=== PATIENT | male | born 1970 | race Caucasian/White ===

== ENCOUNTER 2016-05-04 08:08 | Inpatient (IN) | payer OTHER ==
[2016-05-04 10:10] VITALS: BMI 33.1
--- NOTE | 2016-05-04 11:50 | HP ---
CIWA Score - CIWA Score Nausea/Vomitin-No Nausea/No Vomiting Muscle Tremors: 4-Moderate,w/Arms Extend Anxiety: 3 Agitation: 4-Moderately Restless Paroxysmal Sweats: 3 Orientation: 0-Oriented Tacttile Disturbances: 0-None Auditory Disturbances: 0-None Visual Disturbances: 0-None Headache: 1-Very Mild CIWA-Ar Total Score: 15 Admission ROS BHS - HPI Chief Complaint: I am here for detox. Allergies/Adverse Reactions: Allergies Allergy/AdvReac Type Severity Reaction Status Date / Time No Known Allergies Allergy Verified 05/04/16 09:51 History of Present Illness: pt is a 46yr old male with a long history of alcohol dependence seeking detox for treatment. Exam Limitations: Intoxication - Ebola screening Have you traveled outside of the country in the last 21 days: No Have you had contact with anyone from an Ebola affected area: No Have you been sick,other than usual withdrawal symptoms: No Do you have a fever: No - Review of Systems Constitutional: Chills, Diaphoresis, Loss of Appetite, Night Sweats, Changes in sleep EENT: reports: Tearing, Nose Congestion Respiratory: reports: Cough, Productive cough (greenish/yellowish) Cardiac: reports: Syncope GI: reports: Nausea, Poor Appetite, Poor Fluid Intake, Indigestion : reports: No Symptoms Reported Musculoskeletal: reports: Back Pain Integumentary: reports: Bruising (ecchymosis to right side of buttock d/t fall 4 days ago), Flushing, Sweating Neuro: reports: Headache, Seizure (last seizure three yrs ago), Tingling, Tremors Endocrine: reports: Flushing, Intolerance to Cold, Intolerance to Heat Hematology: reports: No Symptoms Reported Psychiatric: reports: Judgement Intact, Mood/Affect Appropiate, Orientated x3, Agitated, Anxious Other Systems: Reviewed and Negative Patient History - Patient Medical History Hx Anemia: No Hx Asthma: No Hx Chronic Obstructive Pulmonary Disease (COPD): No Hx Cancer: No Hx Cardiac Disorders: No Hx Congestive Heart Failure: No Hx Hypertension: No Hx Hypercholesterolemia: Yes (NO MEDS) Hx Pacemaker: No HX Cerebrovascular Accident: No Hx Seizures: Yes (alcohol related-last episode was in 2013) Hx Dementia: No Hx Diabetes: No Hx Gastrointestinal Disorders: No Hx Liver Disease: No Hx Genitourinary Disorders: No Hx Sexually Transmitted Disorders: Yes (syphilis at age 17) Hx Renal Disease (ESRD): No Hx Thyroid Disease: No Hx Human Immunodeficiency Virus (HIV): No (NEGATIVE HX 09/20 last) Hx Hepatitis C: No Hx Depression: Yes Hx Suicide Attempt: No Hx Bipolar Disorder: Yes (on Seroquel and Zoloft as per Hx.) Hx Schizophrenia: No - Patient Surgical History Past Surgical History: No Hx Neurologic Surgery: No Hx Cataract Extraction: No Hx Cardiac Surgery: No Hx Lung Surgery: No Hx Breast Surgery: No Hx Breast Biopsy: No Hx Abdominal Surgery: No Hx Appendectomy: No Hx Cholecystectomy: No Hx Genitourinary Surgery: No Hx Section: No Hx Orthopedic Surgery: No Anesthesia Reaction: No - PPD History Previous Implant?: Yes Documented Results: Positive w/o proof Results: CXR neg 04/23 PPD to be Administered?: No - Reproductive History Patient is a Female of Child Bearing Age (11 -55 yrs old): No - Smoking Cessation Smoking history: Current every day smoker Have you smoked in the past 12 months: Yes Aproximately how many cigarettes per day: 5 Cigars Per Day: 0 Hx Chewing Tobacco Use: No Initiated information on smoking cessation: Yes 'Breaking Loose' booklet given: 05/04/16 - Substance & Tx. History Hx Alcohol Use: Yes Substance Use Type: Alcohol Hx Substance Use Treatment: Yes - Substances Abused Alcohol-vodka/beer Route: Oral Frequency: Daily Amount used: 4-5 pts./1-6 pk. Age of first use: 11 Date of Last Use: 05/04/16 Family Disease History - Family Disease History Family Disease History: Diabetes: Mother (HTN), Other: Father (alcohol,) , Mother Admission Physical Exam S - Vital Signs Vital Signs: Vital Signs - 24 hr 05/04/16 09:58 Temperature 97 F L Pulse Rate 112 H Respiratory 19 Rate Blood Pressure 136/86 - Physical General Appearance: Yes: Appropriately Dressed, Moderate Distress, Tremorous, Irritable, Sweating, Anxious HEENTM: Yes: Hearing grossly Normal, Nasal Congestion, Rhinorrhea Respiratory: Yes: Lungs Clear, Normal Breath Sounds, No Respiratory Distress Neck: Yes: No masses,lesions,Nodules Breast: Yes: Within Normal Limits Cardiology: Yes: Regular Rhythm, Regular Rate, S1, S2 Abdominal: Yes: Normal Bowel Sounds Genitourinary: Yes: Within Normal Limits Back: Yes: Normal Inspection Musculoskeletal: Yes: Back pain Extremities: Yes: Normal Inspection, Tremors Neurological: Yes: Fully Oriented, Alert, Normal Response Integumentary: Yes: Diaphoresis, Other (bruising with eccymosis to right side of buttock d/t fall) Lymphatic: Yes: Within Normal Limits - Diagnostic (1) Alcohol dependence with withdrawal, uncomplicated Current Visit: Yes Status: Chronic (2) Nicotine dependence Current Visit: Yes Status: Chronic Qualifiers: Nicotine product type: cigarettes Substance use status: uncomplicated Qualified Code(s): F17.210 - Nicotine dependence, cigarettes, uncomplicated (3) Alcohol related seizure Current Visit: No Status: Inactive (4) Hyperlipidemia Current Visit: Yes Status: Chronic Qualifiers: Hyperlipidemia type: unspecified Qualified Code(s): E78.5 - Hyperlipidemia, unspecified Cleared for Admission [facility] - Detox or Rehab [facility] Level of Care: Medically Managed Detox Regimen/Protocol: Librium [facility] Breath Alcohol Content Breath Alcohol Content: 0.189 Urine Drug Screen - Results Drug Screen Negative: No Urine Drug Screen Results: BZO-Benzodiazepines
[2016-05-04] MEDS ORDERED: MAGNESIUM HYDROX 2400MG/30ML ORAL SUSPENSION 30 ML CUP PO PRN (11:56)
[2016-05-04] MEDS ORDERED: IBUPROFEN 400 MG TABLET (FP) PO PRN (11:56)
[2016-05-04] MEDS ORDERED: MENTHOL/PHENOL 1 EACH UD MM PRN (11:56)
[2016-05-04] MEDS ORDERED: MAG HYDROX/AL HYDROX/SIMETH 30 ML UNIT-DOSE CUP PO PRN (11:56)
[2016-05-04] MEDS ORDERED: NICOTINE POLACRILEX 4 MG GUM BC PRN (11:56)
[2016-05-04] MEDS ORDERED: P-EPHED 60MG/TRIPROLIDI 2.5MG TABLET PO PRN (11:56)
[2016-05-04] MEDS ORDERED: MAGNESIUM CITRATE 300 ML BOTTLE PO PRN (11:56)
[2016-05-04] MEDS ORDERED: hydrOXYzine PAMOATE 50 MG CAPSULE (FP) PO PRN (11:56)
[2016-05-04] MEDS ORDERED: ACETAMINOPHEN 325 MG TABLET (FP) PO PRN (11:56)
[2016-05-04] MEDS ORDERED: LOPERAMIDE HCL 2 MG CAPSULE PO PRN (11:56)
[2016-05-04] MEDS ORDERED: chlordiazePOXIDE HCL 25 MG CAPSULE PO ONE (12:45)
[2016-05-04] MEDS: chlordiazePOXIDE HCL 25 MG CAPSULE PO SCH ×3 (13:44→22:28)
[2016-05-04] MEDS: LIDOCAINE 5% TOPICAL PATCH TP SCH (13:44)
--- NOTE | 2016-05-04 15:50 | CONSULT ---
[facility] Psychiatric Consult - Data Date of interview: 05/04/16 Admission source: [facility] Identifying data: Another admission to [facility] for this 46 y/o male seeking detox treatment on for alcohol dependence.Patient is single,a father of four,domiciled,unemployed and supported on SSI benefits. Substance Abuse History: - Smoking Cessation. Smoking history: Current every day smoker. Have you smoked in the past 12 months: Yes. Aproximately how many cigarettes per day: 5. Cigars Per Day: 0. Hx Chewing Tobacco Use: No. Initiated information on smoking cessation: Yes. 'Breaking Loose' booklet given : 05/04/16. - Substance & Tx. History. Hx Alcohol Use: Yes. Substance Use Type: Alcohol. Hx Substance Use Treatment: Yes. - Substances Abused. Alcohol-vodka/beer. Route: Oral. Frequency: Daily. Amount used: 4-5 pts./1-6 pk. Age of first use: 11. Date of Last Use: 05/04/16. Confirmed by the patient in my interview. Medical History: Hypercholesterolemia,arthritis and alcohol induced seizures ( not recent).Noted report of past treatment for syphilis at age 17. Psychiatric History: Psychiatric history remains unchanged since our last encounter in 01/2016.History as follows : diagnosed with Bipolar Disorder; history of two psychiatric hospitalizations ([facility] and [facility]).Onset of psychiatric disturbances in 2006.Mr Stokes gets his psychiatric outpatient services at [facility].Maintained on a regimen of seroquel 400 mg/hs (taken two days ago as per self-report).No reported history of suicide attempts. Physical/Sexual Abuse/Trauma History: Patient denies. Additional Comment: Urine Drug Screen Results: BZO-Benzodiazepines.Noted. Mental Status Exam - Mental Status Exam Alert and Oriented to: Time, Place, Person Cognitive Function: Grossly Intact Patient Appearance: Well Groomed (obese) Mood: Nervous, Withdrawn Affect: Mood Congruent Patient Behavior: Sedated (moderately), Fatigued Speech Pattern: Clear, Delayed Voice Loudness: Moderately Soft/Quiet Thought Process: Goal Oriented Thought Disorder: Not Present Hallucinations: Denies Suicidal Ideation: Denies Homicidal Ideation: Denies Insight/Judgement: Poor Sleep: Fair Appetite: Good Muscle strength/Tone: Normal Gait/Station: Normal Psychiatric Findings - Problem List ([place] 1, 2,3) (1) Alcohol dependence with withdrawal, uncomplicated Current Visit: Yes Status: Chronic (2) Nicotine dependence Current Visit: Yes Status: Acute Qualifiers: Nicotine product type: cigarettes Substance use status: uncomplicated Qualified Code(s): F17.210 - Nicotine dependence, cigarettes, uncomplicated (3) Bipolar II disorder Current Visit: Yes Status: Chronic (4) Substance induced mood disorder Current Visit: Yes Status: Acute (5) Hyperlipidemia Current Visit: Yes Status: Chronic Qualifiers: Hyperlipidemia type: unspecified Qualified Code(s): E78.5 - Hyperlipidemia, unspecified - Initial Treatment Plan Initial Treatment Plan: Psychoeducation.Detoxification.Medications : zoloft 100 mg po daily + seroquel 300 mg (reduced) po hs.Side effects/benefits discussed with this patient.Made aware of risk of EPS (akathisia,dystonias,dyskinesias), neuroleptic malignant syndrome,metabolic syndrome (seroquel),sexual dysfunction, suicidal ideation (zoloft).Patient agrees to continue care on these drugs in spite of explained risks.Observation.
[2016-05-04 18:50] LABS: URINE APPEARANCE CLEAR; URINE BILIRUBIN NEGATIVE (NEGATIVE); URINE BLOOD NEGATIVE (NEGATIVE); URINE COLOR AMBER; URINE GLUCOSE (UA) NEGATIVE (NEGATIVE); URINE KETONE NEGATIVE (NEGATIVE); URINE LEUK ESTERASE NEGATIVE (NEGATIVE); URINE NITRITE NEGATIVE (NEGATIVE); URINE PROTEIN NEGATIVE (NEGATIVE); URINE UROBILINOGEN 4.0 E.U/dl E.U./dl (0.2-1.0)
[2016-05-04] MEDS: chlordiazePOXIDE HCL 25 MG CAPSULE PO PRN (20:03)
[2016-05-04] MEDS: THIAMINE HCL 100 MG TABLET (FP) PO SCH (22:28)
[2016-05-04] MEDS: QUEtiapine FUMARATE 300 MG TABLET PO SCH (22:28)
[2016-05-04] MEDS: diphenhydrAMINE HCL 50 MG CAPSULE PO PRN (22:28)
[2016-05-04] MEDS: METHYL SALICYLATE/MENTHOL OINT 30 GM TUBE TP SCH (22:28)
[2016-05-05] MEDS: guaiFENesin/D-METHORPHAN HB 10 ML UNIT-DOSE CUPS PO PRN ×2 (00:57→17:34)
[2016-05-05] MEDS: chlordiazePOXIDE HCL 25 MG CAPSULE PO PRN ×2 (01:30→15:02)
[2016-05-05] MEDS: chlordiazePOXIDE HCL 25 MG CAPSULE PO SCH ×4 (05:31→22:32)
[2016-05-05 10:02] LABS: MCHC 33.5 g/dl (32.0-35.9); MEAN CELL VOLUME 104.4 fl (80-96); MEAN PLT VOLUME 8.1 fl (7.5-11.1); PLATELET COUNT 231 K/MM3 (134-434); RDW 13.8 % (11.9-15.9); WHITE BLOOD COUNT 6.4 K/mm3 (4.0-10.0)
[2016-05-05] MEDS: LIDOCAINE 5% TOPICAL PATCH TP SCH (10:26)
[2016-05-05] MEDS: PRENATAL VITAMINS W/ FOLIC ACID TABLET (FP) PO SCH (10:27)
[2016-05-05] MEDS: SERTRALINE HCL 50 MG TABLET (FP) PO SCH (10:27)
[2016-05-05] MEDS: METHYL SALICYLATE/MENTHOL OINT 30 GM TUBE TP SCH ×2 (10:27→22:33)
[2016-05-05 10:29] LABS: ALBUMIN 3.7 g/dl (3.4-5.0); ALK PHOS 94 U/L (45-117); ANION GAP 8 (8-16); BILIRUBIN,TOTAL 0.6 mg/dL (0.2-1.0); CALCIUM 8.2 mg/dL (8.5-10.1); CO2 27 mmol/L (21-32); CREATININE 0.8 mg/dL (0.7-1.3); GLUCOSE,RANDOM 134 mg/dL (74-106); SGOT/AST 85 U/L (15-37); SGPT/ALT 79 U/L (12-78); TOT PROT 7.1 g/dl (6.4-8.2)
--- NOTE | 2016-05-05 10:46 | PN ---
[facility] CIWA - CIWA Score Nausea/Vomitin-No Nausea/No Vomiting Muscle Tremors: 4-Moderate,w/Arms Extend Anxiety: 4-Mod. Anxious/Guarded Agitation: 4-Moderately Restless Paroxysmal Sweats: 1-Minimal Palms Moist Orientation: 0-Oriented Tacttile Disturbances: 3-Moderate Itch/Numb/Burn Auditory Disturbances: 0-None Visual Disturbances: 0-None Headache: 0-None Present CIWA-Ar Total Score: 16 S Progress Note (SOAP) Subjective: ANXIETY,TREMORS,SWEATS,INTERMITTENT SLEEP Objective: 05/05/16 10:45 Vital Signs Temperature 97 F L 05/05/16 09:58 Pulse Rate 110 H 05/05/16 09:58 Respiratory Rate 18 05/05/16 09:58 Blood Pressure 127/85 05/05/16 09:58 O2 Sat by Pulse Oximetry (%) Laboratory Last Values WBC 6.4 K/mm3 (4.0-10.0) D 05/05/16 06:00 RBC 3.33 M/mm3 (4.00-5.60) L D 05/05/16 06:00 Hgb 11.6 GM/dL (11.7-16.9) L D 05/05/16 06:00 Hct 34.7 % (35.4-49) L D 05/05/16 06:00 MCV 104.4 fl (80-96) H 05/05/16 06:00 MCHC 33.5 g/dl (32.0-35.9) 05/05/16 06:00 RDW 13.8 % (11.9-15.9) 05/05/16 06:00 Plt Count 231 K/MM3 (134-434) D 05/05/16 06:00 MPV 8.1 fl (7.5-11.1) 05/05/16 06:00 Sodium 140 mmol/L (136-145) 05/05/16 06:00 Potassium 3.6 mmol/L (3.5-5.1) 05/05/16 06:00 Chloride 105 mmol/L (98-107) 05/05/16 06:00 Carbon Dioxide 27 mmol/L (21-32) 05/05/16 06:00 Anion Gap 8 (8-16) 05/05/16 06:00 BUN 7 mg/dL (7-18) D 05/05/16 06:00 Creatinine 0.8 mg/dL (0.7-1.3) 05/05/16 06:00 Creat Clearance w eGFR > 60 (>60) 05/05/16 06:00 Random Glucose 134 mg/dL (74-106) H 05/05/16 06:00 Calcium 8.2 mg/dL (8.5-10.1) L 05/05/16 06:00 Total Bilirubin 0.6 mg/dL (0.2-1.0) D 05/05/16 06:00 AST 85 U/L (15-37) H D 05/05/16 06:00 ALT 79 U/L (12-78) H D 05/05/16 06:00 Alkaline Phosphatase 94 U/L (45-117) 05/05/16 06:00 Total Protein 7.1 g/dl (6.4-8.2) 05/05/16 06:00 Albumin 3.7 g/dl (3.4-5.0) 05/05/16 06:00 Urine Color Jo Ann 05/04/16 13:55 Urine Appearance Clear 05/04/16 13:55 Urine pH 5.0 (5.0-8.0) 05/04/16 13:55 Ur Specific Bernice 1.024 (1.001-1.035) 05/04/16 13:55 Urine Protein Negative (NEGATIVE) 05/04/16 13:55 Urine Glucose (UA) Negative (NEGATIVE) 05/04/16 13:55 Urine Ketones Negative (NEGATIVE) 05/04/16 13:55 Urine Blood Negative (NEGATIVE) 05/04/16 13:55 Urine Nitrite Negative (NEGATIVE) 05/04/16 13:55 Urine Bilirubin Negative (NEGATIVE) 05/04/16 13:55 Urine Urobilinogen 4.0 e.u/dl E.U./dl (0.2-1.0) 05/04/16 13:55 Ur Leukocyte Esterase Negative (NEGATIVE) 05/04/16 13:55 Hepatitis C Antibody <0.1 s/co ratio (0.0-0.9) 05/04/16 12:00 Assessment: 05/05/16 10:45 WITHDRAWAL SX Plan: CONTINUE DETOX
--- NOTE | 2016-05-05 15:35 | EKG ---
Test Reason : Blood Pressure : / mmHG Vent. Rate : 090 BPM Atrial Rate : 090 BPM P-R Int : 182 ms QRS Dur : 090 ms QT Int : 380 ms P-R-T Axes : 041 029 021 degrees QTc Int : 464 ms NORMAL SINUS RHYTHM NORMAL ECG WHEN COMPARED WITH ECG OF 21-JUN-2015 10:50, NO SIGNIFICANT CHANGE WAS FOUND Confirmed by CAMILO MNOTEZ MD ([id number]) on 05/05/2016 3:35:17 PM Referred By: Jesus Green Confirmed By:CAMILO MONTEZ MD
[2016-05-05] MEDS: QUEtiapine FUMARATE 300 MG TABLET PO SCH (22:32)
[2016-05-05] MEDS: THIAMINE HCL 100 MG TABLET (FP) PO SCH (22:32)
[2016-05-05] MEDS: diphenhydrAMINE HCL 50 MG CAPSULE PO PRN (22:33)
[2016-05-06] MEDS: chlordiazePOXIDE HCL 25 MG CAPSULE PO SCH (05:30)
[2016-05-06] MEDS: PRENATAL VITAMINS W/ FOLIC ACID TABLET (FP) PO SCH (10:33)
[2016-05-06] MEDS: chlordiazePOXIDE 5 MG CAPSULE PO SCH ×3 (10:33→22:31)
[2016-05-06] MEDS: SERTRALINE HCL 50 MG TABLET (FP) PO SCH (10:33)
[2016-05-06] MEDS: METHYL SALICYLATE/MENTHOL OINT 30 GM TUBE TP SCH ×2 (10:33→22:34)
[2016-05-06] MEDS: LIDOCAINE 5% TOPICAL PATCH TP SCH (10:34)
--- NOTE | 2016-05-06 11:55 | PN ---
[facility] CIWA - CIWA Score Nausea/Vomitin-No Nausea/No Vomiting Muscle Tremors: 4-Moderate,w/Arms Extend Anxiety: 4-Mod. Anxious/Guarded Agitation: 4-Moderately Restless Paroxysmal Sweats: 1-Minimal Palms Moist Orientation: 0-Oriented Tacttile Disturbances: 3-Moderate Itch/Numb/Burn Auditory Disturbances: 0-None Visual Disturbances: 0-None Headache: 0-None Present CIWA-Ar Total Score: 16 BHS Progress Note (SOAP) Subjective: ANXIETY,SWEATS,FATIGUE. Objective: 05/06/16 11:54 Vital Signs Temperature 98.3 F 05/06/16 09:48 Pulse Rate 89 05/06/16 09:48 Respiratory Rate 18 05/06/16 09:48 Blood Pressure 123/93 05/06/16 09:48 O2 Sat by Pulse Oximetry (%) Laboratory Last Values WBC 6.4 K/mm3 (4.0-10.0) D 05/05/16 06:00 RBC 3.33 M/mm3 (4.00-5.60) L D 05/05/16 06:00 Hgb 11.6 GM/dL (11.7-16.9) L D 05/05/16 06:00 Hct 34.7 % (35.4-49) L D 05/05/16 06:00 MCV 104.4 fl (80-96) H 05/05/16 06:00 MCHC 33.5 g/dl (32.0-35.9) 05/05/16 06:00 RDW 13.8 % (11.9-15.9) 05/05/16 06:00 Plt Count 231 K/MM3 (134-434) D 05/05/16 06:00 MPV 8.1 fl (7.5-11.1) 05/05/16 06:00 Sodium 140 mmol/L (136-145) 05/05/16 06:00 Potassium 3.6 mmol/L (3.5-5.1) 05/05/16 06:00 Chloride 105 mmol/L (98-107) 05/05/16 06:00 Carbon Dioxide 27 mmol/L (21-32) 05/05/16 06:00 Anion Gap 8 (8-16) 05/05/16 06:00 BUN 7 mg/dL (7-18) D 05/05/16 06:00 Creatinine 0.8 mg/dL (0.7-1.3) 05/05/16 06:00 Creat Clearance w eGFR > 60 (>60) 05/05/16 06:00 Random Glucose 134 mg/dL (74-106) H 05/05/16 06:00 Calcium 8.2 mg/dL (8.5-10.1) L 05/05/16 06:00 Total Bilirubin 0.6 mg/dL (0.2-1.0) D 05/05/16 06:00 AST 85 U/L (15-37) H D 05/05/16 06:00 ALT 79 U/L (12-78) H D 05/05/16 06:00 Alkaline Phosphatase 94 U/L (45-117) 05/05/16 06:00 Total Protein 7.1 g/dl (6.4-8.2) 05/05/16 06:00 Albumin 3.7 g/dl (3.4-5.0) 05/05/16 06:00 Urine Color Jo Ann 05/04/16 13:55 Urine Appearance Clear 05/04/16 13:55 Urine pH 5.0 (5.0-8.0) 05/04/16 13:55 Ur Specific Macy 1.024 (1.001-1.035) 05/04/16 13:55 Urine Protein Negative (NEGATIVE) 05/04/16 13:55 Urine Glucose (UA) Negative (NEGATIVE) 05/04/16 13:55 Urine Ketones Negative (NEGATIVE) 05/04/16 13:55 Urine Blood Negative (NEGATIVE) 05/04/16 13:55 Urine Nitrite Negative (NEGATIVE) 05/04/16 13:55 Urine Bilirubin Negative (NEGATIVE) 05/04/16 13:55 Urine Urobilinogen 4.0 e.u/dl E.U./dl (0.2-1.0) 05/04/16 13:55 Ur Leukocyte Esterase Negative (NEGATIVE) 05/04/16 13:55 RPR Titer Nonreactive (NONREACTIVE) 05/05/16 06:00 Hepatitis C Antibody <0.1 s/co ratio (0.0-0.9) 05/04/16 12:00 Assessment: 05/06/16 11:55 WITHDRAWAL SX Plan: CONTINUE DETOX
[2016-05-06] MEDS: diphenhydrAMINE HCL 50 MG CAPSULE PO PRN (22:31)
[2016-05-06] MEDS: THIAMINE HCL 100 MG TABLET (FP) PO SCH (22:31)
[2016-05-06] MEDS: QUEtiapine FUMARATE 300 MG TABLET PO SCH (22:31)
[2016-05-07] MEDS: chlordiazePOXIDE 5 MG CAPSULE PO SCH (05:26)
--- NOTE | 2016-05-07 10:03 | PN ---
BHS Progress Note (SOAP) Subjective: DECREASED ANXIETY,SWEATS.DETOX PROCEEDING WELL. Objective: 05/07/16 10:02 Vital Signs Temperature 95.7 F L 05/07/16 06:11 Pulse Rate 67 05/07/16 09:19 Respiratory Rate 18 05/07/16 09:19 Blood Pressure 123/88 05/07/16 09:19 O2 Sat by Pulse Oximetry (%) Assessment: 05/07/16 10:02 DECREASED WITHDRAWAL SX Plan: CONTINUE DETOX.
[2016-05-07] MEDS: SERTRALINE HCL 50 MG TABLET (FP) PO SCH (10:28)
[2016-05-07] MEDS: PRENATAL VITAMINS W/ FOLIC ACID TABLET (FP) PO SCH (10:28)
[2016-05-07] MEDS: METHYL SALICYLATE/MENTHOL OINT 30 GM TUBE TP SCH ×2 (10:28→22:26)
[2016-05-07] MEDS: chlordiazePOXIDE HCL 10 MG CAPSULE PO SCH ×3 (10:28→22:26)
[2016-05-07] MEDS: LIDOCAINE 5% TOPICAL PATCH TP SCH (10:29)
[2016-05-07] MEDS: guaiFENesin/D-METHORPHAN HB 10 ML UNIT-DOSE CUPS PO PRN (20:11)
[2016-05-07] MEDS: THIAMINE HCL 100 MG TABLET (FP) PO SCH (22:26)
[2016-05-07] MEDS: QUEtiapine FUMARATE 300 MG TABLET PO SCH (22:26)
[2016-05-07] MEDS: diphenhydrAMINE HCL 50 MG CAPSULE PO PRN (22:26)
[2016-05-08] MEDS: chlordiazePOXIDE HCL 10 MG CAPSULE PO SCH (05:28)
[2016-05-08 06:30] VITALS: BP 105/70; PULSE 85; TEMP 96
--- NOTE | 2016-05-08 08:33 | DS ---
[facility] Detox Discharge Summary Admission Date: 05/04/16 Discharge Date: 05/08/16 - History Present History: Alcohol Dependence Additional Comments: DETOX COMPLETED.ALERT O X 3. NAD. FOLLOW UP WITH REHAB REFERRAL/PMD FOR MEDICAL MANAGEMENT. Pertinent Past History: HYPERCHOLESTEROLEMIA SEIZURE DISORDER DEPRESSION - Physical Exam Results Vital Signs: Vital Signs Temperature 96.0 F L 05/08/16 06:29 Pulse Rate 85 05/08/16 06:29 Respiratory Rate 18 05/08/16 06:29 Blood Pressure 105/70 05/08/16 06:29 O2 Sat by Pulse Oximetry (%) Pertinent Admission Physical Exam Findings: WITHDRAWAL SX - Treatment Hospital Course: Detox Protocol Followed, Detoxed Safely, Responded well, Discharged Condition Good - Medication Discharge Medications: Ambulatory Orders Sertraline HCl [Zoloft -] 100 mg PO DAILY #30 tablet 06/22/15 Quetiapine Fumarate [Seroquel -] 400 mg PO HS #30 tablet 09/05/15 Quetiapine Fumarate [Seroquel -] 400 mg PO HS #30 tab 05/04/16 Sertraline HCl [Zoloft -] 100 mg PO DAILY #30 tablet 05/04/16 - Diagnosis (1) Head injury Status: Resolved Qualifiers: Qualified Code(s): S09.90XA - Unspecified injury of head, initial encounter (2) Nicotine dependence Status: Acute Qualifiers: Nicotine product type: cigarettes Substance use status: in withdrawal Qualified Code(s): F17.213 - Nicotine dependence, cigarettes, with withdrawal (3) Alcohol dependence with withdrawal, uncomplicated Status: Acute (4) Arthritis Status: Chronic (5) Hyperlipidemia Status: Chronic Qualifiers: Hyperlipidemia type: unspecified Qualified Code(s): E78.5 - Hyperlipidemia, unspecified (6) Seizure Status: Suspected - AMA Did Patient Leave Against Medical Advice: No
[2016-05-08] MEDS: PRENATAL VITAMINS W/ FOLIC ACID TABLET (FP) PO SCH (10:07)
[2016-05-08] MEDS: METHYL SALICYLATE/MENTHOL OINT 30 GM TUBE TP SCH (10:07)
[2016-05-08] MEDS: LIDOCAINE 5% TOPICAL PATCH TP SCH (10:07)
[2016-05-08] MEDS: SERTRALINE HCL 50 MG TABLET (FP) PO SCH (10:07)
== END 2016-05-08 09:30 | disposition home or self-care (01) | DRG 775 ==
LOC: YASAS 08:08 → Y3N 12:39
PROVIDERS: ADMIT Internal Medicine; ATTEND Internal Medicine
PROC: HZ2ZZZZ Detoxification Services for Substance Abuse Treatment (ICD-10-PCS; principal; 2016-05-08)
DX: F10.230 Alcohol dependence with withdrawal, uncomplicated (principal); F17.213 Nicotine dependence, cigarettes, with withdrawal; F31.81 Bipolar II disorder; M15.9 Polyosteoarthritis, unspecified; E78.5 Hyperlipidemia, unspecified; Z86.69 Personal history of other diseases of the nervous system and sense organs; S09.8XXA Other specified injuries of head, initial encounter; S30.0XXA Contusion of lower back and pelvis, initial encounter; W19.XXXA Unspecified fall, initial encounter; Y93.89 Activity, other specified; Y92.89 Other specified places as the place of occurrence of the external cause
CPT/HCPCS: 36415; 80053; 81003; 85027; 86593; 93005; 93010

== ENCOUNTER 2016-07-29 08:20 | Inpatient (IN) | payer OTHER ==
[2016-07-29 09:59] VITALS: BMI 31.4
--- NOTE | 2016-07-29 13:56 | HP ---
CIWA Score - CIWA Score Nausea/Vomitin Muscle Tremors: 4-Moderate,w/Arms Extend Anxiety: 4-Mod. Anxious/Guarded Agitation: 4-Moderately Restless Paroxysmal Sweats: 1-Minimal Palms Moist Orientation: 0-Oriented Tacttile Disturbances: 3-Moderate Itch/Numb/Burn Auditory Disturbances: 0-None Visual Disturbances: 0-None Headache: 1-Very Mild CIWA-Ar Total Score: 22 Admission ROS BHS - HPI Chief Complaint: DETOX TX FOR ALCOHOL DEPENDENCE/ACUT ALCOHOL INTOXICATION Allergies/Adverse Reactions: Allergies Allergy/AdvReac Type Severity Reaction Status Date / Time No Known Allergies Allergy Verified 07/29/16 10:27 History of Present Illness: 46 Y/O H/M WITH A HX OF ALCOHOL DEPENDENCE SEEKING DETOX TX. PT STATES HE WAS ON [facility] LAST NIGHT FOR ALCOHOL INTOXICATION, DISCHARGED THIS MORNING AND REFERRED TO DETOX/REHAB. Exam Limitations: No Limitations - Ebola screening Have you traveled outside of the country in the last 21 days: No Have you had contact with anyone from an Ebola affected area: No Have you been sick,other than usual withdrawal symptoms: No - Review of Systems Constitutional: Loss of Appetite, Night Sweats, Changes in sleep EENT: reports: Blurred Vision, Tearing, Nose Congestion, Dental Problems ( MISSING TEETH) Respiratory: reports: No Symptoms reported Cardiac: reports: Lightheadedness GI: reports: Diarrhea, Nausea, Poor Appetite, Poor Fluid Intake, Vomiting, Indigestion, Abdominal cramping : reports: No Symptoms Reported Musculoskeletal: reports: Muscle Pain, Other (ARTHRITIS KNEES) Integumentary: reports: No Symptoms Reported Neuro: reports: Headache, Seizure (DUE TO ALCOHOL WITHDRAWALS), Tremors, Unsteady Gait, Dizziness Endocrine: reports: No Symptoms Reported Hematology: reports: Anemia Psychiatric: reports: Orientated x3, Agitated, Anxious, Depressed Other Systems: Reviewed and Negative Patient History - Patient Medical History Hx Anemia: Yes (NO CURRENT MED) Hx Asthma: No Hx Chronic Obstructive Pulmonary Disease (COPD): No Hx Cancer: No Hx Cardiac Disorders: No Hx Congestive Heart Failure: No Hx Hypertension: Yes (NO CURRENT MED. LISINOPRIL 5 MG IN 2016 ON PHARM REC.) Hx Hypercholesterolemia: Yes (NO MEDS) Hx Pacemaker: No HX Cerebrovascular Accident: No Hx Seizures: Yes (alcohol related-last episode was in 2013) Hx Dementia: No Hx Diabetes: No Hx Gastrointestinal Disorders: No Hx Liver Disease: No Hx Genitourinary Disorders: No Hx Sexually Transmitted Disorders: Yes (syphilis) Hx Renal Disease (ESRD): No Hx Thyroid Disease: No Hx Human Immunodeficiency Virus (HIV): No (NEGATIVE HX ) Hx Hepatitis C: No Hx Depression: Yes Hx Suicide Attempt: No (DENIES) Hx Bipolar Disorder: Yes (on Seroquel and Zoloft as per Hx.) Hx Schizophrenia: No - Patient Surgical History Past Surgical History: No Hx Neurologic Surgery: No Hx Cataract Extraction: No Hx Cardiac Surgery: No Hx Lung Surgery: No Hx Breast Surgery: No Hx Breast Biopsy: No Hx Abdominal Surgery: No Hx Appendectomy: No Hx Cholecystectomy: No Hx Genitourinary Surgery: No Hx Orthopedic Surgery: No Anesthesia Reaction: No - PPD History Previous Implant?: Yes Documented Results: Positive w/o proof Results: CXR neg 04/23 PPD to be Administered?: No - Reproductive History Patient is a Female of Child Bearing Age (11 -55 yrs old): No (MALE) - Smoking Cessation Smoking history: Current every day smoker Have you smoked in the past 12 months: Yes Aproximately how many cigarettes per day: 9 Cigars Per Day: 0 Hx Chewing Tobacco Use: No Initiated information on smoking cessation: Yes 'Breaking Loose' booklet given: 07/29/16 - Substance & Tx. History Hx Alcohol Use: Yes (VODKA) Hx Substance Use: No (DECLINED) Substance Use Type: Alcohol Hx Substance Use Treatment: Yes ([facility]-DETOX) - Substances Abused Alcohol-beer/vodka Route: Oral Frequency: Daily Amount used: 7 (16 oz.)/2-3 pts. Age of first use: 11 Date of Last Use: 07/28/16 Family Disease History - Family Disease History Family Disease History: Diabetes: Mother (HTN), Other: Father (alcohol,) , Mother Admission Physical Exam S - Vital Signs Vital Signs: Vital Signs - 24 hr 07/29/16 09:55 Temperature 97.9 F Pulse Rate 91 H Respiratory 20 Rate Blood Pressure 123/83 - Physical General Appearance: Yes: Alcohol on Breath, Intoxicated, Obese, Anxious HEENTM: Yes: EOMI, Normocephalic, KAYLYN, Pharynx Normal, Nasal Congestion, Rhinorrhea Respiratory: Yes: Chest Non-Tender, Lungs Clear, Normal Breath Sounds, No Respiratory Distress Neck: Yes: Supple, Trachea in good position Breast: Yes: Breast Exam Deferred Cardiology: Yes: Regular Rhythm, Regular Rate, S1, S2 Abdominal: Yes: Normal Bowel Sounds, Non Tender, Soft Genitourinary: Yes: Other (N/C) Back: Yes: Within Normal Limits Musculoskeletal: Yes: full range of Motion, Gait Steady Extremities: Yes: Normal Range of Motion, Non-Tender, Tremors, Other (BRUISE ON OUTER ASPECT LOWER LEFT LEG DUE TO FALL) Neurological: Yes: vice president quality II-XII NML intact, Fully Oriented, Alert, Motor Strength 5/5 Integumentary: Yes: Dry, Warm Lymphatic: Yes: Within Normal Limits - Diagnostic (1) Alcohol dependence with withdrawal, uncomplicated Current Visit: Yes Status: Acute (2) Nicotine dependence Current Visit: Yes Status: Chronic Qualifiers: Nicotine product type: cigarettes Substance use status: in withdrawal Qualified Code(s): F17.213 - Nicotine dependence, cigarettes, with withdrawal (3) Arthritis Current Visit: Yes Status: Chronic Comment: BOTH KNEES AND LEFT WRIST (4) Seizure Current Visit: Yes Status: Suspected Qualifiers: Convulsion type: unspecified Qualified Code(s): R56.9 - Unspecified convulsions (5) Hyperlipidemia Current Visit: Yes Status: Suspected Qualifiers: Hyperlipidemia type: unspecified Qualified Code(s): E78.5 - Hyperlipidemia, unspecified Comment: NO CURRENT MED Cleared for Admission [facility] - Detox or Rehab [facility] Level of Care: Medically Managed Detox Regimen/Protocol: Librium [facility] Breath Alcohol Content Breath Alcohol Content: 0.245 Urine Drug Screen - Results Drug Screen Negative: No Urine Drug Screen Results: BZO-Benzodiazepines
[2016-07-29] MEDS ORDERED: LOPERAMIDE HCL 2 MG CAPSULE PO PRN (14:06)
[2016-07-29] MEDS ORDERED: ACETAMINOPHEN 325 MG TABLET (FP) PO PRN (14:06)
[2016-07-29] MEDS ORDERED: NICOTINE POLACRILEX 2 MG GUM BUC PRN (14:06)
[2016-07-29] MEDS ORDERED: P-EPHED 60MG/TRIPROLIDI 2.5MG TABLET PO PRN (14:06)
[2016-07-29] MEDS ORDERED: MAGNESIUM HYDROX 2400MG/30ML ORAL SUSPENSION 30 ML CUP PO PRN (14:06)
[2016-07-29] MEDS ORDERED: MAG HYDROX/AL HYDROX/SIMETH 30 ML UNIT-DOSE CUP PO PRN (14:06)
[2016-07-29] MEDS ORDERED: IBUPROFEN 400 MG TABLET (FP) PO PRN (14:06)
[2016-07-29] MEDS ORDERED: guaiFENesin/D-METHORPHAN HB 10 ML UNIT-DOSE CUPS PO PRN (14:06)
[2016-07-29] MEDS ORDERED: MENTHOL/PHENOL 1 EACH UD MM PRN (14:06)
[2016-07-29] MEDS ORDERED: diphenhydrAMINE HCL 50 MG CAPSULE PO PRN (14:06)
[2016-07-29] MEDS ORDERED: MAGNESIUM CITRATE 300 ML BOTTLE PO PRN (14:06)
[2016-07-29] MEDS ORDERED: chlordiazePOXIDE HCL 25 MG CAPSULE PO ONE (15:08)
[2016-07-29] MEDS: NICOTINE 14 MG/24 HOURS TOPICAL PATCH TD SCH (15:45)
[2016-07-29] MEDS: chlordiazePOXIDE HCL 25 MG CAPSULE PO SCH ×2 (17:19→22:13)
[2016-07-29 18:14] LABS: URINE APPEARANCE CLEAR; URINE BILIRUBIN NEGATIVE (NEGATIVE); URINE BLOOD NEGATIVE (NEGATIVE); URINE COLOR LTYELLOW; URINE GLUCOSE (UA) NEGATIVE (NEGATIVE); URINE KETONE NEGATIVE (NEGATIVE); URINE LEUK ESTERASE NEGATIVE (NEGATIVE); URINE NITRITE NEGATIVE (NEGATIVE); URINE PROTEIN NEGATIVE (NEGATIVE); URINE UROBILINOGEN NEGATIVE E.U./dl (0.2-1.0)
--- NOTE | 2016-07-29 19:08 | CONSULT ---
[facility] Psychiatric Consult - Data Date of interview: 07/29/16 Admission source: [facility] Identifying data: Readmission to [facility] for this 46 y/o male seeking detox treatment on for alcohol dependence.Patient is single,a father of four,domiciled,unemployed and supported on SSI benefits. Substance Abuse History: - Smoking Cessation. Smoking history: Current every day smoker. Have you smoked in the past 12 months: Yes. Aproximately how many cigarettes per day: 9. Cigars Per Day: 0. Hx Chewing Tobacco Use: No. Initiated information on smoking cessation: Yes. 'Breaking Loose' booklet given : 07/29/16. - Substance & Tx. History. Hx Alcohol Use: Yes (VODKA). Hx Substance Use: No (DECLINED). Substance Use Type: Alcohol. Hx Substance Use Treatment: Yes ([facility]). - Substances Abused. Alcohol-beer/vodka. Route: Oral. Frequency: Daily. Amount used: 7 (16 oz.)/2-3 pts. Age of first use: 11. Date of Last Use: 07/28/16. Confirmed by patient. Medical History: Hypercholesterolemia,arthritis and alcohol induced seizures ( not recent).Noted report of past treatment for syphilis (age 17). Psychiatric History: Diagnosed with Bipolar Disorder;history of two psychiatric hospitalizations ([facility] and [facility]).Onset of psychiatric disturbances in 2006.Mr Stokes still gets his psychiatric outpatient services at [facility] [place].Maintained on a regimen of seroquel 400 mg/hs ( taken a week ago as per self-report).No reported history of suicide attempts. Physical/Sexual Abuse/Trauma History: Patient denies. Additional Comment: Urine Drug Screen Results: BZO-Benzodiazepines.Noted. Mental Status Exam - Mental Status Exam Alert and Oriented to: Time, Place, Person Cognitive Function: Good Patient Appearance: Well Groomed Mood: Nervous, Withdrawn, Anxious Affect: Mood Congruent, Constricted Patient Behavior: Fatigued, Cooperative Speech Pattern: Clear (lebanese-speaking) Voice Loudness: Normal Thought Process: Goal Oriented Thought Disorder: Not Present Hallucinations: Denies Suicidal Ideation: Denies Homicidal Ideation: Denies Insight/Judgement: Poor Sleep: Poorly, Difficulty falling asleep Appetite: Good Muscle strength/Tone: Normal Gait/Station: Normal Psychiatric Findings - Problem List ([place] 1, 2,3) (1) Alcohol dependence with withdrawal, uncomplicated Current Visit: Yes Status: Acute (2) Nicotine dependence Current Visit: Yes Status: Acute Qualifiers: Nicotine product type: cigarettes Substance use status: in withdrawal Qualified Code(s): F17.213 - Nicotine dependence, cigarettes, with withdrawal (3) Substance induced mood disorder Current Visit: Yes Status: Acute (4) Bipolar II disorder Current Visit: Yes Status: Chronic (5) Arthritis Current Visit: Yes Status: Chronic Comment: BOTH KNEES AND LEFT WRIST (6) Hyperlipidemia Current Visit: Yes Status: Suspected Qualifiers: Hyperlipidemia type: unspecified Qualified Code(s): E78.5 - Hyperlipidemia, unspecified Comment: NO CURRENT MED (7) Insomnia Current Visit: Yes Status: Acute - Initial Treatment Plan Initial Treatment Plan: Psychoeducation.Detoxification in progress.Seroquel 200 mg po hs (intentionally reduced in view of self-report of non-adherence for one week + current polypharmacy).Will titrate back to 400 mg/hs in next 24 hours if dose is well tolerated (absence of oversedation/orthostatic hypotension) .Patient is informed of this strategy.Mr Stokes is in agreement with careplan.Side effects/benefits of seroquel are discussed with the patient.Observation.
[2016-07-29] MEDS: chlordiazePOXIDE HCL 25 MG CAPSULE PO PRN (19:23)
[2016-07-29] MEDS: QUEtiapine FUMARATE 200 MG TABLET PO SCH (22:13)
[2016-07-29] MEDS: THIAMINE HCL 100 MG TABLET (FP) PO SCH (22:13)
[2016-07-30] MEDS: chlordiazePOXIDE HCL 25 MG CAPSULE PO SCH ×4 (06:03→22:32)
[2016-07-30] MEDS: chlordiazePOXIDE HCL 25 MG CAPSULE PO PRN ×2 (08:38→14:34)
[2016-07-30 10:06] LABS: MCH 35.6 pg (25.7-33.7); MCHC 34.3 g/dl (32.0-35.9); PLATELET COUNT 571 K/MM3 (134-434); RDW 14.4 % (11.9-15.9); WHITE BLOOD COUNT 10.3 K/mm3 (4.0-10.0)
[2016-07-30] MEDS: PRENATAL VITAMINS W/ FOLIC ACID TABLET (FP) PO SCH (10:27)
[2016-07-30] MEDS: NICOTINE 14 MG/24 HOURS TOPICAL PATCH TD SCH (10:27)
[2016-07-30 10:37] LABS: ALBUMIN 3.7 g/dl (3.4-5.0); ALK PHOS 92 U/L (45-117); ANION GAP 12 (8-16); BILIRUBIN,TOTAL 0.2 mg/dL (0.2-1.0); CALCIUM 8.6 mg/dL (8.5-10.1); CO2 22 mmol/L (21-32); COCKROFT - GAULT 136.92; CREATININE 0.8 mg/dL (0.7-1.3); GLUCOSE,RANDOM 123 mg/dL (74-106); SGOT/AST 64 U/L (15-37); SGPT/ALT 60 U/L (12-78); TOT PROT 7.6 g/dl (6.4-8.2)
[2016-07-30] MEDS ORDERED: cloNIDine HCL 0.1 MG TABLET PO ONE (11:25)
--- NOTE | 2016-07-30 11:28 | PN ---
S CIWA - CIWA Score Nausea/Vomitin-No Nausea/No Vomiting Muscle Tremors: 4-Moderate,w/Arms Extend Anxiety: 3 Agitation: 4-Moderately Restless Paroxysmal Sweats: 3 Orientation: 0-Oriented Tacttile Disturbances: 0-None Auditory Disturbances: 0-None Visual Disturbances: 0-None Headache: 1-Very Mild CIWA-Ar Total Score: 15 BHS Progress Note (SOAP) Subjective: sweats shakes interrupted sleep body aches diarrhea Objective: 07/30/16 11:26 Vital Signs Temperature 98.2 F 07/30/16 09:45 Pulse Rate 109 07/30/16 09:45 Respiratory Rate 16 07/30/16 09:45 Blood Pressure 146/103 07/30/16 09:45 O2 Sat by Pulse Oximetry (%) Laboratory Tests 07/29/16 07/30/16 07/30/16 17:01 06:00 06:00 WBC 10.3 H D RBC 3.66 L Hgb 13.0 D Hct 38.0 MCV 104.0 H MCHC 34.3 RDW 14.4 Plt Count 571 H D MPV 8.0 Sodium 143 Potassium 4.2 Chloride 109 H Carbon Dioxide 22 Anion Gap 12 BUN 7 Creatinine 0.8 Creat Clearance w eGFR > 60 Random Glucose 123 H Calcium 8.6 Total Bilirubin 0.2 D AST 64 H D ALT 60 D Alkaline Phosphatase 92 Total Protein 7.6 Albumin 3.7 Urine Color Ltyellow Urine Appearance Clear Urine pH 5.0 Ur Specific [place] 1.025 Urine Protein Negative Urine Glucose (UA) Negative Urine Ketones Negative Urine Blood Negative Urine Nitrite Negative Urine Bilirubin Negative Urine Urobilinogen Negative Ur Leukocyte Esterase Negative awake/alert ambulating no acute distress Assessment: 07/30/16 11:28 withdrawal sx Plan: continue detox increase fluids clonidine 0.1mg x one for increased BP monitor BP
--- NOTE | 2016-07-30 13:12 | EKG ---
Test Reason : Blood Pressure : / mmHG Vent. Rate : 095 BPM Atrial Rate : 095 BPM P-R Int : 180 ms QRS Dur : 090 ms QT Int : 370 ms P-R-T Axes : 036 029 025 degrees QTc Int : 464 ms NORMAL SINUS RHYTHM NORMAL ECG WHEN COMPARED WITH ECG OF 04-MAY-2016 13:56, NO SIGNIFICANT CHANGE WAS FOUND Confirmed by ARETHA BHAGAT MD ([id number]) on 07/30/2016 1:12:22 PM Referred By: Shahram Cuevas Confirmed By:ARETHA BHAGAT MD
[2016-07-30] MEDS: hydrOXYzine PAMOATE 50 MG CAPSULE (FP) PO PRN ×2 (15:10→19:06)
[2016-07-30] MEDS: THIAMINE HCL 100 MG TABLET (FP) PO SCH (22:32)
[2016-07-30] MEDS: QUEtiapine FUMARATE 200 MG TABLET PO SCH (22:33)
[2016-07-31] MEDS: chlordiazePOXIDE HCL 25 MG CAPSULE PO SCH ×2 (06:00→10:36)
[2016-07-31] MEDS: NICOTINE 14 MG/24 HOURS TOPICAL PATCH TD SCH (10:36)
[2016-07-31] MEDS: PRENATAL VITAMINS W/ FOLIC ACID TABLET (FP) PO SCH (10:36)
[2016-07-31] MEDS: hydrOXYzine PAMOATE 50 MG CAPSULE (FP) PO PRN (10:36)
--- NOTE | 2016-07-31 12:09 | PN ---
S CIWA - CIWA Score Nausea/Vomitin Muscle Tremors: 3 Anxiety: 3 Agitation: 1-Slight > Activity Paroxysmal Sweats: 3 Orientation: 0-Oriented Tacttile Disturbances: 0-None Auditory Disturbances: 0-None Visual Disturbances: 3-Moderate Sensitivity Headache: 3-Moderate CIWA-Ar Total Score: 18 BHS Progress Note (SOAP) Subjective: Stomach Cramping, Diarrhea, Sweating, Interrupted Sleep, H/A, Body Aches, Tremors. Objective: PT. A & O X 3. 07/31/16 12:08 Vital Signs Temperature 97.1 F L 07/31/16 10:00 Pulse Rate 81 07/31/16 10:00 Respiratory Rate 16 07/31/16 10:00 Blood Pressure 127/90 07/31/16 10:00 O2 Sat by Pulse Oximetry (%) Laboratory Tests 07/29/16 07/30/16 07/30/16 17:01 06:00 06:00 WBC 10.3 H D RBC 3.66 L Hgb 13.0 D Hct 38.0 MCV 104.0 H MCHC 34.3 RDW 14.4 Plt Count 571 H D MPV 8.0 Sodium 143 Potassium 4.2 Chloride 109 H Carbon Dioxide 22 Anion Gap 12 BUN 7 Creatinine 0.8 Creat Clearance w eGFR > 60 Random Glucose 123 H Calcium 8.6 Total Bilirubin 0.2 D AST 64 H D ALT 60 D Alkaline Phosphatase 92 Total Protein 7.6 Albumin 3.7 Urine Color Ltyellow Urine Appearance Clear Urine pH 5.0 Ur Specific [place] 1.025 Urine Protein Negative Urine Glucose (UA) Negative Urine Ketones Negative Urine Blood Negative Urine Nitrite Negative Urine Bilirubin Negative Urine Urobilinogen Negative Ur Leukocyte Esterase Negative RPR Titer 07/30/16 06:00 WBC RBC Hgb Hct MCV MCHC RDW Plt Count MPV Sodium Potassium Chloride Carbon Dioxide Anion Gap BUN Creatinine Creat Clearance w eGFR Random Glucose Calcium Total Bilirubin AST ALT Alkaline Phosphatase Total Protein Albumin Urine Color Urine Appearance Urine pH Ur Specific [place] Urine Protein Urine Glucose (UA) Urine Ketones Urine Blood Urine Nitrite Urine Bilirubin Urine Urobilinogen Ur Leukocyte Esterase RPR Titer Nonreactive LABS NOTED. Assessment: 07/31/16 12:08 WITHDRAWAL SYMPTOMS. Plan: CONTINUE DETOX. CONTINUE TO MONITOR BP.
[2016-07-31] MEDS: chlordiazePOXIDE HCL 25 MG CAPSULE PO PRN (14:23)
--- NOTE | 2016-07-31 17:05 | PN ---
GAL[facility] Progress Note Note: Psychiatry Attending's note : Brief meeting with patient. Noted steady gait and clear sensorium. Mr Stokes is conversant,active and well controlled. Medications are well tolerated.Will titrate seroquel. Plan : Discontinue seroquel 200 mg po hs Seroquel 300 mg po hs. Patient is in agreement with this careplan.
[2016-07-31] MEDS: chlordiazePOXIDE 5 MG CAPSULE PO SCH ×2 (17:12→22:40)
[2016-07-31] MEDS: QUEtiapine FUMARATE 300 MG TABLET PO SCH (22:39)
[2016-07-31] MEDS: THIAMINE HCL 100 MG TABLET (FP) PO SCH (22:40)
[2016-08-01] MEDS ORDERED: diphenhydrAMINE HCL 25 MG CAPSULE (FP) PO ONE (01:13)
[2016-08-01] MEDS: chlordiazePOXIDE HCL 25 MG CAPSULE PO PRN (01:15)
[2016-08-01] MEDS: chlordiazePOXIDE 5 MG CAPSULE PO SCH ×2 (05:43→10:47)
[2016-08-01] MEDS: PRENATAL VITAMINS W/ FOLIC ACID TABLET (FP) PO SCH (10:46)
[2016-08-01] MEDS: NICOTINE 14 MG/24 HOURS TOPICAL PATCH TD SCH (10:47)
[2016-08-01] MEDS: hydrOXYzine PAMOATE 50 MG CAPSULE (FP) PO PRN ×2 (10:47→22:36)
--- NOTE | 2016-08-01 16:38 | PN ---
BHS Progress Note (SOAP) Subjective: Tremors, Interrupted sleep, Sweating. Objective: PT. A & O X 3. 08/01/16 16:37 Vital Signs Temperature 98.2 F 08/01/16 14:43 Pulse Rate 118 H 08/01/16 14:43 Respiratory Rate 20 08/01/16 14:43 Blood Pressure 97/80 08/01/16 14:43 O2 Sat by Pulse Oximetry (%) Laboratory Tests 07/29/16 07/30/16 07/30/16 17:01 06:00 06:00 WBC 10.3 H D RBC 3.66 L Hgb 13.0 D Hct 38.0 MCV 104.0 H MCHC 34.3 RDW 14.4 Plt Count 571 H D MPV 8.0 Sodium 143 Potassium 4.2 Chloride 109 H Carbon Dioxide 22 Anion Gap 12 BUN 7 Creatinine 0.8 Creat Clearance w eGFR > 60 Random Glucose 123 H Calcium 8.6 Total Bilirubin 0.2 D AST 64 H D ALT 60 D Alkaline Phosphatase 92 Total Protein 7.6 Albumin 3.7 Urine Color Ltyellow Urine Appearance Clear Urine pH 5.0 Ur Specific [place] 1.025 Urine Protein Negative Urine Glucose (UA) Negative Urine Ketones Negative Urine Blood Negative Urine Nitrite Negative Urine Bilirubin Negative Urine Urobilinogen Negative Ur Leukocyte Esterase Negative RPR Titer 07/30/16 06:00 WBC RBC Hgb Hct MCV MCHC RDW Plt Count MPV Sodium Potassium Chloride Carbon Dioxide Anion Gap BUN Creatinine Creat Clearance w eGFR Random Glucose Calcium Total Bilirubin AST ALT Alkaline Phosphatase Total Protein Albumin Urine Color Urine Appearance Urine pH Ur Specific [place] Urine Protein Urine Glucose (UA) Urine Ketones Urine Blood Urine Nitrite Urine Bilirubin Urine Urobilinogen Ur Leukocyte Esterase RPR Titer Nonreactive LABS NOTED. Assessment: 08/01/16 16:37 WITHDRAWAL SYMPTOMS. Plan: CONTINUE DETOX. ADVISED PATIENT TO FOLLOW-UP WITH [employer] AFTER DISCHARGE FROM DETOX FOR GENERAL MEDICAL ASSESSMENT AND FOR ABNORMAL ADMISSION CBC VALUES (WBC, RBC, MCV, AND PLATELETS).
[2016-08-01] MEDS: chlordiazePOXIDE HCL 10 MG CAPSULE PO SCH ×2 (18:11→22:35)
[2016-08-01] MEDS: QUEtiapine FUMARATE 300 MG TABLET PO SCH (22:35)
[2016-08-01] MEDS: THIAMINE HCL 100 MG TABLET (FP) PO SCH (23:26)
[2016-08-02] MEDS: chlordiazePOXIDE HCL 10 MG CAPSULE PO SCH (06:17)
--- NOTE | 2016-08-02 10:47 | DS ---
[facility] Detox Discharge Summary Admission Date: 07/29/16 Discharge Date: 08/02/16 - History Present History: Alcohol Dependence Pertinent Past History: Arthritis Mood disorder - Physical Exam Results Vital Signs: Vital Signs Temperature 97.6 F 08/02/16 06:40 Pulse Rate 71 08/02/16 06:40 Respiratory Rate 20 08/02/16 06:40 Blood Pressure 130/75 08/02/16 06:40 O2 Sat by Pulse Oximetry (%) Pertinent Admission Physical Exam Findings: Withdrawal SX. Laboratory Last Values WBC 10.3 K/mm3 (4.0-10.0) H D 07/30/16 06:00 RBC 3.66 M/mm3 (4.00-5.60) L 07/30/16 06:00 Hgb 13.0 GM/dL (11.7-16.9) D 07/30/16 06:00 Hct 38.0 % (35.4-49) 07/30/16 06:00 MCV 104.0 fl (80-96) H 07/30/16 06:00 MCHC 34.3 g/dl (32.0-35.9) 07/30/16 06:00 RDW 14.4 % (11.9-15.9) 07/30/16 06:00 Plt Count 571 K/MM3 (134-434) H D 07/30/16 06:00 MPV 8.0 fl (7.5-11.1) 07/30/16 06:00 Sodium 143 mmol/L (136-145) 07/30/16 06:00 Potassium 4.2 mmol/L (3.5-5.1) 07/30/16 06:00 Chloride 109 mmol/L (98-107) H 07/30/16 06:00 Carbon Dioxide 22 mmol/L (21-32) 07/30/16 06:00 Anion Gap 12 (8-16) 07/30/16 06:00 BUN 7 mg/dL (7-18) 07/30/16 06:00 Creatinine 0.8 mg/dL (0.7-1.3) 07/30/16 06:00 Creat Clearance w eGFR > 60 (>60) 07/30/16 06:00 Random Glucose 123 mg/dL (74-106) H 07/30/16 06:00 Calcium 8.6 mg/dL (8.5-10.1) 07/30/16 06:00 Total Bilirubin 0.2 mg/dL (0.2-1.0) D 07/30/16 06:00 AST 64 U/L (15-37) H D 07/30/16 06:00 ALT 60 U/L (12-78) D 07/30/16 06:00 Alkaline Phosphatase 92 U/L (45-117) 07/30/16 06:00 Total Protein 7.6 g/dl (6.4-8.2) 07/30/16 06:00 Albumin 3.7 g/dl (3.4-5.0) 07/30/16 06:00 Urine Color Ltyellow 07/29/16 17:01 Urine Appearance Clear 07/29/16 17:01 Urine pH 5.0 (5.0-8.0) 07/29/16 17:01 Ur Specific [place] 1.025 (1.005-1.025) 07/29/16 17:01 Urine Protein Negative (NEGATIVE) 07/29/16 17:01 Urine Glucose (UA) Negative (NEGATIVE) 07/29/16 17:01 Urine Ketones Negative (NEGATIVE) 07/29/16 17:01 Urine Blood Negative (NEGATIVE) 07/29/16 17:01 Urine Nitrite Negative (NEGATIVE) 07/29/16 17:01 Urine Bilirubin Negative (NEGATIVE) 07/29/16 17:01 Urine Urobilinogen Negative E.U./dl (0.2-1.0) 07/29/16 17:01 Ur Leukocyte Esterase Negative (NEGATIVE) 07/29/16 17:01 RPR Titer Nonreactive (NONREACTIVE) 07/30/16 06:00 labs noted - Treatment Hospital Course: Detox Protocol Followed, Detoxed Safely, Responded well, Discharged Condition Good, Rehab Referral Accepted Patient has Accepted a Rehab Referral to: [facility] - Medication Discharge Medications: Ambulatory Orders Sertraline HCl [Zoloft -] 100 mg PO DAILY #30 tablet 06/22/15 Quetiapine Fumarate [Seroquel -] 400 mg PO HS #30 tab 05/04/16 Quetiapine Fumarate [Seroquel -] 400 mg PO HS #30 tab 07/29/16 - Diagnosis (1) Alcohol dependence with withdrawal, uncomplicated Current Visit: Yes Status: Acute (2) Insomnia Current Visit: Yes Status: Acute (3) Nicotine dependence Current Visit: Yes Status: Acute Qualifiers: Nicotine product type: cigarettes Substance use status: in withdrawal Qualified Code(s): F17.213 - Nicotine dependence, cigarettes, with withdrawal (4) Substance induced mood disorder Current Visit: Yes Status: Acute (5) Arthritis Current Visit: Yes Status: Chronic (6) Bipolar II disorder Current Visit: Yes Status: Chronic (7) Hyperlipidemia Current Visit: Yes Status: Suspected Qualifiers: Hyperlipidemia type: unspecified Qualified Code(s): E78.5 - Hyperlipidemia, unspecified (8) Drug-induced mood disorder Current Visit: Yes Status: Acute (9) Substance-induced sleep disorder Current Visit: Yes Status: Acute - AMA Did Patient Leave Against Medical Advice: No
[2016-08-02 11:10] VITALS: BP 120/76; PULSE 107; TEMP 96.4
== END 2016-08-02 10:16 | disposition home or self-care (01) | DRG 775 ==
LOC: YASAS 08:20 → Y6N 11:23
PROVIDERS: ADMIT Internal Medicine Addiction Medicine; ATTEND Internal Medicine Addiction Medicine
PROC: HZ2ZZZZ Detoxification Services for Substance Abuse Treatment (ICD-10-PCS; principal; 2016-07-29)
DX: F10.230 Alcohol dependence with withdrawal, uncomplicated (principal); F17.213 Nicotine dependence, cigarettes, with withdrawal; F19.24 Other psychoactive substance dependence with psychoactive substance-induced mood disorder; F19.282 Other psychoactive substance dependence with psychoactive substance-induced sleep disorder; F31.81 Bipolar II disorder; I10 Essential (primary) hypertension; D64.9 Anemia, unspecified; G47.00 Insomnia, unspecified; M19.90 Unspecified osteoarthritis, unspecified site; E78.5 Hyperlipidemia, unspecified; E66.9 Obesity, unspecified; Z68.31 Body mass index [BMI] 31.0-31.9, adult; Z86.69 Personal history of other diseases of the nervous system and sense organs; Z87.438 Personal history of other diseases of male genital organs
CPT/HCPCS: 36415; 71020-TC; 80053; 81003; 85027; 86593; 93005; 93010

== ENCOUNTER → 2016-09-24 | Emergency (ER) | payer OTHER ==
[~2016-09-24] MED LIST: ALBUTEROL SO4 0.083% IH SOL 2.5 MG/3 ML VIAL.NEB. NEB ONE
[2016-09-24 13:27] VITALS: BP 113/78; PULSE 90; TEMP 97; BMI 33.3
[2016-09-24 13:41] LABS: BASOPHIL 1.4 % (0-2.0); EOSINOPHIL 1.9 % (0-4.5); MCH 35.2 pg (25.7-33.7); MCHC 33.5 g/dl (32.0-35.9); MEAN PLT VOLUME 7.9 fl (7.5-11.1); NEUTROPHILS 56.6 % (42.8-82.8); PLATELET COUNT 100 K/MM3 (134-434); RDW 14.4 % (11.9-15.9); WHITE BLOOD COUNT 5.7 K/mm3 (4.0-10.0)
--- NOTE | 2016-09-24 13:50 | PDOC ---
History of Present Illness - General History Source: Patient, Old Records Exam Limitations: Intoxication - History of Present Illness Initial Comments: 09/24/16 14:32 The patient is a 46-year-old man with a significant past medical history of hypertension, hypercholesterolemia, bipolar disorder, seizure disorder (alcohol related), anemia and EtOH abuse who was sent to the emergency department from [facility] for stabilization for detox program. As per [facility] note, the patient was in [facility] this morning and was transferred to [facility] for detox. Patient was found to be severely intoxicated at [facility] with a breathalyzer measurement of 0.455 mg/dl. As per patient, he was drinking last night approximately 2-3 bottles of his typical 375mL of Vodka. He only recalls that he was drinking after liquor store hours and it was late at night. He woke up this morning at a hospital. He currently is hungry and is screaming for food. Allergies: No Known Allergies Social History: Smokes 6 cigarettes/day for "a number of years). EtOH abuse ( approximately 3-4 bottles of approximately "375mL" of Vodka daily) No recreational drug use. <Lori Brunson - Last Filed: 09/24/16 16:24> <Aretha Renee - Last Filed: 09/25/16 10:19> - General Chief Complaint: Alcohol intoxication Stated Complaint: Alcohol intoxication Time Seen by Provider: 09/24/16 12:49 Past History <Lori Brunson - Last Filed: 09/24/16 16:24> - Past Medical History Anemia: Yes (NO CURRENT MED) Asthma: No Cancer: No Cardiac Disorders: No CVA: No COPD: No CHF: No Dementia: No Diabetes: No GI Disorders: No Disorders: No HTN: Yes (NO CURRENT MED. LISINOPRIL 5 MG IN 2016 ON PHARM REC.) Hypercholesterolemia: Yes (NO MEDS) Kidney Stones: No Liver Disease: No Psychiatric Problems: Yes (bipolar) Suicide Attempt (Hx): No (DENIES) Seizures: Yes (alcohol related-last episode was in 2013) Thyroid Disease: No - Surgical History Abdominal Surgery: No Appendectomy: No Cardiac Surgery: No Cholecystectomy: No Lung Surgery: No Neurologic Surgery: No Orthopedic Surgery: No - Reproductive History Testicular Surgery: No - Immunization History Immunization Up to Date: No - Psycho/Social/Smoking Cessation Hx Anxiety: No Suicidal Ideation: No Smoking History: Current every day smoker Have you smoked in the past 12 months: No Number of Cigarettes Smoked Daily: 9 Cigars Per Day: 0 Information on smoking cessation initiated: No 'Breaking Loose' booklet given: 07/29/16 Hx Alcohol Use: No Drug/Substance Use Hx: No Substance Use Type: Alcohol Hx Substance Use Treatment: Yes ([facility]) <Aretha Renee - Last Filed: 09/25/16 10:19> - Past Medical History Allergies/Adverse Reactions: Allergies Allergy/AdvReac Type Severity Reaction Status Date / Time No Known Allergies Allergy Verified 09/24/16 13:27 Home Medications: Ambulatory Orders Sertraline HCl [Zoloft -] 100 mg PO DAILY #30 tablet 06/22/15 Quetiapine Fumarate [Seroquel -] 400 mg PO HS #30 tab 05/04/16 Quetiapine Fumarate [Seroquel -] 400 mg PO HS #30 tab 07/29/16 Review of Systems - Review of Systems Able to Perform ROS?: No <Lori Brunson - Last Filed: 09/24/16 16:24> *Physical Exam - Vital Signs Last Vital Signs Temp Pulse Resp BP Pulse Ox 97.0 F L 90 18 113/78 100 09/24/16 12:10 09/24/16 12:10 09/24/16 12:10 09/24/16 12:10 09/24/16 12:10 - Physical Exam Comments: 09/24/16 14:33 GENERAL: The patient is in no acute distress. HEAD: Normal with no signs of trauma. EYES: PERRLA, EOMI, sclera anicteric, conjunctiva clear. ENT: Ears normal, nares patent, oropharynx clear without exudates. Moist mucous membranes. NECK: Normal range of motion, supple without lymphadenopathy, JVD, or masses. LUNGS: Breath sounds equal, clear to auscultation bilaterally. No wheezes, and no crackles. HEART:Regular rate and rhythm, normal S1 and S2 without murmur, rub or gallop. ABDOMEN: Soft, nontender, normoactive bowel sounds. No guarding, no rebound. EXTREMITIES: Normal range of motion, no edema. No clubbing or cyanosis. No erythema, or tenderness. NEUROLOGICAL: Cranial nerves II through XII grossly intact. Normal speech. No focal neurological deficits. MUSCULOSKELETAL: Back non-tender to palpation, no CVA tenderness SKIN: Warm, Dry, normal turgor, no rashes or lesions noted. <Lori Brunson - Last Filed: 09/24/16 16:24> - Vital Signs Last Vital Signs Temp Pulse Resp BP Pulse Ox 97.0 F L 90 18 113/78 100 09/24/16 12:10 09/24/16 12:10 09/24/16 12:10 09/24/16 12:10 09/24/16 12:10 <Aretha Renee - Last Filed: 09/25/16 10:19> ED Treatment Course - LABORATORY CBC & Chemistry Diagram: 09/24/16 13:30 09/24/16 13:30 - ADDITIONAL ORDERS Additional order review: Laboratory Results 09/24/16 09/24/16 13:30 13:30 Sodium 144 Potassium 3.8 Chloride 107 Carbon Dioxide 27 D Anion Gap 10 BUN 6 L Creatinine 0.7 Creat Clearance w eGFR > 60 Random Glucose 82 D Calcium 8.4 L Total Bilirubin 0.6 D AST 98 H D ALT 71 Alkaline Phosphatase 81 Total Protein 7.3 Albumin 4.0 Alcohol, Quantitative 367.6 H* 09/24/16 13:30 RBC 3.74 L MCV 105.0 H MCHC 33.5 RDW 14.4 MPV 7.9 Neutrophils % 56.6 D Lymphocytes % 32.1 D Monocytes % 8.0 Eosinophils % 1.9 D Basophils % 1.4 - RADIOLOGY Radiograph Interpretation: 09/24/16 15:12 EXAM: RAD/CHEST X-RAY PORTABLE Interpreted by Dr. Pasquale Garcia IMPRESSION: Comparison study July 30, 2016. Lungs are well aerated. No evidence of pneumonia, CHF, pleural effusion or pneumothorax. Unremarkable contour of the cardiomediastinal silhouette. Intact visualized osseous structures. <Lori Brunson - Last Filed: 09/24/16 16:24> - LABORATORY CBC & Chemistry Diagram: 09/24/16 13:30 09/24/16 13:30 <Aretha Renee - Last Filed: 09/25/16 10:19> Medical Decision Making - Medical Decision Making A portion of this note was documented by scribe services under my direction. I have reviewed the details of the note, within reason, and agree with the documentation with the following case summary and management plan written by me. Nursing documentation reviewed and incorporated into medical decision making This is a 46yo M h/o HTN, HLD, bipolar d/o, seizure disorder who was sent to the ER from [facility] due to intoxication The patient was in [facility] this morning and was transferred to [facility] for detox. Patient was found to be severely intoxicated at [facility] with a breathalyzer measurement of 0.455 mg/dl. Pt sent to the ER for stabilization Pt states he was drinking last night approximately 2-3 bottles of his typical 375mL of Vodka. Allergies: No Known Allergies Social History: Smokes 6 cigarettes/day for "a number of years). EtOH abuse ( approximately 3-4 bottles of approximately "375mL" of Vodka daily) No recreational drug use. 09/24/16 14:21 Laboratory Tests 09/24/16 09/24/16 09/24/16 13:30 13:30 13:30 WBC 5.7 D Hgb 13.2 Hct 39.2 Plt Count 100 L D BUN 6 L Creatinine 0.7 Alcohol, Quantitative 367.6 H* CXR: nml Trop added 09/24/16 15:[address] Cuevas This patient can be sent back to [facility] once he is stable, able to give a history This patient has been walking around the ER He has demanded a sandwich multiple times After given a sandwich, pt went back to bed and fell asleep 09/24/16 15:22 Laboratory Tests 09/24/16 13:30 Creatine Kinase 480 H CK-MB (CK-2) 2.719 Troponin I < 0.02 Labs nml Pt can be transferred to [facility] Pt last seen on rounds at 5:15 pm Alcohol intoxication <Aretha Renee - Last Filed: 09/25/16 10:19> *DC/Admit/Observation/Transfer - Attestations Scribe Attestion: 09/24/16 14:33 Documentation prepared by Lori Brunson, acting as medical claims analyst for Aretha Renee MD. <Lori Brunson - Last Filed: 09/24/16 16:24> - Discharge Dispostion Admit: No <Aretha Renee - Last Filed: 09/25/16 10:19> Diagnosis at time of Disposition: Alcohol intoxication Qualifiers: Complication of substance-induced condition: uncomplicated Qualified Code(s): F10.920 - Alcohol use, unspecified with intoxication, uncomplicated - Discharge Dispostion Disposition: I.P. ALCOHOL/SUBS ABUSE REHAB Condition at time of disposition: Stable - Patient Instructions Printed Discharge Instructions: DI for Alcohol Abuse
[2016-09-24 14:11] LABS: ALK PHOS 81 U/L (45-117); ANION GAP 10 (8-16); BILIRUBIN,TOTAL 0.6 mg/dL (0.2-1.0); CALCIUM 8.4 mg/dL (8.5-10.1); CO2 27 mmol/L (21-32); CREATININE 0.7 mg/dL (0.7-1.3); GLUCOSE,RANDOM 82 mg/dL (74-106); SGOT/AST 98 U/L (15-37); SGPT/ALT 71 U/L (12-78); TOT PROT 7.3 g/dl (6.4-8.2)
[2016-09-24 14:56] LABS: TROPONIN I < 0.02 ng/ml (0.00-0.05)
== END | disposition other institution (70) ==
LOC: JER 12:10
DX: F10.120 Alcohol abuse with intoxication, uncomplicated (principal); Y90.8 Blood alcohol level of 240 mg/100 ml or more; I10 Essential (primary) hypertension; E78.00 Pure hypercholesterolemia, unspecified; F31.9 Bipolar disorder, unspecified; G40.509 Epileptic seizures related to external causes, not intractable, without status epilepticus
CPT/HCPCS: 36415; 71010-TC; 80053; 80307; 82550; 82553; 84484; 85025; 99281-25

== ENCOUNTER 2016-12-05 23:50 | Inpatient (IN) | payer OTHER ==
[2016-12-05 23:58] VITALS: BMI 28.3
--- NOTE | 2016-12-06 00:21 | HP ---
CIWA Score - CIWA Score Nausea/Vomitin Muscle Tremors: 3 Anxiety: 2 Agitation: 2 Paroxysmal Sweats: 2 Orientation: 1-Uncertain about Date Tacttile Disturbances: 1-Very Mild Itch/Numbness Auditory Disturbances: 1-Very Mild Visual Disturbances: 1-Very Mild Sensitivity Headache: 2-Mild CIWA-Ar Total Score: 17 Admission ROS BHS - HPI Chief Complaint: WITHDRAWAL SYMPTOMS Allergies/Adverse Reactions: Allergies Allergy/AdvReac Type Severity Reaction Status Date / Time No Known Allergies Allergy Verified 09/24/16 13:27 History of Present Illness: 46 Y.O. MAN WITH AN EXTENSIVE HISTORY OF ALCOHOL DEPENDENCE IS HERE SEEKING DETOX. HE HAS HAD MULTIPLE ADMISSIONS HERE AND REPORTS HE DOES NOT HAVE A SIGNIFICANT PERIOD SOBER. Exam Limitations: Intoxication - Ebola screening Have you traveled outside of the country in the last 21 days: No (N) Have you had contact with anyone from an Ebola affected area: No Have you been sick,other than usual withdrawal symptoms: No Do you have a fever: No - Review of Systems Constitutional: Changes in sleep EENT: reports: Blurred Vision, Tearing Respiratory: reports: Shortness of Breath Cardiac: reports: Lightheadedness GI: reports: Diarrhea, Vomiting, Abdominal cramping : reports: No Symptoms Reported Musculoskeletal: reports: Back Pain Integumentary: reports: No Symptoms Reported Neuro: reports: Seizure (ETOH RELATED: LAST WAS IN 2014) Endocrine: reports: No Symptoms Reported Hematology: reports: No Symptoms Reported Psychiatric: reports: Judgement Intact, Mood/Affect Appropiate, Depressed, Disorientated Other Systems: Reviewed and Negative Patient History - Patient Medical History Hx Anemia: Yes (NO CURRENT MED) Hx Asthma: No Hx Chronic Obstructive Pulmonary Disease (COPD): No Hx Cancer: No Hx Cardiac Disorders: No Hx Congestive Heart Failure: No Hx Hypertension: Yes Hx Hypercholesterolemia: Yes (NO MEDS) Hx Pacemaker: No HX Cerebrovascular Accident: Yes (2015) Hx Seizures: Yes (alcohol related-last episode was in 2014) Hx Dementia: No Hx Diabetes: No Hx Gastrointestinal Disorders: No Hx Liver Disease: No Hx Genitourinary Disorders: No Hx Sexually Transmitted Disorders: Yes (syphilis) Hx Renal Disease (ESRD): No Hx Thyroid Disease: No Hx Human Immunodeficiency Virus (HIV): No (NEGATIVE HX ) Hx Hepatitis C: No Hx Depression: Yes Hx Suicide Attempt: No (DENIES) Hx Bipolar Disorder: Yes (on Seroquel and Zoloft as per Hx.) Hx Schizophrenia: No - Patient Surgical History Past Surgical History: No Hx Neurologic Surgery: No Hx Cataract Extraction: No Hx Cardiac Surgery: No Hx Lung Surgery: No Hx Breast Surgery: No Hx Breast Biopsy: No Hx Abdominal Surgery: No Hx Appendectomy: No Hx Cholecystectomy: No Hx Genitourinary Surgery: No Hx Section: No Hx Orthopedic Surgery: No Anesthesia Reaction: No - PPD History Results: CXR neg 09/2016 PPD to be Administered?: No - Reproductive History Patient is a Female of Child Bearing Age (11 -55 yrs old): No - Smoking Cessation Smoking history: Current every day smoker Have you smoked in the past 12 months: No Aproximately how many cigarettes per day: 5 Cigars Per Day: 0 Hx Chewing Tobacco Use: No Initiated information on smoking cessation: Yes 'Breaking Loose' booklet given: 12/06/16 - Substance & Tx. History Hx Alcohol Use: Yes Hx Substance Use: No Substance Use Type: Alcohol Hx Substance Use Treatment: Yes (DETOX: 07/2016 REHAB: 01/2016) - Substances Abused Alcohol Route: Oral Frequency: Daily Amount used: 2-3 PINTS OF LIQUOR Age of first use: 11 Date of Last Use: 12/06/16 Family Disease History - Family Disease History Family Disease History: Diabetes: Mother (HTN), Other: Father (alcohol,) , Mother Admission Physical Exam BHS - Vital Signs Vital Signs: Vital Signs - 24 hr 12/05/16 23:53 Temperature 98.8 F Pulse Rate 99 H Respiratory 18 Rate Blood Pressure 111/81 - Physical General Appearance: Yes: Intoxicated HEENTM: Yes: Hearing grossly Normal, Normocephalic, Normal Voice Respiratory: Yes: Chest Non-Tender, Lungs Clear, Normal Breath Sounds, No Respiratory Distress, No Accessory Muscle Use Neck: Yes: No masses,lesions,Nodules, Trachea in good position Breast: Yes: Breast Exam Deferred Cardiology: Yes: Regular Rhythm, Regular Rate Abdominal: Yes: Normal Bowel Sounds, Non Tender, Flat, Soft Genitourinary: Yes: Other (NO COMPLAINTS REPORTED) Back: Yes: Normal Inspection Musculoskeletal: Yes: full range of Motion, Gait Steady, Pelvis Stable Extremities: Yes: Normal Capillary Refill, Normal Inspection, Normal Range of Motion Neurological: Yes: Alert, Normal Mood/Affect, Normal Response Integumentary: Yes: Normal Color, Dry, Warm Lymphatic: Yes: Within Normal Limits - Diagnostic (1) Alcohol dependence in controlled environment Current Visit: Yes Status: Chronic (2) Nicotine dependence Current Visit: Yes Status: Chronic Qualifiers: Nicotine product type: cigarettes Substance use status: in withdrawal Qualified Code(s): F17.213 - Nicotine dependence, cigarettes, with withdrawal (3) Arthritis Current Visit: Yes Status: Chronic Comment: BOTH KNEES AND LEFT WRIST (4) Seizure Current Visit: Yes Status: Chronic Qualifiers: Convulsion type: unspecified Qualified Code(s): R56.9 - Unspecified convulsions Cleared for Admission [facility] - Detox or Rehab [facility] Level of Care: Medically Managed Detox Regimen/Protocol: Librium [facility] Breath Alcohol Content Breath Alcohol Content: 0.260 Urine Drug Screen - Results Drug Screen Negative: No Urine Drug Screen Results: BZO-Benzodiazepines
[2016-12-06] MEDS ORDERED: LOPERAMIDE HCL 2 MG CAPSULE PO PRN (00:36)
[2016-12-06] MEDS ORDERED: chlordiazePOXIDE HCL 25 MG CAPSULE PO PRN (00:36)
[2016-12-06] MEDS ORDERED: ACETAMINOPHEN 325 MG TABLET (FP) PO PRN (00:36)
[2016-12-06] MEDS ORDERED: MAGNESIUM CITRATE 300 ML BOTTLE PO PRN (00:36)
[2016-12-06] MEDS ORDERED: diphenhydrAMINE HCL 50 MG CAPSULE PO PRN (00:36)
[2016-12-06] MEDS ORDERED: guaiFENesin/D-METHORPHAN HB 10 ML UNIT-DOSE CUPS PO PRN (00:36)
[2016-12-06] MEDS ORDERED: P-EPHED 60MG/TRIPROLIDI 2.5MG TABLET PO PRN (00:36)
[2016-12-06] MEDS ORDERED: MAGNESIUM HYDROX 2400MG/30ML ORAL SUSPENSION 30 ML CUP PO PRN (00:36)
[2016-12-06] MEDS ORDERED: MENTHOL/PHENOL 1 EACH UD MM PRN (00:36)
[2016-12-06] MEDS ORDERED: chlordiazePOXIDE HCL 25 MG CAPSULE PO ONE (00:36)
[2016-12-06] MEDS ORDERED: MAG HYDROX/AL HYDROX/SIMETH 30 ML UNIT-DOSE CUP PO PRN (00:36)
[2016-12-06] MEDS: chlordiazePOXIDE HCL 25 MG CAPSULE PO SCH ×4 (06:05→22:30)
[2016-12-06 10:14] LABS: MCH 35.3 pg (25.7-33.7); MCHC 33.7 g/dl (32.0-35.9); MEAN CELL VOLUME 104.7 fl (80-96); MEAN PLT VOLUME 8.1 fl (7.5-11.1); PLATELET COUNT 125 K/MM3 (134-434); WHITE BLOOD COUNT 6.2 K/mm3 (4.0-10.0)
[2016-12-06 10:50] LABS: ALBUMIN 3.7 g/dl (3.4-5.0); ALK PHOS 70 U/L (45-117); ANION GAP 7 (8-16); BILIRUBIN,TOTAL 0.7 mg/dL (0.2-1.0); CALCIUM 7.9 mg/dL (8.5-10.1); CO2 26 mmol/L (21-32); CREATININE 0.7 mg/dL (0.7-1.3); GLUCOSE,RANDOM 66 mg/dL (74-106); SGOT/AST 58 U/L (15-37); SGPT/ALT 66 U/L (12-78); TOT PROT 6.9 g/dl (6.4-8.2)
[2016-12-06] MEDS: LISINOPRIL 5 MG TABLET (FP) PO SCH (10:54)
[2016-12-06] MEDS: hydrOXYzine PAMOATE 50 MG CAPSULE (FP) PO PRN (10:54)
[2016-12-06] MEDS: PRENATAL VITAMINS W/ FOLIC ACID TABLET (FP) PO SCH (10:54)
[2016-12-06] MEDS: IBUPROFEN 400 MG TABLET (FP) PO PRN (10:55)
[2016-12-06] MEDS: BACITRACIN 15 GM TUBE TOPICAL OINTMENT TP SCH (10:56)
[2016-12-06 11:27] LABS: HIV 1 & 2 AB NEGATIVE; HIV 1 AGp24 NEGATIVE
--- NOTE | 2016-12-06 12:27 | PN ---
[facility] Progress Note Note: PATIENT HAVING TREMOR,ADMITTED WITH ALCOHOL DEPENDENCE ON LIBRIUM REGIMENS EKG NSR,NORMAL ECG Vital Signs Temperature 97 F L 12/06/16 11:34 Pulse Rate 83 12/06/16 11:34 Respiratory Rate 18 12/06/16 11:34 Blood Pressure 133/84 12/06/16 11:34 O2 Sat by Pulse Oximetry (%) ABRASION OF LEFT FOREARM CONTINUE DETOX,BACITRACIN OINTMENT BID
[2016-12-06] MEDS ORDERED: FLU VACCINE QUAD 60 MCG/0.5 ML (MDV 17-18) IM ONE (14:00)
[2016-12-06 17:48] LABS: URINE APPEARANCE SLCLOUDY; URINE BILIRUBIN NEGATIVE (NEGATIVE); URINE BLOOD NEGATIVE (NEGATIVE); URINE COLOR LTYELLOW; URINE GLUCOSE (UA) NEGATIVE (NEGATIVE); URINE KETONE NEGATIVE (NEGATIVE); URINE LEUK ESTERASE NEGATIVE (NEGATIVE); URINE NITRITE NEGATIVE (NEGATIVE); URINE PROTEIN NEGATIVE (NEGATIVE); URINE UROBILINOGEN NEGATIVE mg/dL (0.2-1.0)
--- NOTE | 2016-12-06 20:44 | EKG ---
Test Reason : Blood Pressure : / mmHG Vent. Rate : 075 BPM Atrial Rate : 075 BPM P-R Int : 154 ms QRS Dur : 086 ms QT Int : 390 ms P-R-T Axes : -02 038 028 degrees QTc Int : 435 ms NORMAL SINUS RHYTHM NORMAL ECG WHEN COMPARED WITH ECG OF 06-DEC-2016 00:23, NONSPECIFIC T WAVE ABNORMALITY IS NO LONGER INFERIOR LEADS QT HAS SHORTENED Confirmed by TAMIKO THEODORE, NAVIN (2016) on 12/06/2016 8:44:20 PM Referred By: Confirmed By:NAVIN MORRISON MD
--- NOTE | 2016-12-06 20:46 | EKG ---
Test Reason : Blood Pressure : / mmHG Vent. Rate : 092 BPM Atrial Rate : 092 BPM P-R Int : 178 ms QRS Dur : 090 ms QT Int : 412 ms P-R-T Axes : 028 019 -22 degrees QTc Int : 509 ms NORMAL SINUS RHYTHM PROLONGED QT NONSPECIFIC T WAVE ABNORMALITY ABNORMAL ECG WHEN COMPARED WITH ECG OF 29-JUL-2016 15:03, NONSPECIFIC T WAVE ABNORMALITY IS NOW PRESENT QT HAS LENGTHENED Confirmed by TAMIKO THEODORE, NAVIN (2016) on 12/06/2016 8:46:10 PM Referred By: Confirmed By:NAVIN MORRISON MD
[2016-12-06] MEDS: THIAMINE HCL 100 MG TABLET (FP) PO SCH (22:30)
[2016-12-07] MEDS: chlordiazePOXIDE HCL 25 MG CAPSULE PO SCH ×4 (05:41→22:07)
--- NOTE | 2016-12-07 07:40 | CONSULT ---
[facility] Psychiatric Consult - Data Date of interview: 12/07/16 Admission source: [facility] Identifying data: This is 46 years old male with psychiatric hospitalization history intoxicated with: Alcohol, Xanax and Nicotine Substance Abuse History: Smoking history: Current every day smoker. Have you smoked in the past 12 months: No. Aproximately how many cigarettes per day: 5. Cigars Per Day: 0. Hx Chewing Tobacco Use: No. Initiated information on smoking cessation: Yes. 'Breaking Loose' booklet given: 12/06/16. - Substance & Tx. History. Hx Alcohol Use: Yes. Hx Substance Use: No. Substance Use Type : Alcohol. Hx Substance Use Treatment: Yes (DETOX: 07/2016 REHAB: 01/2016). - Substances Abused. Alcohol. Route: Oral. Frequency: Daily. Amount used: 2 -3 PINTS OF LIQUOR. Age of first use: 11. Date of Last Use: 12/06/16 Medical History: Arthritis, Head injury history, Hyperlipidemia, Syncope history Psychiatric History: Ptient reprots history of B[facility] most recent psychiatric admission on: 2014 at [facility]. Currently taking: Zoloft 100mg poqd. Seroquel 400mg po qhs Physical/Sexual Abuse/Trauma History: Denies Additional Comment: Zoloft 100mg poqd. Seroquel 400mg po qhs Mental Status Exam - Mental Status Exam Cognitive Function: Fair Patient Appearance: Unkempt Mood: Sad Affect: Flat Patient Behavior: Sedated Speech Pattern: Delayed Voice Loudness: Mildly Soft/Quiet Thought Process: Circumstantial Thought Disorder: Being Controlled Hallucinations: Denies Suicidal Ideation: Denies Homicidal Ideation: Denies Insight/Judgement: Fair Sleep: Difficulty falling asleep Appetite: Weight gain Muscle strength/Tone: Mild Hypertonicity Gait/Station: Shuffling Additional Comments: Zoloft 100mg poqd. Seroquel 400mg po qhs Psychiatric Findings - Problem List ([place] 1, 2,3) (1) Alcohol dependence in controlled environment Current Visit: Yes Status: Chronic (2) Nicotine dependence Current Visit: Yes Status: Chronic Qualifiers: Nicotine product type: cigarettes Substance use status: in withdrawal Qualified Code(s): F17.213 - Nicotine dependence, cigarettes, with withdrawal; F17.213 - Nicotine dependence, cigarettes, with withdrawal (3) Alcohol dependence with withdrawal, uncomplicated Current Visit: No Status: Acute (4) Alcohol intoxication Current Visit: No Status: Acute Qualifiers: Complication of substance-induced condition: uncomplicated Qualified Code(s): F10.920 - Alcohol use, unspecified with intoxication, uncomplicated; F10.920 - Alcohol use, unspecified with intoxication, uncomplicated; F10.920 - Alcohol use, unspecified with intoxication, uncomplicated (5) Drug-induced mood disorder Current Visit: No Status: Acute (6) Substance induced mood disorder Current Visit: No Status: Acute (7) Substance-induced sleep disorder Current Visit: No Status: Acute (8) Bipolar 1 disorder Current Visit: No Status: Chronic - Initial Treatment Plan Initial Treatment Plan: Zoloft 100mg poqd. Seroquel 200mg po qhs
--- NOTE | 2016-12-07 10:30 | PN ---
S CIWA - CIWA Score Nausea/Vomitin Muscle Tremors: 3 Anxiety: 3 Agitation: 3 Paroxysmal Sweats: 1-Minimal Palms Moist Orientation: 0-Oriented Tacttile Disturbances: 1-Very Mild Itch/Numbness Auditory Disturbances: 1-Very Mild Visual Disturbances: 0-None Headache: 2-Mild CIWA-Ar Total Score: 17 BHS Progress Note (SOAP) Subjective: alert,irritable,anxious,interrupted sleep,tremor Objective: 12/07/16 10:29 Vital Signs Temperature 97.9 F 12/07/16 09:22 Pulse Rate 71 12/07/16 09:22 Respiratory Rate 16 12/07/16 09:22 Blood Pressure 140/77 12/07/16 09:22 O2 Sat by Pulse Oximetry (%) 12/07/16 10:29 Laboratory Last Values WBC 6.2 K/mm3 (4.0-10.0) 12/06/16 08:00 RBC 3.51 M/mm3 (4.00-5.60) L 12/06/16 08:00 Hgb 12.4 GM/dL (11.7-16.9) 12/06/16 08:00 Hct 36.8 % (35.4-49) 12/06/16 08:00 MCV 104.7 fl (80-96) H 12/06/16 08:00 MCH 35.3 pg (25.7-33.7) H 12/06/16 08:00 MCHC 33.7 g/dl (32.0-35.9) 12/06/16 08:00 RDW 14.0 % (11.9-15.9) 12/06/16 08:00 Plt Count 125 K/MM3 (134-434) L D 12/06/16 08:00 MPV 8.1 fl (7.5-11.1) 12/06/16 08:00 Sodium 139 mmol/L (136-145) 12/06/16 08:00 Potassium 4.2 mmol/L (3.5-5.1) 12/06/16 08:00 Chloride 106 mmol/L (98-107) 12/06/16 08:00 Carbon Dioxide 26 mmol/L (21-32) 12/06/16 08:00 Anion Gap 7 (8-16) L 12/06/16 08:00 BUN 13 mg/dL (7-18) D 12/06/16 08:00 Creatinine 0.7 mg/dL (0.7-1.3) 12/06/16 08:00 Creat Clearance w eGFR > 60 (>60) 12/06/16 08:00 Random Glucose 66 mg/dL (74-106) L 12/06/16 08:00 Calcium 7.9 mg/dL (8.5-10.1) L 12/06/16 08:00 Total Bilirubin 0.7 mg/dL (0.2-1.0) 12/06/16 08:00 AST 58 U/L (15-37) H D 12/06/16 08:00 ALT 66 U/L (12-78) 12/06/16 08:00 Alkaline Phosphatase 70 U/L (45-117) 12/06/16 08:00 Total Protein 6.9 g/dl (6.4-8.2) 12/06/16 08:00 Albumin 3.7 g/dl (3.4-5.0) 12/06/16 08:00 Urine Color Ltyellow 12/06/16 17:00 Urine Appearance Slcloudy 12/06/16 17:00 Urine pH 5.0 (5.0-8.0) 12/06/16 17:00 Ur Specific [place] 1.020 (1.005-1.025) 12/06/16 17:00 Urine Protein Negative (NEGATIVE) 12/06/16 17:00 Urine Glucose (UA) Negative (NEGATIVE) 12/06/16 17:00 Urine Ketones Negative (NEGATIVE) 12/06/16 17:00 Urine Blood Negative (NEGATIVE) 12/06/16 17:00 Urine Nitrite Negative (NEGATIVE) 12/06/16 17:00 Urine Bilirubin Negative (NEGATIVE) 12/06/16 17:00 Urine Urobilinogen Negative mg/dL (0.2-1.0) 12/06/16 17:00 RPR Titer Nonreactive (NONREACTIVE) 12/06/16 08:00 HIV 1&2 Antibody Screen Negative 12/06/16 08:00 HIV P24 Antigen Negative 12/06/16 08:00 Assessment: 12/07/16 10:29 withdrawal symptom Plan: continue detox
[2016-12-07] MEDS: LISINOPRIL 5 MG TABLET (FP) PO SCH (10:51)
[2016-12-07] MEDS: PRENATAL VITAMINS W/ FOLIC ACID TABLET (FP) PO SCH (10:51)
[2016-12-07] MEDS: SERTRALINE HCL 50 MG TABLET (FP) PO SCH (10:51)
[2016-12-07] MEDS: BACITRACIN 0.9 GM PACKET TP SCH (11:42)
[2016-12-07] MEDS: BACITRACIN 15 GM TUBE TOPICAL OINTMENT TP SCH (11:43)
[2016-12-07] MEDS: IBUPROFEN 400 MG TABLET (FP) PO PRN (18:06)
[2016-12-07] MEDS: QUEtiapine FUMARATE 200 MG TABLET PO SCH (22:07)
[2016-12-07] MEDS: THIAMINE HCL 100 MG TABLET (FP) PO SCH (22:07)
[2016-12-08] MEDS: chlordiazePOXIDE 5 MG CAPSULE PO SCH ×4 (05:31→22:06)
--- NOTE | 2016-12-08 10:25 | PN ---
S CIWA - CIWA Score Nausea/Vomitin Muscle Tremors: 3 Anxiety: 3 Agitation: 2 Paroxysmal Sweats: 1-Minimal Palms Moist Orientation: 0-Oriented Tacttile Disturbances: 1-Very Mild Itch/Numbness Auditory Disturbances: 1-Very Mild Visual Disturbances: 0-None Headache: 2-Mild CIWA-Ar Total Score: 16 BHS Progress Note (SOAP) Subjective: ALERT,IRRITABLE,ANXIOUS,INTERRUPTED SLEEP,TREMOR Objective: 12/08/16 10:23 Vital Signs Temperature 97.8 F 12/08/16 06:00 Pulse Rate 114 H 12/08/16 06:00 Respiratory Rate 18 12/08/16 06:00 Blood Pressure 102/60 12/08/16 06:00 O2 Sat by Pulse Oximetry (%) Laboratory Last Values WBC 6.2 K/mm3 (4.0-10.0) 12/06/16 08:00 RBC 3.51 M/mm3 (4.00-5.60) L 12/06/16 08:00 Hgb 12.4 GM/dL (11.7-16.9) 12/06/16 08:00 Hct 36.8 % (35.4-49) 12/06/16 08:00 MCV 104.7 fl (80-96) H 12/06/16 08:00 MCH 35.3 pg (25.7-33.7) H 12/06/16 08:00 MCHC 33.7 g/dl (32.0-35.9) 12/06/16 08:00 RDW 14.0 % (11.9-15.9) 12/06/16 08:00 Plt Count 125 K/MM3 (134-434) L D 12/06/16 08:00 MPV 8.1 fl (7.5-11.1) 12/06/16 08:00 Sodium 139 mmol/L (136-145) 12/06/16 08:00 Potassium 4.2 mmol/L (3.5-5.1) 12/06/16 08:00 Chloride 106 mmol/L (98-107) 12/06/16 08:00 Carbon Dioxide 26 mmol/L (21-32) 12/06/16 08:00 Anion Gap 7 (8-16) L 12/06/16 08:00 BUN 13 mg/dL (7-18) D 12/06/16 08:00 Creatinine 0.7 mg/dL (0.7-1.3) 12/06/16 08:00 Creat Clearance w eGFR > 60 (>60) 12/06/16 08:00 Random Glucose 66 mg/dL (74-106) L 12/06/16 08:00 Calcium 7.9 mg/dL (8.5-10.1) L 12/06/16 08:00 Total Bilirubin 0.7 mg/dL (0.2-1.0) 12/06/16 08:00 AST 58 U/L (15-37) H D 12/06/16 08:00 ALT 66 U/L (12-78) 12/06/16 08:00 Alkaline Phosphatase 70 U/L (45-117) 12/06/16 08:00 Total Protein 6.9 g/dl (6.4-8.2) 12/06/16 08:00 Albumin 3.7 g/dl (3.4-5.0) 12/06/16 08:00 Urine Color Ltyellow 12/06/16 17:00 Urine Appearance Slcloudy 12/06/16 17:00 Urine pH 5.0 (5.0-8.0) 12/06/16 17:00 Ur Specific [place] 1.020 (1.005-1.025) 12/06/16 17:00 Urine Protein Negative (NEGATIVE) 12/06/16 17:00 Urine Glucose (UA) Negative (NEGATIVE) 12/06/16 17:00 Urine Ketones Negative (NEGATIVE) 12/06/16 17:00 Urine Blood Negative (NEGATIVE) 12/06/16 17:00 Urine Nitrite Negative (NEGATIVE) 12/06/16 17:00 Urine Bilirubin Negative (NEGATIVE) 12/06/16 17:00 Urine Urobilinogen Negative mg/dL (0.2-1.0) 12/06/16 17:00 RPR Titer Nonreactive (NONREACTIVE) 12/06/16 08:00 HIV 1&2 Antibody Screen Negative 12/06/16 08:00 HIV P24 Antigen Negative 12/06/16 08:00 Assessment: 12/08/16 10:24 WITHDRAWAL SYMPTOM Plan: CONTINUE DETOX
[2016-12-08] MEDS: PRENATAL VITAMINS W/ FOLIC ACID TABLET (FP) PO SCH (10:48)
[2016-12-08] MEDS: hydrOXYzine PAMOATE 50 MG CAPSULE (FP) PO PRN (10:48)
[2016-12-08] MEDS: SERTRALINE HCL 50 MG TABLET (FP) PO SCH (10:48)
[2016-12-08] MEDS: BACITRACIN 0.9 GM PACKET TP SCH (10:48)
[2016-12-08] MEDS: LISINOPRIL 5 MG TABLET (FP) PO SCH (10:48)
[2016-12-08] MEDS: THIAMINE HCL 100 MG TABLET (FP) PO SCH (22:06)
[2016-12-08] MEDS: QUEtiapine FUMARATE 200 MG TABLET PO SCH (22:06)
[2016-12-09] MEDS ORDERED: chlordiazePOXIDE HCL 10 MG CAPSULE PO SCH (05:00)
--- NOTE | 2016-12-09 08:50 | DS ---
[facility] Detox Discharge Summary Admission Date: 12/05/16 - History Present History: Sedative Dependence Additional Comments: follow up with after care program as arrangement Pertinent Past History: nicotine dependence seizure arthritis bipolar 1 disorder - Physical Exam Results Vital Signs: Vital Signs Temperature 97.9 F 12/09/16 06:00 Pulse Rate 57 L 12/09/16 06:00 Respiratory Rate 18 12/09/16 06:00 Blood Pressure 111/66 12/09/16 06:00 O2 Sat by Pulse Oximetry (%) Pertinent Admission Physical Exam Findings: withdrawal symptom - Treatment Hospital Course: Detox Protocol Followed, Detoxed Safely, Responded well, Discharged Condition Good Patient has Accepted a Rehab Referral to: declined - Medication Discharge Medications: Ambulatory Orders Sertraline HCl [Zoloft -] 100 mg PO DAILY #30 tablet 06/22/15 Quetiapine Fumarate [Seroquel -] 400 mg PO HS #30 tab 05/04/16 Quetiapine Fumarate [Seroquel -] 400 mg PO HS #30 tab 07/29/16 Quetiapine Fumarate [Seroquel -] 200 mg PO HS #30 tab 12/07/16 Sertraline HCl [Zoloft -] 100 mg PO DAILY #30 tablet 12/07/16 - Diagnosis (1) Alcohol dependence with withdrawal, uncomplicated Current Visit: No Status: Acute (2) Arthritis Current Visit: Yes Status: Chronic (3) Seizure Current Visit: Yes Status: Chronic Qualifiers: Convulsion type: unspecified Qualified Code(s): R56.9 - Unspecified convulsions; R56.9 - Unspecified convulsions; R56.9 - Unspecified convulsions; R56.9 - Unspecified convulsions (4) Bipolar 1 disorder Current Visit: No Status: Chronic - AMA Did Patient Leave Against Medical Advice: No
[2016-12-09 10:09] VITALS: BP 139/105; PULSE 103; TEMP 97.7
== END 2016-12-09 09:04 | disposition home or self-care (01) | DRG 775 ==
LOC: YASAS 23:50 → Y6N 23:57
PROVIDERS: ADMIT Internal Medicine; ATTEND Internal Medicine
PROC: HZ2ZZZZ Detoxification Services for Substance Abuse Treatment (ICD-10-PCS; principal; 2016-12-05)
DX: F10.230 Alcohol dependence with withdrawal, uncomplicated (principal); F10.220 Alcohol dependence with intoxication, uncomplicated; F17.213 Nicotine dependence, cigarettes, with withdrawal; F31.89 Other bipolar disorder; F19.24 Other psychoactive substance dependence with psychoactive substance-induced mood disorder; F19.282 Other psychoactive substance dependence with psychoactive substance-induced sleep disorder; M19.90 Unspecified osteoarthritis, unspecified site; I10 Essential (primary) hypertension; S50.812D Abrasion of left forearm, subsequent encounter; X58.XXXD Exposure to other specified factors, subsequent encounter; Z86.69 Personal history of other diseases of the nervous system and sense organs; Z86.2 Personal history of diseases of the blood and blood-forming organs and certain disorders involving the immune mechanism; Z86.73 Personal history of transient ischemic attack (TIA), and cerebral infarction without residual deficits; Z87.438 Personal history of other diseases of male genital organs
CPT/HCPCS: 36415; 80053; 81003; 85027; 86593; 87389; 90688; 93005; 93010; G0008

== ENCOUNTER 2017-02-11 08:44 | Inpatient (IN) | payer OTHER ==
[2017-02-11 09:58] VITALS: BMI 29.9
--- NOTE | 2017-02-11 12:05 | HP ---
CIWA Score - CIWA Score Nausea/Vomitin-No Nausea/No Vomiting Muscle Tremors: 4-Moderate,w/Arms Extend Anxiety: 4-Mod. Anxious/Guarded Agitation: 4-Moderately Restless Paroxysmal Sweats: 3 Orientation: 0-Oriented Tacttile Disturbances: 0-None Auditory Disturbances: 0-None Visual Disturbances: 0-None Headache: 1-Very Mild CIWA-Ar Total Score: 16 Admission ROS BHS - HPI Chief Complaint: I am here for detox. Allergies/Adverse Reactions: Allergies Allergy/AdvReac Type Severity Reaction Status Date / Time No Known Allergies Allergy Verified 02/11/17 10:13 History of Present Illness: pt is a 46yr old male with a history of alcohol dependence seeking detox for treatment. pt was at [facility] for a fall he experience d/t drinking excessively pt injured his left shoulder, pt was evaluated and released form ED to enter detox at our facility. Exam Limitations: No Limitations - Ebola screening Have you traveled outside of the country in the last 21 days: No Have you had contact with anyone from an Ebola affected area: No Have you been sick,other than usual withdrawal symptoms: No Do you have a fever: No - Review of Systems Constitutional: Chills, Diaphoresis, Loss of Appetite EENT: reports: No Symptoms Reported Respiratory: reports: No Symptoms reported Cardiac: reports: Syncope GI: reports: Diarrhea, Nausea, Poor Appetite, Poor Fluid Intake : reports: No Symptoms Reported (left shoulder pain d/t fall yesterday) Musculoskeletal: reports: Joint Pain Integumentary: reports: Bruising (to right side of forehead, cheek, nose and left shoulder. all d/t fall), Flushing Neuro: reports: Headache, Tingling, Tremors Endocrine: reports: Excessive Sweating, Flushing, Intolerance to Heat, Increased Hunger Hematology: reports: No Symptoms Reported Psychiatric: reports: Judgement Intact, Mood/Affect Appropiate, Orientated x3, Agitated, Anxious Other Systems: Reviewed and Negative Patient History - Patient Medical History Hx Anemia: No Hx Asthma: No Hx Chronic Obstructive Pulmonary Disease (COPD): No Hx Cancer: No Hx Cardiac Disorders: No Hx Congestive Heart Failure: No Hx Hypertension: No Hx Hypercholesterolemia: Yes (NO MEDS) Hx Pacemaker: No HX Cerebrovascular Accident: Yes (2016) Hx Seizures: No Hx Dementia: No Hx Diabetes: No Hx Gastrointestinal Disorders: No Hx Liver Disease: No Hx Genitourinary Disorders: No Hx Sexually Transmitted Disorders: No Hx Renal Disease (ESRD): No Hx Thyroid Disease: No Hx Human Immunodeficiency Virus (HIV): No (NEGATIVE HX ) Hx Hepatitis C: No Hx Depression: Yes Hx Suicide Attempt: No Hx Bipolar Disorder: Yes (on Seroquel and Zoloft as per Hx.) Hx Schizophrenia: No - Patient Surgical History Past Surgical History: No Hx Neurologic Surgery: No Hx Cataract Extraction: No Hx Cardiac Surgery: No Hx Lung Surgery: No Hx Breast Surgery: No Hx Breast Biopsy: No Hx Abdominal Surgery: No Hx Appendectomy: No Hx Cholecystectomy: No Hx Genitourinary Surgery: No Hx Section: No Hx Orthopedic Surgery: No Anesthesia Reaction: No - PPD History Previous Implant?: Yes Documented Results: Positive w/o proof Results: CXR neg 09/2016 - Reproductive History Patient is a Female of Child Bearing Age (11 -55 yrs old): No - Smoking Cessation Smoking history: Current every day smoker Have you smoked in the past 12 months: No Aproximately how many cigarettes per day: 5 Cigars Per Day: 0 Hx Chewing Tobacco Use: No Initiated information on smoking cessation: Yes 'Breaking Loose' booklet given: 02/11/17 - Substance & Tx. History Hx Alcohol Use: Yes Hx Substance Use: No Substance Use Type: Alcohol Hx Substance Use Treatment: Yes - Substances Abused Alcohol-voidka/beer Route: Oral Frequency: Daily Amount used: 2-3 pts./2-6 pks. Age of first use: 11 Date of Last Use: 02/11/17 Family Disease History - Family Disease History Family Disease History: Diabetes: Mother (HTN), Other: Father (alcohol,) , Mother Admission Physical Exam BHS - Vital Signs Vital Signs: Vital Signs - 24 hr 02/11/17 09:55 Temperature 98.5 F Pulse Rate 128 H Respiratory 18 Rate Blood Pressure 132/98 - Physical General Appearance: Yes: Appropriately Dressed, Moderate Distress, Tremorous, Irritable, Sweating, Anxious HEENTM: Yes: Hearing grossly Normal, Normocephalic, Normal Voice, Nasal Congestion, Rhinorrhea Respiratory: Yes: Lungs Clear, Normal Breath Sounds, No Respiratory Distress Neck: Yes: No masses,lesions,Nodules Breast: Yes: Within Normal Limits Cardiology: Yes: Regular Rhythm, Regular Rate, S1, S2 Abdominal: Yes: Normal Bowel Sounds, Non Tender, Soft Genitourinary: Yes: Within Normal Limits Back: Yes: Normal Inspection Musculoskeletal: Yes: Back pain, Muscle Pain Extremities: Yes: Normal Capillary Refill, Normal Inspection, Non-Tender, Tremors Neurological: Yes: Fully Oriented, Alert, Normal Response Integumentary: Yes: Normal Color, Diaphoresis Lymphatic: Yes: Within Normal Limits - Diagnostic (1) Alcohol dependence with withdrawal, uncomplicated Current Visit: Yes Status: Chronic (2) Depression Current Visit: Yes Status: Chronic (3) Nicotine dependence Current Visit: Yes Status: Chronic Qualifiers: Nicotine product type: cigarettes Substance use status: uncomplicated Qualified Code(s): F17.210 - Nicotine dependence, cigarettes, uncomplicated (4) Seizure Current Visit: No Status: Suspected Qualifiers: (5) Hyperlipidemia Current Visit: Yes Status: Chronic Qualifiers: Hyperlipidemia type: pure hypercholesterolemia Qualified Code(s): E78.00 - Pure hypercholesterolemia, unspecified; E78.0 - Pure hypercholesterolemia Comment: NO CURRENT MED (6) Shoulder abrasion Current Visit: Yes Status: Acute Qualifiers: Encounter type: initial encounter Laterality: left Qualified Code(s): S40.212A - Abrasion of left shoulder, initial encounter (7) Facial abrasion Current Visit: Yes Status: Acute Qualifiers: Encounter type: initial encounter Qualified Code(s): S00.81XA - Abrasion of other part of head, initial encounter Cleared for Admission [facility] - Detox or Rehab [facility] Level of Care: Medically Managed Detox Regimen/Protocol: Librium [facility] Breath Alcohol Content Breath Alcohol Content: 0.127 Urine Drug Screen - Results Drug Screen Negative: No Urine Drug Screen Results: BZO-Benzodiazepines, TCA-Tricyclic Antidepress
[2017-02-11] MEDS ORDERED: NICOTINE POLACRILEX 4 MG GUM BUC PRN (12:16)
[2017-02-11] MEDS ORDERED: hydrOXYzine PAMOATE 50 MG CAPSULE (FP) PO PRN (12:16)
[2017-02-11] MEDS ORDERED: ACETAMINOPHEN 325 MG TABLET (FP) PO PRN (12:16)
[2017-02-11] MEDS ORDERED: LOPERAMIDE HCL 2 MG CAPSULE PO PRN (12:16)
[2017-02-11] MEDS ORDERED: MAGNESIUM HYDROX 2400MG/30ML ORAL SUSPENSION 30 ML CUP PO PRN (12:16)
[2017-02-11] MEDS ORDERED: guaiFENesin/D-METHORPHAN HB 10 ML UNIT-DOSE CUPS PO PRN (12:16)
[2017-02-11] MEDS ORDERED: MAG HYDROX/AL HYDROX/SIMETH 30 ML UNIT-DOSE CUP PO PRN (12:16)
[2017-02-11] MEDS ORDERED: MAGNESIUM CITRATE 300 ML BOTTLE PO PRN (12:16)
[2017-02-11] MEDS ORDERED: P-EPHED 60MG/TRIPROLIDI 2.5MG TABLET PO PRN (12:16)
[2017-02-11] MEDS ORDERED: MENTHOL/PHENOL 1 EACH UD MM PRN (12:16)
[2017-02-11] MEDS ORDERED: chlordiazePOXIDE HCL 25 MG CAPSULE PO ONE (12:48)
[2017-02-11] MEDS: BACITRACIN 0.9 GM PACKET TP SCH ×2 (13:54→22:15)
[2017-02-11 14:41] LABS: HIV 1 & 2 AB NEGATIVE; HIV 1 AGp24 NEGATIVE
[2017-02-11] MEDS: chlordiazePOXIDE HCL 25 MG CAPSULE PO PRN ×2 (15:33→19:44)
--- NOTE | 2017-02-11 15:55 | CONSULT ---
[facility] Psychiatric Consult - Data Date of interview: 02/11/17 Admission source: [facility] Identifying data: This is 46 years old male with no psychiatric hospitalization history intoxicated with: Alcohol, Nicotine Substance Abuse History: - Smoking Cessation. Smoking history: Current every day smoker. Have you smoked in the past 12 months: No. Aproximately how many cigarettes per day: 5. Cigars Per Day: 0. Hx Chewing Tobacco Use: No. Initiated information on smoking cessation: Yes. 'Breaking Loose' booklet given : 02/11/17. - Substance & Tx. History. Hx Alcohol Use: Yes. Hx Substance Use : No. Substance Use Type: Alcohol. Hx Substance Use Treatment: Yes. - Substances Abused. Alcohol-voidka/beer. Route: Oral. Frequency: Daily. Amount used: 2-3 pts./2-6 pks. Age of first use: 11. Date of Last Use: Medical History: Seizure history. Hyperlipidemia Psychiatric History: Patient reports history of depression and anxiety, reports taking prior to admission: Zoloft 100mg [popqd. Seroquel 400mg po qhs Physical/Sexual Abuse/Trauma History: Denies Additional Comment: Zoloft 100mg [popqd. Seroquel 400mg po qhs Mental Status Exam - Mental Status Exam Alert and Oriented to: Person Cognitive Function: Fair Patient Appearance: Unkempt Mood: Sad Affect: Mood Congruent Patient Behavior: Appropriate Speech Pattern: Appropriate Voice Loudness: Normal Thought Process: Circumstantial, Goal Oriented Thought Disorder: Being Controlled Hallucinations: Denies Suicidal Ideation: Denies Homicidal Ideation: Denies Insight/Judgement: Fair Sleep: Difficulty falling asleep Appetite: Weight loss Muscle strength/Tone: Mild Hypotonicity Gait/Station: Shuffling Additional Comments: Zoloft 100mg [popqd. Seroquel 400mg po qhs Psychiatric Findings - Problem List ([place] 1, 2,3) (1) Depression Current Visit: Yes Status: Chronic (2) Nicotine dependence Current Visit: Yes Status: Chronic Qualifiers: Nicotine product type: cigarettes Substance use status: uncomplicated Qualified Code(s): F17.210 - Nicotine dependence, cigarettes, uncomplicated (3) Alcohol intoxication Current Visit: No Status: Acute Qualifiers: Complication of substance-induced condition: uncomplicated Qualified Code(s ): F10.920 - Alcohol use, unspecified with intoxication, uncomplicated (4) Drug-induced mood disorder Current Visit: No Status: Acute (5) Substance induced mood disorder Current Visit: No Status: Acute (6) Substance-induced sleep disorder Current Visit: No Status: Acute (7) Alcohol dependence in controlled environment Current Visit: No Status: Chronic (8) Bipolar II disorder Current Visit: No Status: Suspected - Initial Treatment Plan Initial Treatment Plan: Zoloft 100mg [popqd. Seroquel 400mg po qhs
[2017-02-11] MEDS: chlordiazePOXIDE HCL 25 MG CAPSULE PO SCH ×2 (16:43→22:16)
[2017-02-11 16:46] LABS: URINE APPEARANCE SLCLOUDY; URINE BILIRUBIN NEGATIVE (NEGATIVE); URINE BLOOD NEGATIVE (NEGATIVE); URINE COLOR YELLOW; URINE GLUCOSE (UA) NEGATIVE (NEGATIVE); URINE KETONE 1+ (NEGATIVE); URINE LEUK ESTERASE TRACE (NEGATIVE); URINE NITRITE NEGATIVE (NEGATIVE); URINE PROTEIN NEGATIVE (NEGATIVE)
[2017-02-11 17:25] LABS: URINE BACTERIA MANY /hpf (NONE SEEN); URINE MUCUS RARE; URINE RBC 1 /hpf (0-3); URINE WBC 2 /hpf (3-5)
[2017-02-11 19:41] LABS: URINE LEUK ESTERASE TRACE (NEGATIVE)
[2017-02-11] MEDS: THIAMINE HCL 100 MG TABLET (FP) PO SCH (22:15)
[2017-02-11] MEDS: QUEtiapine FUMARATE 200 MG TABLET PO SCH (22:16)
[2017-02-12] MEDS: chlordiazePOXIDE HCL 25 MG CAPSULE PO SCH ×4 (05:21→22:29)
[2017-02-12] MEDS: SERTRALINE HCL 50 MG TABLET (FP) PO SCH (10:35)
[2017-02-12] MEDS: BACITRACIN 0.9 GM PACKET TP SCH ×2 (10:35→22:29)
[2017-02-12] MEDS: PRENATAL VITAMINS W/ FOLIC ACID TABLET (FP) PO SCH (10:35)
[2017-02-12] MEDS: NICOTINE 21 MG/24 HOURS TOPICAL PATCH TD SCH (10:36)
--- NOTE | 2017-02-12 10:51 | EKG ---
Test Reason : Blood Pressure : / mmHG Vent. Rate : 103 BPM Atrial Rate : 103 BPM P-R Int : 164 ms QRS Dur : 090 ms QT Int : 354 ms P-R-T Axes : 043 045 037 degrees QTc Int : 463 ms SINUS TACHYCARDIA OTHERWISE NORMAL ECG WHEN COMPARED WITH ECG OF 06-DEC-2016 08:09, NO SIGNIFICANT CHANGE WAS FOUND Confirmed by MD GENTRY, GABBIE ([id number]) on 02/12/2017 10:50:52 AM Referred By: CARMEN HASSAN Confirmed By:GABBIE RINALDI MD
[2017-02-12 11:04] LABS: MCH 34.2 pg (25.7-33.7); MEAN CELL VOLUME 100.5 fl (80-96); MEAN PLT VOLUME 8.6 fl (7.5-11.1); PLATELET COUNT 197 K/MM3 (134-434); RDW 13.1 % (11.9-15.9); WHITE BLOOD COUNT 7.9 K/mm3 (4.0-10.0)
[2017-02-12 11:19] LABS: ALBUMIN 4.2 g/dl (3.4-5.0); ALK PHOS 89 U/L (45-117); ANION GAP 11 (8-16); BILIRUBIN,TOTAL 0.8 mg/dL (0.2-1.0); CALCIUM 9.2 mg/dL (8.5-10.1); CO2 26 mmol/L (21-32); CREATININE 0.9 mg/dL (0.7-1.3); GLUCOSE,RANDOM 152 mg/dL (74-106); SGOT/AST 34 U/L (15-37); SGPT/ALT 34 U/L (12-78); TOT PROT 8.1 g/dl (6.4-8.2)
[2017-02-12] MEDS: chlordiazePOXIDE HCL 25 MG CAPSULE PO PRN (12:48)
--- NOTE | 2017-02-12 13:23 | PN ---
S CIWA - CIWA Score Nausea/Vomitin-No Nausea/No Vomiting Muscle Tremors: 3 Anxiety: 4-Mod. Anxious/Guarded Agitation: 3 Paroxysmal Sweats: 3 Orientation: 2-Disoriented Date<2 days Tacttile Disturbances: 2-Mild Itch/Numbness/Burn Auditory Disturbances: 0-None Visual Disturbances: 0-None Headache: 3-Moderate CIWA-Ar Total Score: 20 B[facility] Progress Note (SOAP) Subjective: Tremors, Anxious, Sweating, Interrupted Sleep, H/A. Objective: PT. A & O X 2 (UNCERTAIN ABOUT DAY / DATE). PT. OBSERVED AMBULATING ON UNIT. NO ACUTE DISTRESS. 02/12/17 13:19 Vital Signs Temperature 99.9 F H 02/12/17 13:00 Pulse Rate 114 H 02/12/17 13:00 Respiratory Rate 18 02/12/17 13:00 Blood Pressure 142/98 02/12/17 13:00 O2 Sat by Pulse Oximetry (%) Laboratory Tests 02/11/17 02/11/17 02/12/17 12:20 15:15 06:00 WBC 7.9 RBC 4.16 Hgb 14.2 D Hct 41.8 MCV 100.5 H MCH 34.2 H MCHC 34.0 RDW 13.1 Plt Count 197 D MPV 8.6 Sodium Potassium Chloride Carbon Dioxide Anion Gap BUN Creatinine Creat Clearance w eGFR Random Glucose Calcium Total Bilirubin AST ALT Alkaline Phosphatase Total Protein Albumin Urine Color Yellow Urine Appearance Slcloudy Urine pH 6.0 Ur Specific [place] 1.011 Urine Protein Negative Urine Glucose (UA) Negative Urine Ketones 1+ H Urine Blood Negative Urine Nitrite Negative Urine Bilirubin Negative Urine Urobilinogen 2.0 Ur Leukocyte Esterase Trace H Urine WBC (Auto) 2 Urine RBC (Auto) 1 Ur Epithelial Cells Rare Urine Bacteria Many Urine Mucus Rare RPR Titer HIV 1&2 Antibody Screen Negative HIV P24 Antigen Negative 02/12/17 02/12/17 06:00 06:00 WBC RBC Hgb Hct MCV MCH MCHC RDW Plt Count MPV Sodium 135 L Potassium 4.2 Chloride 98 Carbon Dioxide 26 Anion Gap 11 BUN 9 D Creatinine 0.9 D Creat Clearance w eGFR > 60 Random Glucose 152 H D Calcium 9.2 Total Bilirubin 0.8 AST 34 D ALT 34 D Alkaline Phosphatase 89 D Total Protein 8.1 Albumin 4.2 Urine Color Urine Appearance Urine pH Ur Specific [place] Urine Protein Urine Glucose (UA) Urine Ketones Urine Blood Urine Nitrite Urine Bilirubin Urine Urobilinogen Ur Leukocyte Esterase Urine WBC (Auto) Urine RBC (Auto) Ur Epithelial Cells Urine Bacteria Urine Mucus RPR Titer Nonreactive HIV 1&2 Antibody Screen HIV P24 Antigen LABS NOTED. Assessment: 02/12/17 13:20 WITHDRAWAL SYMPTOMS. Plan: CONTINUE DETOX. BGM ACBK FOR ELEVATED ADMISSION RANDOM GLUCOSE LEVEL. CLONIDINE, 0.1 MG PO FOR DETOX SYMPTOMS AND FOR ELEVATED BP. INCREASE DAILY PO FLUID INTAKE.
[2017-02-12] MEDS ORDERED: cloNIDine HCL 0.1 MG TABLET PO ONE (14:00)
[2017-02-12] MEDS: THIAMINE HCL 100 MG TABLET (FP) PO SCH (22:29)
[2017-02-12] MEDS: QUEtiapine FUMARATE 200 MG TABLET PO SCH (22:29)
[2017-02-13] MEDS: chlordiazePOXIDE HCL 25 MG CAPSULE PO SCH ×2 (05:41→10:28)
[2017-02-13] MEDS: SERTRALINE HCL 50 MG TABLET (FP) PO SCH (10:28)
[2017-02-13] MEDS: NICOTINE 21 MG/24 HOURS TOPICAL PATCH TD SCH (10:28)
[2017-02-13] MEDS: BACITRACIN 0.9 GM PACKET TP SCH ×2 (10:28→22:23)
[2017-02-13] MEDS: PRENATAL VITAMINS W/ FOLIC ACID TABLET (FP) PO SCH (10:28)
[2017-02-13] MEDS ORDERED: METHYL SALICYLATE/MENTHOL OINT 30 GM TUBE TP SCH (11:15)
[2017-02-13] MEDS ORDERED: CYCLOBENZAPRINE HCL 10 MG TABLET (FP) PO PRN (12:18)
[2017-02-13] MEDS: IBUPROFEN 400 MG TABLET (FP) PO PRN (12:38)
--- NOTE | 2017-02-13 16:08 | PN ---
[facility] CIWA - CIWA Score Nausea/Vomitin-No Nausea/No Vomiting Muscle Tremors: 3 Anxiety: 5 Agitation: 4-Moderately Restless Paroxysmal Sweats: 4-Forehead w/Sweat Beads Orientation: 0-Oriented Tacttile Disturbances: 2-Mild Itch/Numbness/Burn Auditory Disturbances: 0-None Visual Disturbances: 0-None Headache: 0-None Present CIWA-Ar Total Score: 18 BHS Progress Note (SOAP) Subjective: Tremors, Diarrhea, Body Aches, Sweating, Interrupted Sleep. Objective: PT. A & O X 3, OBSERVED AMBULATING ON UNIT. NO ACUTE DISTRESS. 02/13/17 16:04 Vital Signs Temperature 98.4 F 02/13/17 15:07 Pulse Rate 109 H 02/13/17 15:07 Respiratory Rate 19 02/13/17 15:07 Blood Pressure 125/90 02/13/17 15:07 O2 Sat by Pulse Oximetry (%) Laboratory Tests 02/11/17 02/11/17 02/12/17 12:20 15:15 06:00 WBC 7.9 RBC 4.16 Hgb 14.2 D Hct 41.8 MCV 100.5 H MCH 34.2 H MCHC 34.0 RDW 13.1 Plt Count 197 D MPV 8.6 Sodium Potassium Chloride Carbon Dioxide Anion Gap BUN Creatinine Creat Clearance w eGFR POC Glucometer Random Glucose Calcium Total Bilirubin AST ALT Alkaline Phosphatase Total Protein Albumin Urine Color Yellow Urine Appearance Slcloudy Urine pH 6.0 Ur Specific [place] 1.011 Urine Protein Negative Urine Glucose (UA) Negative Urine Ketones 1+ H Urine Blood Negative Urine Nitrite Negative Urine Bilirubin Negative Urine Urobilinogen 2.0 Ur Leukocyte Esterase Trace H Urine WBC (Auto) 2 Urine RBC (Auto) 1 Ur Epithelial Cells Rare Urine Bacteria Many Urine Mucus Rare RPR Titer HIV 1&2 Antibody Screen Negative HIV P24 Antigen Negative 02/12/17 02/12/17 02/13/17 06:00 06:00 05:40 WBC RBC Hgb Hct MCV MCH MCHC RDW Plt Count MPV Sodium 135 L Potassium 4.2 Chloride 98 Carbon Dioxide 26 Anion Gap 11 BUN 9 D Creatinine 0.9 D Creat Clearance w eGFR > 60 POC Glucometer 100 Random Glucose 152 H D Calcium 9.2 Total Bilirubin 0.8 AST 34 D ALT 34 D Alkaline Phosphatase 89 D Total Protein 8.1 Albumin 4.2 Urine Color Urine Appearance Urine pH Ur Specific [place] Urine Protein Urine Glucose (UA) Urine Ketones Urine Blood Urine Nitrite Urine Bilirubin Urine Urobilinogen Ur Leukocyte Esterase Urine WBC (Auto) Urine RBC (Auto) Ur Epithelial Cells Urine Bacteria Urine Mucus RPR Titer Nonreactive HIV 1&2 Antibody Screen HIV P24 Antigen LABS NOTED. Assessment: 02/13/17 16:07 WITHDRAWAL SYMPTOMS. Plan: CONTINUE DETOX. PRN FLEXERIL FOR BODY ACHES / MUSCLE SPASMS. INCREASE DAILY PO FLUID INTAKE.
[2017-02-13] MEDS: chlordiazePOXIDE 5 MG CAPSULE PO SCH ×2 (17:21→22:24)
[2017-02-13] MEDS: QUEtiapine FUMARATE 200 MG TABLET PO SCH (22:23)
[2017-02-13] MEDS: THIAMINE HCL 100 MG TABLET (FP) PO SCH (22:23)
[2017-02-14] MEDS: chlordiazePOXIDE 5 MG CAPSULE PO SCH ×2 (05:54→10:26)
[2017-02-14] MEDS: BACITRACIN 0.9 GM PACKET TP SCH ×2 (10:26→22:40)
[2017-02-14] MEDS: NICOTINE 21 MG/24 HOURS TOPICAL PATCH TD SCH (10:26)
[2017-02-14] MEDS: PRENATAL VITAMINS W/ FOLIC ACID TABLET (FP) PO SCH (10:26)
[2017-02-14] MEDS: SERTRALINE HCL 50 MG TABLET (FP) PO SCH (10:26)
[2017-02-14] MEDS: IBUPROFEN 400 MG TABLET (FP) PO PRN (14:58)
--- NOTE | 2017-02-14 16:59 | PN ---
[facility] Progress Note (SOAP) Subjective: Tremor, chills, sweat, diarrhea Objective: 02/14/17 16:57 Last Vital Signs Temp Pulse Resp BP Pulse Ox 99.1 F 98 H 18 123/88 02/14/17 10:55 02/14/17 10:55 02/14/17 14:28 02/14/17 10:55 Laboratory Tests 02/11/17 02/11/17 02/12/17 12:20 15:15 06:00 WBC 7.9 RBC 4.16 Hgb 14.2 D Hct 41.8 MCV 100.5 H MCH 34.2 H MCHC 34.0 RDW 13.1 Plt Count 197 D MPV 8.6 Sodium Potassium Chloride Carbon Dioxide Anion Gap BUN Creatinine Creat Clearance w eGFR POC Glucometer Random Glucose Calcium Total Bilirubin AST ALT Alkaline Phosphatase Total Protein Albumin Urine Color Yellow Urine Appearance Slcloudy Urine pH 6.0 Ur Specific [place] 1.011 Urine Protein Negative Urine Glucose (UA) Negative Urine Ketones 1+ H Urine Blood Negative Urine Nitrite Negative Urine Bilirubin Negative Urine Urobilinogen 2.0 Ur Leukocyte Esterase Trace H Urine WBC (Auto) 2 Urine RBC (Auto) 1 Ur Epithelial Cells Rare Urine Bacteria Many Urine Mucus Rare RPR Titer HIV 1&2 Antibody Screen Negative HIV P24 Antigen Negative 02/12/17 02/12/17 02/13/17 06:00 06:00 05:40 WBC RBC Hgb Hct MCV MCH MCHC RDW Plt Count MPV Sodium 135 L Potassium 4.2 Chloride 98 Carbon Dioxide 26 Anion Gap 11 BUN 9 D Creatinine 0.9 D Creat Clearance w eGFR > 60 POC Glucometer 100 Random Glucose 152 H D Calcium 9.2 Total Bilirubin 0.8 AST 34 D ALT 34 D Alkaline Phosphatase 89 D Total Protein 8.1 Albumin 4.2 Urine Color Urine Appearance Urine pH Ur Specific [place] Urine Protein Urine Glucose (UA) Urine Ketones Urine Blood Urine Nitrite Urine Bilirubin Urine Urobilinogen Ur Leukocyte Esterase Urine WBC (Auto) Urine RBC (Auto) Ur Epithelial Cells Urine Bacteria Urine Mucus RPR Titer Nonreactive HIV 1&2 Antibody Screen HIV P24 Antigen 02/14/17 05:56 WBC RBC Hgb Hct MCV MCH MCHC RDW Plt Count MPV Sodium Potassium Chloride Carbon Dioxide Anion Gap BUN Creatinine Creat Clearance w eGFR POC Glucometer 109 Random Glucose Calcium Total Bilirubin AST ALT Alkaline Phosphatase Total Protein Albumin Urine Color Urine Appearance Urine pH Ur Specific [place] Urine Protein Urine Glucose (UA) Urine Ketones Urine Blood Urine Nitrite Urine Bilirubin Urine Urobilinogen Ur Leukocyte Esterase Urine WBC (Auto) Urine RBC (Auto) Ur Epithelial Cells Urine Bacteria Urine Mucus RPR Titer HIV 1&2 Antibody Screen HIV P24 Antigen Labs noted Assessment: 02/14/17 16:58 Withdrawal symptoms Plan: Continue detox
[2017-02-14] MEDS: chlordiazePOXIDE HCL 10 MG CAPSULE PO SCH ×2 (17:44→22:40)
[2017-02-14] MEDS: QUEtiapine FUMARATE 200 MG TABLET PO SCH (22:40)
[2017-02-14] MEDS: THIAMINE HCL 100 MG TABLET (FP) PO SCH (22:40)
[2017-02-15] MEDS: chlordiazePOXIDE HCL 10 MG CAPSULE PO SCH ×2 (06:14→10:36)
[2017-02-15 09:38] VITALS: BP 112/81; PULSE 93; TEMP 96.6
[2017-02-15] MEDS: PRENATAL VITAMINS W/ FOLIC ACID TABLET (FP) PO SCH (10:34)
[2017-02-15] MEDS: BACITRACIN 0.9 GM PACKET TP SCH (10:34)
[2017-02-15] MEDS: SERTRALINE HCL 50 MG TABLET (FP) PO SCH (10:34)
[2017-02-15] MEDS: NICOTINE 21 MG/24 HOURS TOPICAL PATCH TD SCH (10:34)
--- NOTE | 2017-02-15 14:19 | DS ---
[facility] Detox Discharge Summary Admission Date: 02/11/17 Discharge Date: 02/15/17 - History Present History: Alcohol Dependence - Physical Exam Results Vital Signs: Vital Signs Temperature 96.6 F L 02/15/17 09:38 Pulse Rate 93 H 02/15/17 09:38 Respiratory Rate 18 02/15/17 09:38 Blood Pressure 112/81 02/15/17 09:38 O2 Sat by Pulse Oximetry (%) - Medication Discharge Medications: Ambulatory Orders Sertraline HCl [Zoloft -] 100 mg PO DAILY #30 tablet 06/22/15 Quetiapine Fumarate [Seroquel -] 400 mg PO HS #30 tab 05/04/16 Quetiapine Fumarate [Seroquel -] 200 mg PO HS #30 tab 02/11/17 Sertraline HCl [Zoloft] 100 mg PO DAILY #30 tablet 02/11/17
--- NOTE | 2017-02-15 16:32 | DS ---
[facility] Detox Discharge Summary Admission Date: 02/11/17 Discharge Date: 02/15/17 - History Present History: Alcohol Dependence Additional Comments: DETOX COMPLETED. ALERT O X 3. NAD. PT REFERRED TO REHAB TODAY. Pertinent Past History: ARTHRITIS HYPERLIPIDEMIA - Physical Exam Results Vital Signs: Vital Signs Temperature 96.6 F L 02/15/17 09:38 Pulse Rate 93 H 02/15/17 09:38 Respiratory Rate 18 02/15/17 09:38 Blood Pressure 112/81 02/15/17 09:38 O2 Sat by Pulse Oximetry (%) Pertinent Admission Physical Exam Findings: WITHDRAWAL SX Laboratory Last Values WBC 7.9 K/mm3 (4.0-10.0) 02/12/17 06:00 RBC 4.16 M/mm3 (4.00-5.60) 02/12/17 06:00 Hgb 14.2 GM/dL (11.7-16.9) D 02/12/17 06:00 Hct 41.8 % (35.4-49) 02/12/17 06:00 MCV 100.5 fl (80-96) H 02/12/17 06:00 MCH 34.2 pg (25.7-33.7) H 02/12/17 06:00 MCHC 34.0 g/dl (32.0-35.9) 02/12/17 06:00 RDW 13.1 % (11.9-15.9) 02/12/17 06:00 Plt Count 197 K/MM3 (134-434) D 02/12/17 06:00 MPV 8.6 fl (7.5-11.1) 02/12/17 06:00 Sodium 135 mmol/L (136-145) L 02/12/17 06:00 Potassium 4.2 mmol/L (3.5-5.1) 02/12/17 06:00 Chloride 98 mmol/L (98-107) 02/12/17 06:00 Carbon Dioxide 26 mmol/L (21-32) 02/12/17 06:00 Anion Gap 11 (8-16) 02/12/17 06:00 BUN 9 mg/dL (7-18) D 02/12/17 06:00 Creatinine 0.9 mg/dL (0.7-1.3) D 02/12/17 06:00 Creat Clearance w eGFR > 60 (>60) 02/12/17 06:00 POC Glucometer 109 UNITS (80-120) 02/14/17 05:56 Random Glucose 152 mg/dL (74-106) H D 02/12/17 06:00 Calcium 9.2 mg/dL (8.5-10.1) 02/12/17 06:00 Total Bilirubin 0.8 mg/dL (0.2-1.0) 02/12/17 06:00 AST 34 U/L (15-37) D 02/12/17 06:00 ALT 34 U/L (12-78) D 02/12/17 06:00 Alkaline Phosphatase 89 U/L (45-117) D 02/12/17 06:00 Total Protein 8.1 g/dl (6.4-8.2) 02/12/17 06:00 Albumin 4.2 g/dl (3.4-5.0) 02/12/17 06:00 Urine Color Yellow 02/11/17 15:15 Urine Appearance Slcloudy 02/11/17 15:15 Urine pH 6.0 (5.0-8.0) 02/11/17 15:15 Ur Specific [place] 1.011 (1.001-1.035) 02/11/17 15:15 Urine Protein Negative (NEGATIVE) 02/11/17 15:15 Urine Glucose (UA) Negative (NEGATIVE) 02/11/17 15:15 Urine Ketones 1+ (NEGATIVE) H 02/11/17 15:15 Urine Blood Negative (NEGATIVE) 02/11/17 15:15 Urine Nitrite Negative (NEGATIVE) 02/11/17 15:15 Urine Bilirubin Negative (NEGATIVE) 02/11/17 15:15 Urine Urobilinogen 2.0 mg/dL (0.2-1.0) 02/11/17 15:15 Ur Leukocyte Esterase Trace (NEGATIVE) H 02/11/17 15:15 Urine WBC (Auto) 2 /hpf (3-5) 02/11/17 15:15 Urine RBC (Auto) 1 /hpf (0-3) 02/11/17 15:15 Ur Epithelial Cells Rare /HPF (FEW) 02/11/17 15:15 Urine Bacteria Many /hpf (NONE SEEN) 02/11/17 15:15 Urine Mucus Rare 02/11/17 15:15 RPR Titer Nonreactive (NONREACTIVE) 02/12/17 06:00 HIV 1&2 Antibody Screen Negative 02/11/17 12:20 HIV P24 Antigen Negative 02/11/17 12:20 - Treatment Hospital Course: Detox Protocol Followed, Detoxed Safely, Responded well, Discharged Condition Good, Rehab Referral Accepted Patient has Accepted a Rehab Referral to: [facility] [place] - Medication Discharge Medications: Ambulatory Orders Sertraline HCl [Zoloft -] 100 mg PO DAILY #30 tablet 06/22/15 Quetiapine Fumarate [Seroquel -] 400 mg PO HS #30 tab 05/04/16 Quetiapine Fumarate [Seroquel -] 200 mg PO HS #30 tab 02/11/17 Sertraline HCl [Zoloft] 100 mg PO DAILY #30 tablet 02/11/17 - Diagnosis (1) Alcohol dependence with withdrawal, uncomplicated Status: Acute (2) Arthritis Status: Chronic (3) Hyperlipidemia Status: Chronic Qualifiers: Hyperlipidemia type: pure hypercholesterolemia Qualified Code(s): E78.00 - Pure hypercholesterolemia, unspecified; E78.0 - Pure hypercholesterolemia (4) Nicotine dependence Status: Chronic Qualifiers: Nicotine product type: cigarettes Substance use status: uncomplicated Qualified Code(s): F17.210 - Nicotine dependence, cigarettes, uncomplicated (5) Seizure Status: Suspected Qualifiers: (6) Facial abrasion Status: Acute Qualifiers: Encounter type: initial encounter Qualified Code(s): S00.81XA - Abrasion of other part of head, initial encounter (7) Shoulder abrasion Status: Acute Qualifiers: Encounter type: initial encounter Laterality: left Qualified Code(s): S40.212A - Abrasion of left shoulder, initial encounter - AMA Did Patient Leave Against Medical Advice: No
== END 2017-02-15 13:58 | disposition other institution (70) | DRG 775 ==
LOC: YASAS 08:44 → Y3N 12:24
PROVIDERS: ADMIT Internal Medicine; ATTEND Internal Medicine
PROC: HZ2ZZZZ Detoxification Services for Substance Abuse Treatment (ICD-10-PCS; principal; 2017-02-11)
DX: F10.230 Alcohol dependence with withdrawal, uncomplicated (principal); F32.9 Major depressive disorder, single episode, unspecified; F19.24 Other psychoactive substance dependence with psychoactive substance-induced mood disorder; F31.81 Bipolar II disorder; F19.282 Other psychoactive substance dependence with psychoactive substance-induced sleep disorder; F41.8 Other specified anxiety disorders; S40.212A Abrasion of left shoulder, initial encounter; S00.81XA Abrasion of other part of head, initial encounter; M12.9 Arthropathy, unspecified
CPT/HCPCS: 36415; 80053; 81003; 81015; 85027; 86593; 87389; 93005; 93010

== ENCOUNTER 2017-02-15 15:10 | Inpatient (IN) | payer OTHER ==
[2017-02-15] MEDS ORDERED: LOPERAMIDE HCL 2 MG CAPSULE PO PRN (16:34)
[2017-02-15] MEDS ORDERED: MENTHOL/PHENOL 1 EACH UD MM PRN (16:34)
[2017-02-15] MEDS ORDERED: guaiFENesin/D-METHORPHAN HB 10 ML UNIT-DOSE CUPS PO PRN (16:34)
[2017-02-15] MEDS ORDERED: ACETAMINOPHEN 325 MG TABLET (FP) PO PRN (16:34)
[2017-02-15] MEDS ORDERED: MAGNESIUM HYDROX 2400MG/30ML ORAL SUSPENSION 30 ML CUP PO PRN (16:34)
[2017-02-15] MEDS ORDERED: MAG HYDROX/AL HYDROX/SIMETH 30 ML UNIT-DOSE CUP PO PRN (16:34)
[2017-02-15] MEDS ORDERED: MAGNESIUM CITRATE 300 ML BOTTLE PO PRN (16:34)
[2017-02-15] MEDS ORDERED: IBUPROFEN 400 MG TABLET (FP) PO PRN (16:34)
[2017-02-15] MEDS ORDERED: P-EPHED 60MG/TRIPROLIDI 2.5MG TABLET PO PRN (16:34)
[2017-02-15] MEDS ORDERED: NICOTINE POLACRILEX 2 MG GUM BUC PRN (16:34)
--- NOTE | 2017-02-15 16:37 | HP ---
[facility] Rehab Assess/Revision - Admission History Admitted to Rehab from: [address] Date of Admission to Rehab: 02/15/17 - Vital signs Vital Signs: Vital Signs Period Temp Pulse Resp BP Sys/Isaacs Pulse Ox Last 24 Hr 98.2 F 92 20 104/70 - Findings Detox History & Physical reviewed: Yes Concur with findings: Yes Comments/Additional Findings: PT ADMITTED TO [address] [place] [address] TODAY FOR REHAB. Inpatient Rehab Admission - Initial Determination Are CD services needed?: Yes Free of communicable disease: Yes Not in need of hospitalization: Yes - Rehab Admission Criteria Patient is meeting Inpatient Rehab admission criteria:: Yes
[2017-02-15] MEDS: NICOTINE 14 MG/24 HOURS TOPICAL PATCH TD SCH (20:23)
[2017-02-15 20:52] VITALS: BMI 30.7
--- NOTE | 2017-02-15 21:30 | PN ---
[facility] Progress Note Note: Psychiatry Attending on-call's note : Called to enter orders for seroquel and sertraline. 46 y/o male transferred today to [address] [place] [address]. From [address] [place] [address].Chart reviewed.Medications revisited. Reconciled.Progress notes : appreciated. Intervention : Seroquel 200 mg po hs Zoloft 100 mg po daily Orders entered.Continuity of care.
[2017-02-15] MEDS: QUEtiapine FUMARATE 200 MG TABLET PO SCH (21:31)
[2017-02-15] MEDS: THIAMINE HCL 100 MG TABLET (FP) PO SCH (21:31)
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
[2017-02-16] MEDS: SERTRALINE HCL 50 MG TABLET (FP) PO SCH (10:00)
[2017-02-16] MEDS: PRENATAL VITAMINS W/ FOLIC ACID TABLET (FP) PO SCH (10:00)
[2017-02-16] MEDS: NICOTINE 14 MG/24 HOURS TOPICAL PATCH TD SCH (10:01)
[2017-02-16] MEDS ORDERED: PNEUMOCOCCAL 23 VACCINE 0.5 ML VIAL IM ONE (12:00)
[2017-02-16] MEDS ORDERED: PNEUMOC 13-VAL CONJ-DIP CRM/PF 0.5 ML DISP.SYRIN IM ONE (12:00)
--- NOTE | 2017-02-16 14:43 | PN ---
[facility] Progress Note (SOAP) Subjective: pain left shoulder x1.5 weeks Objective: 02/16/17 14:42 Vital Signs - 24 hr 02/15/17 02/16/17 02/16/17 16:09 03:43 06:42 Temperature 98.2 F 98.1 F Pulse Rate 92 H 92 H Respiratory 20 18 18 Rate Blood Pressure 104/70 101/59 Laboratory Tests 02/16/17 06:17 POC Glucometer 87 labs reviewed from admission, tender on palpationleft shoulder muculatrue aroundscapula, no erythema full rom Assessment: 02/16/17 14:43 muscle strain/pain - naprosyn atc w protonix, flexeril neurontin
[2017-02-16] MEDS: METHYL SALICYLATE/MENTHOL OINT 30 GM TUBE TP SCH (15:38)
[2017-02-16] MEDS: GABAPENTIN 100 MG CAPSULE (FP) PO SCH ×2 (15:41→21:32)
[2017-02-16] MEDS: CYCLOBENZAPRINE HCL 10 MG TABLET (FP) PO SCH ×2 (15:41→21:32)
[2017-02-16] MEDS: PANTOPRAZOLE 40 MG TABLET (FP) PO SCH (15:41)
[2017-02-16] MEDS: THIAMINE HCL 100 MG TABLET (FP) PO SCH (21:32)
[2017-02-16] MEDS: QUEtiapine FUMARATE 200 MG TABLET PO SCH (21:32)
[2017-02-16] MEDS: NAPROXEN 500 MG TABLET (FP) PO SCH (21:33)
[2017-02-17] MEDS: CYCLOBENZAPRINE HCL 10 MG TABLET (FP) PO SCH ×3 (06:34→21:20)
[2017-02-17] MEDS: GABAPENTIN 100 MG CAPSULE (FP) PO SCH ×3 (06:34→21:20)
[2017-02-17] MEDS: SERTRALINE HCL 50 MG TABLET (FP) PO SCH (09:58)
[2017-02-17] MEDS: PANTOPRAZOLE 40 MG TABLET (FP) PO SCH (09:58)
[2017-02-17] MEDS: METHYL SALICYLATE/MENTHOL OINT 30 GM TUBE TP SCH (09:58)
[2017-02-17] MEDS: PRENATAL VITAMINS W/ FOLIC ACID TABLET (FP) PO SCH (09:58)
[2017-02-17] MEDS: NAPROXEN 500 MG TABLET (FP) PO SCH ×2 (09:58→21:20)
[2017-02-17] MEDS: NICOTINE 14 MG/24 HOURS TOPICAL PATCH TD SCH (09:59)
[2017-02-17] MEDS: QUEtiapine FUMARATE 200 MG TABLET PO SCH (21:20)
[2017-02-17] MEDS: THIAMINE HCL 100 MG TABLET (FP) PO SCH (21:20)
[2017-02-18] MEDS: GABAPENTIN 100 MG CAPSULE (FP) PO SCH ×3 (06:28→21:22)
[2017-02-18] MEDS: CYCLOBENZAPRINE HCL 10 MG TABLET (FP) PO SCH ×3 (06:28→21:22)
[2017-02-18] MEDS: METHYL SALICYLATE/MENTHOL OINT 30 GM TUBE TP SCH (09:54)
[2017-02-18] MEDS: PRENATAL VITAMINS W/ FOLIC ACID TABLET (FP) PO SCH (09:55)
[2017-02-18] MEDS: PANTOPRAZOLE 40 MG TABLET (FP) PO SCH (09:55)
[2017-02-18] MEDS: SERTRALINE HCL 50 MG TABLET (FP) PO SCH (09:55)
[2017-02-18] MEDS: NAPROXEN 500 MG TABLET (FP) PO SCH ×2 (09:55→21:22)
[2017-02-18] MEDS: NICOTINE 14 MG/24 HOURS TOPICAL PATCH TD SCH (09:56)
[2017-02-18] MEDS: THIAMINE HCL 100 MG TABLET (FP) PO SCH (21:22)
[2017-02-18] MEDS: QUEtiapine FUMARATE 200 MG TABLET PO SCH (21:22)
[2017-02-19] MEDS: CYCLOBENZAPRINE HCL 10 MG TABLET (FP) PO SCH ×3 (06:42→21:33)
[2017-02-19] MEDS: GABAPENTIN 100 MG CAPSULE (FP) PO SCH ×3 (06:42→21:33)
[2017-02-19] MEDS: PANTOPRAZOLE 40 MG TABLET (FP) PO SCH (09:36)
[2017-02-19] MEDS: PRENATAL VITAMINS W/ FOLIC ACID TABLET (FP) PO SCH (09:36)
[2017-02-19] MEDS: NAPROXEN 500 MG TABLET (FP) PO SCH ×2 (09:36→21:33)
[2017-02-19] MEDS: SERTRALINE HCL 50 MG TABLET (FP) PO SCH (09:36)
[2017-02-19] MEDS: NICOTINE 14 MG/24 HOURS TOPICAL PATCH TD SCH (09:37)
[2017-02-19] MEDS: METHYL SALICYLATE/MENTHOL OINT 30 GM TUBE TP SCH (09:37)
[2017-02-19] MEDS: THIAMINE HCL 100 MG TABLET (FP) PO SCH (21:33)
[2017-02-19] MEDS: QUEtiapine FUMARATE 200 MG TABLET PO SCH (21:33)
[2017-02-20] MEDS: GABAPENTIN 100 MG CAPSULE (FP) PO SCH ×3 (06:06→21:17)
[2017-02-20] MEDS: CYCLOBENZAPRINE HCL 10 MG TABLET (FP) PO SCH ×3 (06:06→21:17)
[2017-02-20] MEDS: SERTRALINE HCL 50 MG TABLET (FP) PO SCH (09:36)
[2017-02-20] MEDS: NAPROXEN 500 MG TABLET (FP) PO SCH ×2 (09:36→21:17)
[2017-02-20] MEDS: PANTOPRAZOLE 40 MG TABLET (FP) PO SCH (09:36)
[2017-02-20] MEDS: PRENATAL VITAMINS W/ FOLIC ACID TABLET (FP) PO SCH (09:36)
[2017-02-20] MEDS: METHYL SALICYLATE/MENTHOL OINT 30 GM TUBE TP SCH (09:36)
[2017-02-20] MEDS: NICOTINE 14 MG/24 HOURS TOPICAL PATCH TD SCH (09:36)
[2017-02-20] MEDS: QUEtiapine FUMARATE 200 MG TABLET PO SCH (21:16)
[2017-02-20] MEDS: THIAMINE HCL 100 MG TABLET (FP) PO SCH (21:17)
[2017-02-21] MEDS: GABAPENTIN 100 MG CAPSULE (FP) PO SCH ×3 (06:31→21:13)
[2017-02-21] MEDS: CYCLOBENZAPRINE HCL 10 MG TABLET (FP) PO SCH ×3 (06:31→21:13)
[2017-02-21] MEDS: NICOTINE 14 MG/24 HOURS TOPICAL PATCH TD SCH (09:42)
[2017-02-21] MEDS: PRENATAL VITAMINS W/ FOLIC ACID TABLET (FP) PO SCH (09:42)
[2017-02-21] MEDS: PANTOPRAZOLE 40 MG TABLET (FP) PO SCH (09:42)
[2017-02-21] MEDS: METHYL SALICYLATE/MENTHOL OINT 30 GM TUBE TP SCH (09:42)
[2017-02-21] MEDS: NAPROXEN 500 MG TABLET (FP) PO SCH ×2 (09:42→21:14)
[2017-02-21] MEDS: SERTRALINE HCL 50 MG TABLET (FP) PO SCH (09:42)
[2017-02-21] MEDS: QUEtiapine FUMARATE 200 MG TABLET PO SCH (21:14)
[2017-02-21] MEDS: THIAMINE HCL 100 MG TABLET (FP) PO SCH (21:14)
[2017-02-22] MEDS: CYCLOBENZAPRINE HCL 10 MG TABLET (FP) PO SCH ×3 (06:24→21:13)
[2017-02-22] MEDS: GABAPENTIN 100 MG CAPSULE (FP) PO SCH ×3 (06:24→21:13)
[2017-02-22] MEDS: SERTRALINE HCL 50 MG TABLET (FP) PO SCH (10:02)
[2017-02-22] MEDS: PRENATAL VITAMINS W/ FOLIC ACID TABLET (FP) PO SCH (10:02)
[2017-02-22] MEDS: PANTOPRAZOLE 40 MG TABLET (FP) PO SCH (10:02)
[2017-02-22] MEDS: METHYL SALICYLATE/MENTHOL OINT 30 GM TUBE TP SCH (10:02)
[2017-02-22] MEDS: NICOTINE 14 MG/24 HOURS TOPICAL PATCH TD SCH (10:02)
[2017-02-22] MEDS: NAPROXEN 500 MG TABLET (FP) PO SCH ×2 (10:31→21:13)
[2017-02-22] MEDS: THIAMINE HCL 100 MG TABLET (FP) PO SCH (21:13)
[2017-02-22] MEDS: QUEtiapine FUMARATE 200 MG TABLET PO SCH (21:13)
[2017-02-23] MEDS: CYCLOBENZAPRINE HCL 10 MG TABLET (FP) PO SCH ×3 (06:08→21:08)
[2017-02-23] MEDS: GABAPENTIN 100 MG CAPSULE (FP) PO SCH (06:08)
[2017-02-23] MEDS: PRENATAL VITAMINS W/ FOLIC ACID TABLET (FP) PO SCH (09:37)
[2017-02-23] MEDS: NICOTINE 14 MG/24 HOURS TOPICAL PATCH TD SCH (09:37)
[2017-02-23] MEDS: METHYL SALICYLATE/MENTHOL OINT 30 GM TUBE TP SCH (09:37)
[2017-02-23] MEDS: SERTRALINE HCL 50 MG TABLET (FP) PO SCH (09:37)
[2017-02-23] MEDS: PANTOPRAZOLE 40 MG TABLET (FP) PO SCH (09:37)
[2017-02-23] MEDS: NAPROXEN 500 MG TABLET (FP) PO SCH ×2 (09:37→21:08)
--- NOTE | 2017-02-23 11:48 | PN ---
[facility] Progress Note (SOAP) Subjective: c/o increased shoulder and back pain not responsive to current analgesic medications. Objective: 02/23/17 11:47 Vital Signs - 24 hr 02/23/17 02/23/17 02/23/17 00:30 03:30 06:24 Temperature 97.9 F Pulse Rate 83 Respiratory 16 16 18 Rate Blood Pressure 104/75 Laboratory Tests 02/16/17 02/16/17 02/17/17 06:17 16:38 06:34 POC Glucometer 87 95 92 chest clear, muscel tender on palpation left shoulder and back around scapula, labs reviewed Assessment: 02/23/17 11:48 musculoskeletal chest /shoulder/back pain - will increase neurontin, start elavil, lidoderm patch, patient erassured.
[2017-02-23] MEDS: GABAPENTIN 300 MG CAPSULE (FP) PO SCH ×2 (14:18→21:08)
[2017-02-23] MEDS: LIDOCAINE 5% TOPICAL PATCH TP SCH (14:18)
[2017-02-23] MEDS: AMMONIUM LACTATE 12% LOTION 225 GM BOTTLE TP PRN (14:19)
[2017-02-23] MEDS: THIAMINE HCL 100 MG TABLET (FP) PO SCH (21:08)
[2017-02-23] MEDS: LIDOCAINE PATCH REMOVAL MC SCH (21:08)
[2017-02-23] MEDS: QUEtiapine FUMARATE 200 MG TABLET PO SCH (21:08)
[2017-02-23] MEDS: AMITRIPTYLINE HCL 25 MG TABLET (FP) PO SCH (21:08)
[2017-02-24] MEDS: CYCLOBENZAPRINE HCL 10 MG TABLET (FP) PO SCH ×3 (06:22→21:13)
[2017-02-24] MEDS: GABAPENTIN 300 MG CAPSULE (FP) PO SCH ×3 (06:22→21:13)
[2017-02-24] MEDS: METHYL SALICYLATE/MENTHOL OINT 30 GM TUBE TP SCH (10:09)
[2017-02-24] MEDS: NICOTINE 14 MG/24 HOURS TOPICAL PATCH TD SCH (10:10)
[2017-02-24] MEDS: SERTRALINE HCL 50 MG TABLET (FP) PO SCH (10:10)
[2017-02-24] MEDS: PRENATAL VITAMINS W/ FOLIC ACID TABLET (FP) PO SCH (10:10)
[2017-02-24] MEDS: NAPROXEN 500 MG TABLET (FP) PO SCH ×2 (10:10→21:13)
[2017-02-24] MEDS: PANTOPRAZOLE 40 MG TABLET (FP) PO SCH (10:10)
[2017-02-24] MEDS: LIDOCAINE 5% TOPICAL PATCH TP SCH (10:10)
[2017-02-24] MEDS: QUEtiapine FUMARATE 200 MG TABLET PO SCH (21:13)
[2017-02-24] MEDS: AMITRIPTYLINE HCL 25 MG TABLET (FP) PO SCH (21:13)
[2017-02-24] MEDS: THIAMINE HCL 100 MG TABLET (FP) PO SCH (21:13)
[2017-02-24] MEDS: LIDOCAINE PATCH REMOVAL MC SCH (21:14)
[2017-02-25] MEDS: CYCLOBENZAPRINE HCL 10 MG TABLET (FP) PO SCH ×3 (06:36→21:38)
[2017-02-25] MEDS: GABAPENTIN 300 MG CAPSULE (FP) PO SCH ×3 (06:36→21:38)
[2017-02-25] MEDS: PRENATAL VITAMINS W/ FOLIC ACID TABLET (FP) PO SCH (09:55)
[2017-02-25] MEDS: NAPROXEN 500 MG TABLET (FP) PO SCH ×2 (09:55→21:38)
[2017-02-25] MEDS: SERTRALINE HCL 50 MG TABLET (FP) PO SCH (09:55)
[2017-02-25] MEDS: LIDOCAINE 5% TOPICAL PATCH TP SCH (09:55)
[2017-02-25] MEDS: NICOTINE 14 MG/24 HOURS TOPICAL PATCH TD SCH (09:55)
[2017-02-25] MEDS: METHYL SALICYLATE/MENTHOL OINT 30 GM TUBE TP SCH (09:55)
[2017-02-25] MEDS: PANTOPRAZOLE 40 MG TABLET (FP) PO SCH (09:56)
[2017-02-25] MEDS: AMITRIPTYLINE HCL 25 MG TABLET (FP) PO SCH (21:38)
[2017-02-25] MEDS: THIAMINE HCL 100 MG TABLET (FP) PO SCH (21:38)
[2017-02-25] MEDS: LIDOCAINE PATCH REMOVAL MC SCH (21:38)
[2017-02-25] MEDS: QUEtiapine FUMARATE 200 MG TABLET PO SCH (21:38)
[2017-02-26] MEDS: GABAPENTIN 300 MG CAPSULE (FP) PO SCH ×3 (06:09→21:17)
[2017-02-26] MEDS: CYCLOBENZAPRINE HCL 10 MG TABLET (FP) PO SCH ×3 (06:09→21:17)
[2017-02-26] MEDS: SERTRALINE HCL 50 MG TABLET (FP) PO SCH (09:52)
[2017-02-26] MEDS: NICOTINE 14 MG/24 HOURS TOPICAL PATCH TD SCH (09:52)
[2017-02-26] MEDS: METHYL SALICYLATE/MENTHOL OINT 30 GM TUBE TP SCH (09:52)
[2017-02-26] MEDS: PRENATAL VITAMINS W/ FOLIC ACID TABLET (FP) PO SCH (09:52)
[2017-02-26] MEDS: PANTOPRAZOLE 40 MG TABLET (FP) PO SCH (09:52)
[2017-02-26] MEDS: LIDOCAINE 5% TOPICAL PATCH TP SCH (09:52)
[2017-02-26] MEDS: NAPROXEN 500 MG TABLET (FP) PO SCH ×2 (09:52→21:17)
[2017-02-26] MEDS: THIAMINE HCL 100 MG TABLET (FP) PO SCH (21:17)
[2017-02-26] MEDS: AMITRIPTYLINE HCL 25 MG TABLET (FP) PO SCH (21:17)
[2017-02-26] MEDS: LIDOCAINE PATCH REMOVAL MC SCH (21:17)
[2017-02-26] MEDS: QUEtiapine FUMARATE 200 MG TABLET PO SCH (21:17)
[2017-02-27] MEDS: GABAPENTIN 300 MG CAPSULE (FP) PO SCH ×3 (06:20→21:10)
[2017-02-27] MEDS: CYCLOBENZAPRINE HCL 10 MG TABLET (FP) PO SCH ×3 (06:20→21:10)
[2017-02-27] MEDS: AMMONIUM LACTATE 12% LOTION 225 GM BOTTLE TP PRN (09:56)
[2017-02-27] MEDS: PRENATAL VITAMINS W/ FOLIC ACID TABLET (FP) PO SCH (09:57)
[2017-02-27] MEDS: SERTRALINE HCL 50 MG TABLET (FP) PO SCH (09:57)
[2017-02-27] MEDS: NAPROXEN 500 MG TABLET (FP) PO SCH ×2 (09:57→21:10)
[2017-02-27] MEDS: LIDOCAINE 5% TOPICAL PATCH TP SCH (09:57)
[2017-02-27] MEDS: METHYL SALICYLATE/MENTHOL OINT 30 GM TUBE TP SCH (09:58)
[2017-02-27] MEDS: PANTOPRAZOLE 40 MG TABLET (FP) PO SCH (09:58)
[2017-02-27] MEDS: NICOTINE 14 MG/24 HOURS TOPICAL PATCH TD SCH (09:58)
[2017-02-27] MEDS: AMITRIPTYLINE HCL 25 MG TABLET (FP) PO SCH (21:10)
[2017-02-27] MEDS: THIAMINE HCL 100 MG TABLET (FP) PO SCH (21:10)
[2017-02-27] MEDS: QUEtiapine FUMARATE 200 MG TABLET PO SCH (21:10)
[2017-02-27] MEDS: LIDOCAINE PATCH REMOVAL MC SCH (21:11)
[2017-02-28] MEDS: CYCLOBENZAPRINE HCL 10 MG TABLET (FP) PO SCH ×3 (06:33→21:13)
[2017-02-28] MEDS: GABAPENTIN 300 MG CAPSULE (FP) PO SCH ×3 (06:33→21:13)
[2017-02-28] MEDS: PANTOPRAZOLE 40 MG TABLET (FP) PO SCH (09:36)
[2017-02-28] MEDS: PRENATAL VITAMINS W/ FOLIC ACID TABLET (FP) PO SCH (09:37)
[2017-02-28] MEDS: NAPROXEN 500 MG TABLET (FP) PO SCH ×2 (09:37→21:13)
[2017-02-28] MEDS: SERTRALINE HCL 50 MG TABLET (FP) PO SCH (09:37)
[2017-02-28] MEDS: NICOTINE 14 MG/24 HOURS TOPICAL PATCH TD SCH (09:37)
[2017-02-28] MEDS: METHYL SALICYLATE/MENTHOL OINT 30 GM TUBE TP SCH (09:37)
[2017-02-28] MEDS: LIDOCAINE 5% TOPICAL PATCH TP SCH (09:37)
[2017-02-28] MEDS ORDERED: INSULIN (NOVOLOG) ASPART 100 UNITS/ML 10ML VIAL ONE (12:07)
[2017-02-28] MEDS: LIDOCAINE PATCH REMOVAL MC SCH (21:13)
[2017-02-28] MEDS: THIAMINE HCL 100 MG TABLET (FP) PO SCH (21:13)
[2017-02-28] MEDS: QUEtiapine FUMARATE 200 MG TABLET PO SCH (21:13)
[2017-02-28] MEDS: AMITRIPTYLINE HCL 25 MG TABLET (FP) PO SCH (21:13)
[2017-03-01] MEDS: CYCLOBENZAPRINE HCL 10 MG TABLET (FP) PO SCH ×3 (07:03→21:17)
[2017-03-01] MEDS: GABAPENTIN 300 MG CAPSULE (FP) PO SCH ×3 (07:03→21:17)
[2017-03-01] MEDS: SERTRALINE HCL 50 MG TABLET (FP) PO SCH (10:09)
[2017-03-01] MEDS: METHYL SALICYLATE/MENTHOL OINT 30 GM TUBE TP SCH (10:10)
[2017-03-01] MEDS: LIDOCAINE 5% TOPICAL PATCH TP SCH (10:10)
[2017-03-01] MEDS: PANTOPRAZOLE 40 MG TABLET (FP) PO SCH (10:10)
[2017-03-01] MEDS: PRENATAL VITAMINS W/ FOLIC ACID TABLET (FP) PO SCH (10:10)
[2017-03-01] MEDS: NAPROXEN 500 MG TABLET (FP) PO SCH ×2 (10:10→21:17)
[2017-03-01] MEDS: NICOTINE 14 MG/24 HOURS TOPICAL PATCH TD SCH (10:10)
[2017-03-01] MEDS: AMITRIPTYLINE HCL 25 MG TABLET (FP) PO SCH (21:17)
[2017-03-01] MEDS: QUEtiapine FUMARATE 200 MG TABLET PO SCH (21:17)
[2017-03-01] MEDS: THIAMINE HCL 100 MG TABLET (FP) PO SCH (21:17)
[2017-03-01] MEDS: LIDOCAINE PATCH REMOVAL MC SCH (21:18)
[2017-03-02] MEDS: GABAPENTIN 300 MG CAPSULE (FP) PO SCH (06:28)
[2017-03-02] MEDS: CYCLOBENZAPRINE HCL 10 MG TABLET (FP) PO SCH (06:28)
[2017-03-02 06:38] VITALS: BP 112/77; PULSE 79; TEMP 97.2
[2017-03-02] MEDS: METHYL SALICYLATE/MENTHOL OINT 30 GM TUBE TP SCH (10:00)
[2017-03-02] MEDS: PANTOPRAZOLE 40 MG TABLET (FP) PO SCH (10:00)
[2017-03-02] MEDS: SERTRALINE HCL 50 MG TABLET (FP) PO SCH (10:00)
[2017-03-02] MEDS: NAPROXEN 500 MG TABLET (FP) PO SCH (10:00)
[2017-03-02] MEDS: PRENATAL VITAMINS W/ FOLIC ACID TABLET (FP) PO SCH (10:00)
[2017-03-02] MEDS: LIDOCAINE 5% TOPICAL PATCH TP SCH (10:01)
[2017-03-02] MEDS: NICOTINE 14 MG/24 HOURS TOPICAL PATCH TD SCH (10:01)
--- NOTE | 2017-03-02 11:10 | PN ---
Psychiatric Progress Note Vital Signs: Vital Signs Period Temp Pulse Resp BP Sys/Isaacs Pulse Ox Last 24 Hr 97.2 F 79 16-18 112/77 Date of Session: 03/02/17 Chief Complaint:: discharge visit HPI: Patient has addressed alcohol, nicotine dependence comorbid Bipolar I disorder. ROS: WNL Current Medications: Active Medications Generic Name Dose Route Start Last Admin Trade Name Freq PRN Reason Stop Dose Admin Acetaminophen 650 mg 02/15/17 16:34 Tylenol - PO Q4H PRN FEVER OR PAIN Al Hydroxide/Mg Hydroxide 30 ml 02/15/17 16:34 Mylanta Oral Suspension - PO Q6H PRN DYSPEPSIA Amitriptyline HCl 25 mg 02/23/17 22:00 03/01/17 21:17 Elavil - PO 25 mg HS SCOTT Administration Cyclobenzaprine HCl 10 mg 02/16/17 15:27 03/02/17 06:28 Flexeril - PO 10 mg TID SCOTT Administration Eucalyptus/Menthol/Phenol/Sorbitol 1 each 02/15/17 16:34 Cepastat Lozenge - MM Q4H PRN SORE THROAT Gabapentin 300 mg 02/23/17 14:00 03/02/17 06:28 Neurontin - PO 300 mg TID SCOTT Administration Guaifenesin 10 ml 02/15/17 16:34 Robitussin Dm - PO Q6H PRN COUGH Lactic Acid 1 applic 02/23/17 11:49 02/27/17 09:56 Lac-Hydrin 12 TP 1 applic DAILY PRN Administration DRY SKIN Lidocaine 1 patch 02/23/17 13:00 03/02/17 10:01 Lidoderm Patch - TP Not Given DAILY SCOTT Loperamide HCl 4 mg 02/15/17 16:34 Imodium - PO Q6H PRN DIARRHEA Magnesium Citrate 300 ml 02/15/17 16:34 Citroma - PO Q48H PRN CONSTIPATION Magnesium Hydroxide 30 ml 02/15/17 16:34 Milk Of Magnesia - PO DAILY PRN CONSTIPATION Methyl Salicylate 1 applic 02/16/17 14:45 03/02/17 10:00 Rory-Cordova - TP Not Given DAILY SCOTT Miscellaneous 1 each 02/23/17 22:00 03/01/17 21:18 Lidoderm Patch Removal MC 1 each DAILY@2200 SCOTT Administration Naproxen 500 mg 02/16/17 22:00 12/26/17 10:00 Naprosyn - PO 500 mg BID SCOTT Administration Nicotine 14 mg 02/15/17 18:00 03/02/17 10:01 Nicoderm Patch - TD Not Given DAILY SCOTT Nicotine Polacrilex 2 mg 02/15/17 16:34 Nicorette Gum - BUC Q2H PRN NICOTINE REPLACEMENT RX Pantoprazole Sodium 40 mg 02/16/17 15:27 03/02/17 10:00 Protonix - PO 40 mg DAILY SCOTT Administration Multivit/Folic Acid/Iron 1 tab 02/16/17 10:00 03/02/17 10:00 Vitamins (Sjr) - PO 1 tab DAILY SCOTT Administration Pseudoephedrine/Triprolidine 1 combo 02/15/17 16:34 Actifed - PO TID PRN NASAL CONGESTION Quetiapine Fumarate 200 mg 02/15/17 22:00 03/01/17 21:17 Seroquel - PO 200 mg HS SCOTT Administration Sertraline HCl 100 mg 02/16/17 10:00 03/02/17 10:00 Zoloft - PO 100 mg DAILY SCOTT Administration Thiamine HCl 100 mg 02/15/17 22:00 03/01/17 21:17 Vitamin B1 - PO 100 mg HS SCOTT Administration Current Side Effect: No Lab tests ordered: No Lab tests reviewed: Yes Provider note:: Patient has completed today this program and met his goals, will contineu to address his issues at [facility] outpatient treatment program. He understands the negative consequences of his addiction and verbalized resolution to stay abstinent and aherent to every aspects of his aftercare plans, medications Seroquel and Zoloft well tolerated, no side- effects reported, scripts provided for 30 days, patient is stable for discharge today. Total face to face time:: 25 Mental Status Exam - Mental Status Exam Alert and Oriented to: Time, Place, Person Cognitive Function: Good Patient Appearance: Well Groomed Mood: Hopeful Affect: Appropriate, Mood Congruent Patient Behavior: Appropriate, Cooperative Speech Pattern: Clear, Appropriate Voice Loudness: Normal Thought Process: Intact, Goal Oriented Thought Disorder: Not Present Hallucinations: Denies Suicidal Ideation: Denies Homicidal Ideation: Denies Insight/Judgement: Fair Sleep: Fair Appetite: Fair Muscle strength/Tone: Normal Gait/Station: Normal Psychiatric Treatment Plan - Problem List (1) Alcohol dependence Current Visit: Yes (2) Bipolar 1 disorder Current Visit: No (3) Nicotine dependence Current Visit: No Qualifiers: Nicotine product type: cigarettes Substance use status: uncomplicated Qualified Code(s): F17.210 - Nicotine dependence, cigarettes, uncomplicated
== END 2017-03-02 11:40 | disposition home or self-care (01) | DRG 772 ==
LOC: YASAS 15:10 → Y5N 15:12
PROVIDERS: ADMIT Psychiatry & Neurology Psychiatry; ATTEND Psychiatry & Neurology Psychiatry
PROC: HZ42ZZZ Group Counseling for Substance Abuse Treatment, Cognitive-Behavioral (ICD-10-PCS; principal; 2017-02-15)
DX: F10.20 Alcohol dependence, uncomplicated (principal); F17.210 Nicotine dependence, cigarettes, uncomplicated; F31.89 Other bipolar disorder
CPT/HCPCS: 90732; G0009

== ENCOUNTER 2017-12-24 13:57 | Emergency (ER) | payer OTHER ==
[2017-12-24 14:58] VITALS: BP 135/86; PULSE 124; TEMP 98.8; BMI 30.7
--- NOTE | 2017-12-24 14:58 | PDOC ---
Rapid Medical Evaluation Chief Complaint: Alcohol intoxication Time Seen by Provider: 12/24/17 15:03 Medical Evaluation: Allergies Allergy/AdvReac Type Severity Reaction Status Date / Time No Known Allergies Allergy Verified 12/24/17 11:09 12/24/17 14:54 I have performed a brief in-person evaluation of this patient. The patient presents with a chief complaint of: Patient sent from [facility] for alcohol intoxication. Patient report drinking 5 bottles of vodka and few bottles Pertinent physical exam findings: Patient able to give hx and talking in full sentences . A&O x 3. I have ordered the following: CBC, CMP. Utox The patient will proceed to the ED for further evaluation. 12/24/17 15:03 Discharge Disposition - Diagnosis Alcohol intoxication Qualifiers: Complication of substance-induced condition: uncomplicated Qualified Code(s): F10.920 - Alcohol use, unspecified with intoxication, uncomplicated - Referrals - Patient Instructions - Post Discharge Activity
[2017-12-24 15:53] LABS: BASO % 0.8 % (0-2.0); EOS % 0.2 % (0-4.5); HEMOGLOBIN 14.1 GM/dL (11.7-16.9); LYMPH % 33.6 % (8-40); MCH 32.7 pg (25.7-33.7); MCHC 34.4 g/dl (32.0-35.9); MEAN CELL VOLUME 95.1 fl (80-96); MEAN PLT VOLUME 7.6 fl (7.5-11.1); MONO % 6.9 % (3.8-10.2); NEUT % 58.5 % (42.8-82.8); PLATELET COUNT 237 K/MM3 (134-434); RBC 4.31 M/mm3 (4.00-5.60)
[2017-12-24 15:56] LABS: COCAINE, UR NEGATIVE ng/ml (CUTOFF=300); METHADONE, UR NEGATIVE ng/ml (CUTOFF=300); OPIATES, URI NEGATIVE ng/ml (CUTOFF=300); PHENCYCLIDINE,URINE NEGATIVE ng/ml (CUTOFF=25); URINE AMPHETAMINES NEGATIVE ng/ml (CUTOFF=500); URINE BARBITURATES NEGATIVE ng/ml (CUTOFF=200); URINE BENZODIAZEPINES NEGATIVE ng/ml (CUTOFF=200)
[2017-12-24 16:16] LABS: ALBUMIN 4.1 g/dl (3.4-5.0); ALK PHOS 86 U/L (45-117); ANION GAP 9 MMOL/L (8-16); BILIRUBIN,TOTAL 0.7 mg/dL (0.2-1); BLOOD UREA NITROGEN 6 mg/dL (7-18); CALCIUM 8.8 mg/dL (8.5-10.1); CHLORIDE 107 mmol/L (98-107); CO2 26 mmol/L (21-32); CREATININE 0.6 mg/dL (0.55-1.3); GLUCOSE,RANDOM 102 mg/dL (74-106); POTASSIUM 3.6 mmol/L (3.5-5.1); SGOT/AST 66 U/L (15-37); SGPT/ALT 42 U/L (13-61); SODIUM 142 mmol/L (136-145); TOT PROT 7.4 g/dl (6.4-8.2)
--- NOTE | 2017-12-24 17:00 | PDOC ---
History of Present Illness - General Chief Complaint: Alcohol intoxication Stated Complaint: Alcohol intoxication Time Seen by Provider: 12/24/17 15:03 History Source: Patient Exam Limitations: No Limitations - History of Present Illness Initial Comments: 12/24/17 17:19 47-year-old male presents to ED for medical evaluation prior to going to [facility] for alcohol detox. Patient states went there to be admitted and was told secondary to unsteady gait and level of intoxication patient should he sent to the ER first. Patient states last alcoholic drink was this morning. Patient states drinks approximately vodka daily for numerous years. Patient is requesting rehabilitation Timing/Duration: unsure Severity: moderate Associated Symptoms: reports: denies symptoms Past History - Travel Traveled outside of the country in the last 30 days: No - Past Medical History Allergies/Adverse Reactions: Allergies Allergy/AdvReac Type Severity Reaction Status Date / Time No Known Allergies Allergy Verified 12/24/17 11:09 Home Medications: Ambulatory Orders Quetiapine Fumarate [Seroquel -] 200 mg PO HS 04/28/17 Sertraline HCl [Zoloft -] 100 mg PO DAILY 04/28/17 Anemia: No Asthma: No Cancer: No Cardiac Disorders: No CVA: Yes (2016) COPD: No CHF: No Dementia: No Diabetes: No GI Disorders: No Disorders: No HTN: No Hypercholesterolemia: Yes (NO MEDS) Kidney Stones: No Liver Disease: No Psychiatric Problems: Yes (bipolar) Seizures: No Thyroid Disease: No - Surgical History Abdominal Surgery: No Appendectomy: No Cardiac Surgery: No Cholecystectomy: No Lung Surgery: No Neurologic Surgery: No Orthopedic Surgery: No - Reproductive History Testicular Surgery: No - Immunization History Immunization Up to Date: No - Suicide/Smoking/Psychosocial Hx Smoking History: Current every day smoker Have you smoked in the past 12 months: No Number of Cigarettes Smoked Daily: 4 Cigars Per Day: 0 Information on smoking cessation initiated: No 'Breaking Loose' booklet given: 04/28/17 Hx Alcohol Use: Yes Drug/Substance Use Hx: No Substance Use Type: Alcohol Hx Substance Use Treatment: Yes Patient Lives Alone: No Lives with/in: spouse/SO Review of Systems - Review of Systems Able to Perform ROS?: No Constitutional: No: Symptoms Reported Respiratory: No: Symptoms reported Cardiac (ROS): No: Symptoms Reported ABD/GI: No: Symptoms Reported : No: Symptoms Reported Musculoskeletal: No: Symptoms Reported Integumentary: No: Symptoms Reported Neurological: No: Symptoms reported Endocrine: No: Symptoms Reported Hematologic/Lymphatic: No: Symptoms Reported *Physical Exam - Vital Signs Last Vital Signs Temp Pulse Resp BP Pulse Ox 98.8 F 124 H 18 135/86 100 12/24/17 14:54 12/24/17 14:54 12/24/17 14:54 12/24/17 14:54 12/24/17 14:54 - Physical Exam General Appearance: Yes: Nourished, Appropriately Dressed, Intoxicated. No: Apparent Distress HEENT: positive: Pharynx Normal (dry). negative: Pale Conjunctivae Respiratory/Chest: positive: Lungs Clear, Normal Breath Sounds. negative: Respiratory Distress, Accessory Muscle Use Cardiovascular: positive: Regular Rhythm, Tachycardia. negative: Murmur Gastrointestinal/Abdominal: positive: Soft. negative: Tenderness Integumentary: positive: Normal Color, Dry, Warm Neurologic: positive: Motor Strength 5/5 (ambulatory with unsteady gait). negative: Normal Mood/Affect (alert but intoxicated) ED Treatment Course - LABORATORY CBC & Chemistry Diagram: 12/24/17 15:35 12/24/17 15:35 - ADDITIONAL ORDERS Additional order review: Laboratory Results 12/24/17 15:08 Opiates Screen Negative Methadone Screen Negative Barbiturate Screen Negative Phencyclidine Screen Negative Ur Amphetamines Screen Negative MDMA (Ecstasy) Screen Negative Benzodiazepines Screen Negative Cocaine Screen Negative U Marijuana (THC) Screen Negative Medical Decision Making - Medical Decision Making 12/24/17 17:38 CC: Patient sent here from [facility] for medical clearance/evaluation. Patient requesting alcohol detox. Exam: tachy, Patient with unsteady Gait. Plan: Labs, ua, and etoh level ordered 12/24/17 17:40 Laboratory Tests 12/24/17 12/24/17 12/24/17 15:08 15:35 15:35 WBC 7.0 Hgb 14.1 Hct 41.0 Absolute Neuts (auto) 4.1 Sodium 142 Potassium 3.6 Chloride 107 Carbon Dioxide 26 Anion Gap 9 Creatinine 0.6 Random Glucose 102 Calcium 8.8 Total Bilirubin 0.7 AST 66 H ALT 42 Alkaline Phosphatase 86 Total Protein 7.4 Albumin 4.1 Opiates Screen Negative Methadone Screen Negative Barbiturate Screen Negative Phencyclidine Screen Negative Ur Amphetamines Screen Negative MDMA (Ecstasy) Screen Negative Benzodiazepines Screen Negative Cocaine Screen Negative U Marijuana (THC) Screen Negative 12/24/17 17:41 Pt will be given food tray 12/24/17 18:03 Went to bring patient a dinner try and unable to locate him in his assigned area , ER hallway or on the ER ramp. Patient will be considered an elopement. *DC/Admit/Observation/Transfer Diagnosis at time of Disposition: Alcohol intoxication Qualifiers: Complication of substance-induced condition: uncomplicated Qualified Code(s): F10.920 - Alcohol use, unspecified with intoxication, uncomplicated - Discharge Dispostion Disposition: ELOPED Condition at time of disposition: Unchanged/Unknown - Referrals - Patient Instructions - Post Discharge Activity
== END 2017-12-24 18:06 | disposition left against medical advice (07) ==
LOC: JER 13:57
DX: F10.120 Alcohol abuse with intoxication, uncomplicated (principal); R26.81 Unsteadiness on feet; E78.00 Pure hypercholesterolemia, unspecified; F31.9 Bipolar disorder, unspecified; Z86.73 Personal history of transient ischemic attack (TIA), and cerebral infarction without residual deficits
CPT/HCPCS: 36415; 80053; 80307; 85025; 99282-25

== ENCOUNTER 2018-01-06 08:35 | Inpatient (IN) | payer OTHER ==
[2018-01-06 09:15] VITALS: BMI 28.9
--- NOTE | 2018-01-06 09:52 | HP ---
CIWA Score - CIWA Score Nausea/Vomitin-Mild Nausea/No Vomiting Muscle Tremors: 2 Anxiety: 2 Agitation: 2 Paroxysmal Sweats: 1-Minimal Palms Moist Orientation: 0-Oriented Tacttile Disturbances: 1-Very Mild Itch/Numbness Auditory Disturbances: 1-Very Mild Visual Disturbances: 1-Very Mild Sensitivity Headache: 2-Mild CIWA-Ar Total Score: 13 Admission ROS BHS - HPI Chief Complaint: i need help to stop drinking alcohol,seen in [place] last night Allergies/Adverse Reactions: Allergies Allergy/AdvReac Type Severity Reaction Status Date / Time No Known Allergies Allergy Verified 01/06/18 09:25 History of Present Illness: this 47 years old male with alcohol dependence,seeking help,withdrawal symptom, last detox 04/28/17 to 05/02/17 seizure alcohol related,last 5 years ago arthritis injury to right shoulder 1 week ago old deformity of left wist 15 years ago bipolar disorder positive ppd no significant period of sobreity seen in [place] last night pain in the right shoulder no pain in the wrist or elbow - Ebola screening Have you traveled outside of the country in the last 21 days: No Have you had contact with anyone from an Ebola affected area: No Have you been sick,other than usual withdrawal symptoms: No Do you have a fever: No - Review of Systems Constitutional: Loss of Appetite, Malaise, Night Sweats, Changes in sleep EENT: reports: Nose Congestion Respiratory: reports: No Symptoms reported Cardiac: reports: Palpitations GI: reports: Nausea, Vomiting, Abdominal cramping : reports: No Symptoms Reported Musculoskeletal: reports: Back Pain, Muscle Pain, Joint Stiffness Integumentary: reports: Dryness Neuro: reports: Headache, Tremors Endocrine: reports: No Symptoms Reported Hematology: reports: No Symptoms Reported Psychiatric: reports: No Sypmtoms Reported, Judgement Intact, Mood/Affect Appropiate, Orientated x3 Patient History - Patient Medical History Hx Anemia: No Hx Asthma: No Hx Chronic Obstructive Pulmonary Disease (COPD): No Hx Cancer: No Hx Cardiac Disorders: No Hx Congestive Heart Failure: No Hx Hypertension: No Hx Hypercholesterolemia: Yes (NO MEDS) Hx Pacemaker: No HX Cerebrovascular Accident: Yes (2016) Hx Seizures: No Hx Dementia: No Hx Diabetes: No Hx Gastrointestinal Disorders: No Hx Liver Disease: No Hx Genitourinary Disorders: No Hx Sexually Transmitted Disorders: Yes (syphilis at age 14) Hx Renal Disease (ESRD): No Hx Thyroid Disease: No Hx Human Immunodeficiency Virus (HIV): No (NEGATIVE HX last negative 2016) Hx Hepatitis C: No Hx Depression: Yes Hx Suicide Attempt: No Hx Bipolar Disorder: Yes (on Seroquel and Zoloft as per Hx.) Hx Schizophrenia: No Other Medical History: no suicidal,no homicidal - Patient Surgical History Past Surgical History: No Hx Neurologic Surgery: No Hx Cataract Extraction: No Hx Cardiac Surgery: No Hx Lung Surgery: No Hx Breast Surgery: No Hx Breast Biopsy: No Hx Abdominal Surgery: No Hx Appendectomy: No Hx Cholecystectomy: No Hx Genitourinary Surgery: No Hx Section: No Hx Orthopedic Surgery: No Anesthesia Reaction: No - PPD History Previous Implant?: Yes Documented Results: Positive w/o proof Implanted On Prior [facility] Admission?: No Results: CXR neg 09/2016 PPD to be Administered?: No - Smoking Cessation Smoking history: Current every day smoker Have you smoked in the past 12 months: No Aproximately how many cigarettes per day: 4 Cigars Per Day: 0 Hx Chewing Tobacco Use: No Initiated information on smoking cessation: Yes 'Breaking Loose' booklet given: 01/06/18 - Substance & Tx. History Hx Alcohol Use: Yes Hx Substance Use: No Substance Use Type: Alcohol Hx Substance Use Treatment: Yes Family Disease History - Family Disease History Family Disease History: Diabetes: Mother (HTN), Other: Father (alcohol,) , Mother Admission Physical Exam BHS - Vital Signs Vital Signs: Vital Signs - 24 hr 01/06/18 09:14 Temperature 96.2 F L Pulse Rate 107 H Respiratory 20 Rate Blood Pressure 147/75 - Physical General Appearance: Yes: Mild Distress, Tremorous, Irritable, Anxious HEENTM: Yes: Normal ENT Inspection, KAYLYN, Pharynx Normal Respiratory: Yes: Within Normal Limits, Lungs Clear, No Respiratory Distress Neck: Yes: Within Normal Limits, Supple, Trachea in good position Breast: Yes: Within Normal Limits Cardiology: Yes: Tachycardia Abdominal: Yes: Within Normal Limits, Normal Bowel Sounds, Non Tender, Flat, Soft Genitourinary: Yes: Within Normal Limits Back: Yes: Muscle Spasm Musculoskeletal: Yes: Back pain, Muscle Pain Extremities: Yes: Tremors, Other (old deformity left wrist fx for 15 years pain pain in right shoulder) 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 NML intact, Alert, Motor Strength 5/5 Integumentary: Yes: Dry Lymphatic: Yes: Within Normal Limits - Diagnostic (1) Alcohol dependence with uncomplicated intoxication Current Visit: Yes Status: Acute (2) Alcohol dependence with withdrawal, uncomplicated Current Visit: No Status: Acute (3) Old cerebrovascular accident (CVA) without late effect Current Visit: Yes Status: Acute (4) Left wrist fracture Current Visit: Yes Status: Acute (5) Sprain of right shoulder Current Visit: Yes Status: Acute (6) History of syphilis Current Visit: Yes Status: Acute (7) Bipolar disorder Current Visit: Yes Status: Acute (8) Nicotine dependence Current Visit: No Status: Chronic Qualifiers: Nicotine product type: cigarettes Substance use status: uncomplicated Qualified Code(s): F17.210 - Nicotine dependence, cigarettes, uncomplicated Cleared for Admission S - Detox or Rehab [facility] Level of Care: Medically Managed Detox Regimen/Protocol: Librium S Breath Alcohol Content Breath Alcohol Content: 0.323 Urine Drug Screen - Results Drug Screen Negative: No Urine Drug Screen Results: BZO-Benzodiazepines
[2018-01-06] MEDS ORDERED: LOPERAMIDE HCL 2 MG CAPSULE PO PRN (10:03)
[2018-01-06] MEDS ORDERED: chlordiazePOXIDE HCL 25 MG CAPSULE PO PRN (10:03)
[2018-01-06] MEDS ORDERED: MAGNESIUM HYDROX 2400MG/30ML ORAL SUSPENSION 30 ML CUP PO PRN (10:03)
[2018-01-06] MEDS ORDERED: IBUPROFEN 400 MG TABLET (FP) PO PRN (10:03)
[2018-01-06] MEDS ORDERED: MENTHOL/PHENOL 1 EACH UD MM PRN (10:03)
[2018-01-06] MEDS ORDERED: MAG HYDROX/AL HYDROX/SIMETH 30 ML UNIT-DOSE CUP PO PRN (10:03)
[2018-01-06] MEDS ORDERED: P-EPHED 60MG/TRIPROLIDI 2.5MG TABLET PO PRN (10:03)
[2018-01-06] MEDS ORDERED: ACETAMINOPHEN 325 MG TABLET (FP) PO PRN (10:03)
[2018-01-06] MEDS ORDERED: MAGNESIUM CITRATE 300 ML BOTTLE PO PRN (10:03)
[2018-01-06] MEDS ORDERED: guaiFENesin/D-METHORPHAN HB 10 ML UNIT-DOSE CUPS PO PRN (10:03)
[2018-01-06] MEDS ORDERED: NICOTINE 21 MG/24 HOURS TOPICAL PATCH TD SCH (10:30)
[2018-01-06] MEDS ORDERED: chlordiazePOXIDE HCL 25 MG CAPSULE PO SCH (11:00)
--- NOTE | 2018-01-06 11:33 | CONSULT ---
[facility] Psychiatric Consult - Data Date of interview: 01/06/18 Admission source: [facility] Identifying data: Patient is a 47 year old single male, father of seven. unemployed, homeless and is supported by [facility]. This is one of multiple admissions for patient. Patient admitted to for alcohol dependence. Substance Abuse History: Smoking Cessation. Smoking history: Current every day smoker. Have you smoked in the past 12 months: No. Aproximately how many cigarettes per day: 4. Cigars Per Day: 0. Hx Chewing Tobacco Use: No. Initiated information on smoking cessation: Yes. 'Breaking Loose' booklet given : 01/06/18. - Substance & Tx. History. Hx Alcohol Use: Yes. Hx Substance Use : No. Substance Use Type: Alcohol. Hx Substance Use Treatment: Yes Medical History: hypercholesterolemia, CVA (2016), Syphillis Psychiatric History: Patient reports multiple psychiatric hospitalizations, most recently three years ago at [facility]. Patient is also known to [facility], and [facility]. Outpatient psychiatric care is provided in the [place], [place]. He last saw his outpatient psychiatrist three months ago. Patient is currently prescribed zoloft 100mg + Seroquel 100mg + Abilify 5mg + Amitriptyline 50mg PRN. Most recent prescription for all four medications were electronically sent on 12/17/17. Patient denies h/o suicide attempt. Patient is currently restless and is requesting to resume his medications. Physical/Sexual Abuse/Trauma History: denies. Mental Status Exam - Mental Status Exam Alert and Oriented to: Time, Place, Person Cognitive Function: Good Patient Appearance: Well Groomed Mood: Anxious, Euthymic Affect: Mood Congruent Patient Behavior: Cooperative Speech Pattern: Appropriate Voice Loudness: Moderately Soft/Quiet Thought Process: Intact, Goal Oriented Thought Disorder: Not Present Hallucinations: Denies Suicidal Ideation: Denies Homicidal Ideation: Denies Insight/Judgement: Poor Sleep: Poorly Appetite: Fair Muscle strength/Tone: Normal Gait/Station: Normal Psychiatric Findings - Problem List ([place] 1, 2,3) (1) Alcohol dependence with withdrawal, uncomplicated Status: Acute (2) Bipolar disorder Status: Chronic (3) Substance induced mood disorder Status: Acute (4) Nicotine dependence Status: Chronic Qualifiers: Nicotine product type: cigarettes Substance use status: uncomplicated Qualified Code(s): F17.210 - Nicotine dependence, cigarettes, uncomplicated - Initial Treatment Plan Initial Treatment Plan: Psychoeducation provided. Detoxification in progress. Will order Zoloft 100mg + Seroquel 100mg + Abilify 5mg. Benefits and side effects discussed. Verbal consent given.
[2018-01-06 13:11] VITALS: BP 130/76; TEMP 97.2
[2018-01-06 13:52] VITALS: PULSE 120
--- NOTE | 2018-01-06 14:05 | PN ---
[facility] Progress Note Note: NOTIFIED BY RN THAT PATIENT REQUESTED TO SIGN OUT AMA. PATIENT EVALUATED ON UNIT , FULLY DRESSED, PACING ON UNIT, AGITATED. 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 THE ALCOHOL IS CALLING ME AND THE MEDICATION DOES NOT HELP".PATIENT WAS GIVEN LIBRIUM 50MG AT 11:25AM. PATIENT COHERENT AND AWARE OF HIS SURROUNDINGS. PATIENT DENIES SI/HI, CHEST PAIN, SOB AND DIZZINESS. PATIENT STRONGLY ADVISED TO STAY IN DETOX BUT ADAMANTLY REFUSED. EXPLAINED RISK FACTORS OF RELAPSE/ TO PATIENT WITH NO POSITIVE EFFECT. PATIENT INSISTED HE HAD TO LEAVE RIGHT NOW. PATIENT EDUCATED TO SEEK MEDICAL ATTENTION/ GO TO ER/ CALL 911 IF WITHDRAWAL SYMPTOMS OCCUR. PATIENT SIGNED OUT AMA DESPITE EFFORTS. Vital Signs Temperature 97.2 F L 01/06/18 13:10 Pulse Rate 120 H 01/06/18 13:30 Respiratory Rate 20 01/06/18 13:30 Blood Pressure 130/76 01/06/18 13:10 O2 Sat by Pulse Oximetry (%)
--- NOTE | 2018-01-06 14:06 | DS ---
[facility] Detox Discharge Summary Admission Date: 01/06/18 - History Present History: Alcohol Dependence - Physical Exam Results Vital Signs: Vital Signs Temperature 97.2 F L 01/06/18 13:10 Pulse Rate 120 H 01/06/18 13:30 Respiratory Rate 20 01/06/18 13:30 Blood Pressure 130/76 01/06/18 13:10 O2 Sat by Pulse Oximetry (%) - Medication Discharge Medications: Ambulatory Orders Quetiapine Fumarate [Seroquel -] 200 mg PO HS 04/28/17 Sertraline HCl [Zoloft -] 100 mg PO DAILY 04/28/17 - Diagnosis (1) Alcohol dependence with uncomplicated intoxication Current Visit: Yes Status: Acute - AMA Did Patient Leave Against Medical Advice: Yes
--- NOTE | 2018-01-06 15:09 | EKG ---
Test Reason : Blood Pressure : / mmHG Vent. Rate : 103 BPM Atrial Rate : 103 BPM P-R Int : 162 ms QRS Dur : 084 ms QT Int : 344 ms P-R-T Axes : 049 050 034 degrees QTc Int : 450 ms SINUS TACHYCARDIA OTHERWISE NORMAL ECG WHEN COMPARED WITH ECG OF 28-APR-2017 21:13, NO SIGNIFICANT CHANGE WAS FOUND Confirmed by ARETHA BHAGAT MD ([id number]) on 01/06/2018 3:09:34 PM Referred By: Confirmed By:ARETHA BHAGAT MD
[2018-01-06] MEDS ORDERED: MELATONIN 5 MG TABLETS PO PRN (22:00)
[2018-01-06] MEDS ORDERED: THIAMINE HCL 100 MG TABLET (FP) PO SCH (22:00)
[2018-01-07] MEDS ORDERED: PRENATAL VITAMINS W/ FOLIC ACID TABLET (FP) PO SCH (10:00)
[2018-01-07] MEDS ORDERED: chlordiazePOXIDE HCL 25 MG CAPSULE PO SCH (11:00)
[2018-01-08] MEDS ORDERED: chlordiazePOXIDE 5 MG CAPSULE PO SCH (11:00)
[2018-01-09] MEDS ORDERED: chlordiazePOXIDE HCL 10 MG CAPSULE PO SCH (11:00)
== END 2018-01-06 13:49 | disposition left against medical advice (07) | DRG 770 ==
LOC: YASAS 08:35 → Y3N 09:55
PROC: HZ2ZZZZ Detoxification Services for Substance Abuse Treatment (ICD-10-PCS; principal; 2018-01-06)
DX: F10.230 Alcohol dependence with withdrawal, uncomplicated (principal); F10.220 Alcohol dependence with intoxication, uncomplicated; F17.210 Nicotine dependence, cigarettes, uncomplicated; F31.9 Bipolar disorder, unspecified; F19.24 Other psychoactive substance dependence with psychoactive substance-induced mood disorder; Z86.73 Personal history of transient ischemic attack (TIA), and cerebral infarction without residual deficits; Z87.438 Personal history of other diseases of male genital organs
CPT/HCPCS: 93005; 93010

== ENCOUNTER 2018-02-14 08:09 | Inpatient (IN) | payer OTHER ==
--- NOTE | 2018-02-14 08:50 | HP ---
CIWA Score Nausea/Vomitin Muscle Tremors: 2 Anxiety: 2 Agitation: 2 Paroxysmal Sweats: 1-Minimal Palms Moist Orientation: 0-Oriented Tacttile Disturbances: 1-Very Mild Itch/Numbness Auditory Disturbances: 1-Very Mild Visual Disturbances: 0-None Headache: 2-Mild CIWA-Ar Total Score: 13 - Admission Criteria OASAS Guidelines: Admission for Medically Managed Detox: Requires at least one of the followin. CIWA greater than 12 2. Seizures within the past 24 hours 3. Delirium tremens within the past 24 hours 4. Hallucinations within the past 24 hours 5. Acute intervention needed for co occurring medical disorder 6. Acute intervention needed for co occurring psychiatric disorder 7. Severe withdrawal that cannot be handled at a lower level of care (continued vomiting, continued diarrhea, abnormal vital signs) requiring intravenous medication and/or fluids 8. Patient presents the following: CIWA greater than 12 Admission Criteria Met: Admission criteria met Admission ROS [facility] - HPI Chief Complaint: i need help to stop drinking alcohol Allergies/Adverse Reactions: Allergies Allergy/AdvReac Type Severity Reaction Status Date / Time No Known Allergies Allergy Verified 02/14/18 09:01 History of Present Illness: this 47 years old male with alcohol dependence,seeking detox,withdrawal symptom, last detox 01/06/18 not completed seen in [place] last night syncope alcohol related seizure last 2016 nicotine dependence bipolar disorder,non compliance no significant period of sobriety Exam Limitations: No Limitations - Ebola screening Have you traveled outside of the country in the last 21 days: No Have you had contact with anyone from an Ebola affected area: No Do you have a fever: No - Review of Systems Constitutional: Loss of Appetite, Malaise, Night Sweats, Changes in sleep, Weakness EENT: reports: Nose Congestion Respiratory: reports: No Symptoms reported Cardiac: reports: Palpitations GI: reports: Nausea, Poor Appetite, Abdominal cramping : reports: No Symptoms Reported Musculoskeletal: reports: Back Pain, Muscle Pain Integumentary: reports: Dryness Neuro: reports: Headache, Tremors Endocrine: reports: No Symptoms Reported Hematology: reports: No Symptoms Reported Psychiatric: reports: No Sypmtoms Reported, Judgement Intact, Mood/Affect Appropiate, Orientated x3, other (bipolar disorder) Patient History - Patient Medical History Hx Anemia: No Hx Asthma: No Hx Chronic Obstructive Pulmonary Disease (COPD): No Hx Cancer: No Hx Cardiac Disorders: No Hx Congestive Heart Failure: No Hx Hypertension: No Hx Hypercholesterolemia: Yes (NO MEDS) Hx Pacemaker: No HX Cerebrovascular Accident: Yes (2015) Hx Seizures: No Hx Dementia: No Hx Diabetes: No Hx Gastrointestinal Disorders: No Hx Liver Disease: No Hx Genitourinary Disorders: No Hx Sexually Transmitted Disorders: Yes (syphilis at age 14) Hx Renal Disease (ESRD): No Hx Thyroid Disease: No Hx Human Immunodeficiency Virus (HIV): No (NEGATIVE HX last negative 2016) Hx Hepatitis C: No Hx Depression: Yes Hx Suicide Attempt: No Hx Bipolar Disorder: Yes (on Seroquel and Zoloft as per Hx.) Hx Schizophrenia: No - Patient Surgical History Past Surgical History: No Hx Neurologic Surgery: No Hx Cataract Extraction: No Hx Cardiac Surgery: No Hx Lung Surgery: No Hx Breast Surgery: No Hx Breast Biopsy: No Hx Abdominal Surgery: No Hx Appendectomy: No Hx Cholecystectomy: No Hx Genitourinary Surgery: No Hx Section: No Hx Orthopedic Surgery: No Anesthesia Reaction: No - PPD History Previous Implant?: Yes Documented Results: Positive w/o proof Results: CXR neg 09/2016 PPD to be Administered?: No - Smoking Cessation Smoking history: Current every day smoker Have you smoked in the past 12 months: No Aproximately how many cigarettes per day: 4 Cigars Per Day: 0 Hx Chewing Tobacco Use: No Initiated information on smoking cessation: Yes 'Breaking Loose' booklet given: 02/14/18 - Substance & Tx. History Hx Alcohol Use: Yes Hx Substance Use: No Substance Use Type: Alcohol Hx Substance Use Treatment: Yes ([facility] 01/06/18) - Substances Abused Alcohol Route: Oral Frequency: Daily Amount used: 3 pints of vodka/10 of 24 ozs of beer Age of first use: 11 Date of Last Use: 02/13/18 Family Disease History - Family Disease History Family Disease History: Diabetes: Mother (HTN), Other: Father (alcohol,) , Mother Admission Physical Exam S - Vital Signs Vital Signs: Vital Signs Temperature 99.8 F H 02/14/18 08:49 Pulse Rate 122 H 02/14/18 08:49 Respiratory Rate 20 02/14/18 08:49 Blood Pressure 141/90 02/14/18 08:49 O2 Sat by Pulse Oximetry (%) - Physical General Appearance: Yes: Moderate Distress, Tremorous, Sweating, Anxious HEENTM: Yes: Within Normal Limits, EOMI, KAYLYN, Pharynx Normal Respiratory: Yes: Lungs Clear, Normal Breath Sounds, No Respiratory Distress Neck: Yes: Within Normal Limits, Supple, Trachea in good position Breast: Yes: Within Normal Limits Cardiology: Yes: Tachycardia Abdominal: Yes: Within Normal Limits, Normal Bowel Sounds, Non Tender, Flat, Soft Genitourinary: Yes: Within Normal Limits Back: Yes: Muscle Spasm Musculoskeletal: Yes: Back pain, Muscle Pain Extremities: Yes: Tremors Neurological: Yes: charting clerk II-XII NML intact, Fully Oriented, Alert, Motor Strength 5/5 Integumentary: Yes: Dry Lymphatic: Yes: Within Normal Limits - Diagnostic (1) Alcohol dependence with withdrawal, uncomplicated Current Visit: No Status: Acute (2) History of syphilis Current Visit: No Status: Acute (3) Positive PPD, treated Current Visit: No Status: Acute (4) Bipolar disorder Current Visit: No Status: Chronic (5) Seizure Current Visit: No Status: Suspected Qualifiers: (6) Syncope Current Visit: No Status: Acute Qualifiers: Syncope type: unspecified Qualified Code(s): R55 - Syncope and collapse (7) Old cerebrovascular accident (CVA) without late effect Current Visit: Yes Status: Acute (8) Positive PPD Current Visit: No Status: Acute (9) Hyperlipidemia Current Visit: No Status: Chronic Qualifiers: Hyperlipidemia type: pure hypercholesterolemia Qualified Code(s): E78.00 - Pure hypercholesterolemia, unspecified; E78.0 - Pure hypercholesterolemia Comment: NO CURRENT MED (10) Nicotine dependence Current Visit: No Status: Chronic Qualifiers: Nicotine product type: cigarettes Substance use status: uncomplicated Qualified Code(s): F17.210 - Nicotine dependence, cigarettes, uncomplicated (11) Alcohol related seizure Current Visit: No Status: Suspected (12) Alcohol dependence with uncomplicated intoxication Current Visit: Yes Status: Acute Cleared for Admission S - Detox or Rehab [facility] Level of Care: Medically Managed Detox Regimen/Protocol: Librium [facility] Breath Alcohol Content Breath Alcohol Content: 0.323
[2018-02-14 08:56] VITALS: BMI 28.9
[2018-02-14] MEDS ORDERED: LOPERAMIDE HCL 2 MG CAPSULE PO PRN (08:59)
[2018-02-14] MEDS ORDERED: MAGNESIUM HYDROX 2400MG/30ML ORAL SUSPENSION 30 ML CUP PO PRN (08:59)
[2018-02-14] MEDS ORDERED: MAGNESIUM CITRATE 300 ML BOTTLE PO PRN (08:59)
[2018-02-14] MEDS ORDERED: MAG HYDROX/AL HYDROX/SIMETH 30 ML UNIT-DOSE CUP PO PRN (08:59)
[2018-02-14] MEDS ORDERED: MENTHOL/PHENOL 1 EACH UD MM PRN (08:59)
[2018-02-14] MEDS ORDERED: P-EPHED 60MG/TRIPROLIDI 2.5MG TABLET PO PRN (08:59)
[2018-02-14] MEDS ORDERED: IBUPROFEN 400 MG TABLET (FP) PO PRN (08:59)
[2018-02-14] MEDS ORDERED: guaiFENesin/D-METHORPHAN HB 10 ML UNIT-DOSE CUPS PO PRN (08:59)
[2018-02-14] MEDS: chlordiazePOXIDE HCL 25 MG CAPSULE PO SCH ×3 (11:06→22:27)
[2018-02-14] MEDS: PRENATAL VITAMINS W/ FOLIC ACID TABLET (FP) PO SCH (11:06)
[2018-02-14] MEDS: hydrOXYzine PAMOATE 50 MG CAPSULE (FP) PO PRN ×2 (13:12→16:32)
[2018-02-14] MEDS: chlordiazePOXIDE HCL 25 MG CAPSULE PO PRN (13:12)
--- NOTE | 2018-02-14 13:42 | CONSULT ---
[facility] Psychiatric Consult - Data Date of interview: 02/14/18 Admission source: [facility] Identifying data: This is a 47 years old male, single father of one, unemployed , homeless, on SSI support, with history of Bipolar Disorder, with no psychiatric hospitalization history, with alcohol and Nicotine dependence,is reporting withdrawal symptoms and seeking for detox,last detox 01/06/18 was not completed Substance Abuse History: Smoking history: Current every day smoker. Have you smoked in the past 12 months: No. Aproximately how many cigarettes per day: 4. Cigars Per Day: 0. Hx Chewing Tobacco Use: No. Initiated information on smoking cessation: Yes. 'Breaking Loose' booklet given: 02/14/18. - Substance & Tx. History. Hx Alcohol Use: Yes. Hx Substance Use: No. Substance Use Type : Alcohol. Hx Substance Use Treatment: Yes ([facility] 01/06/18). - Substances Abused. Alcohol. Route: Oral. Frequency: Daily. Amount used: 3 pints of vodka/10 of 24 ozs of beer. Age of first use: 11. Date of Last Use: 02/13/18 Medical History: History of CVA, htn, Syphilis history, history of positive PPD , R, Shoulder injury, Syphilis history, Hyperlipidemia, Arthritis, Seizure history Psychiatric History: Patient reports to carry Bipolar Disorder, reports no psychiatriv hospitalization history, stable opn : Seroquel 200mg po qhs. Zoloft 100mg poqd. Dnies suicidal and homicidal history Physical/Sexual Abuse/Trauma History: Denies Additional Comment: Seroquel 200mg po qhs. Zoloft 100mg poqd Mental Status Exam - Mental Status Exam Alert and Oriented to: Person Cognitive Function: Fair Patient Appearance: Well Groomed Mood: Apprehensive Affect: Mood Congruent Patient Behavior: Cooperative Speech Pattern: Appropriate Voice Loudness: Normal Thought Process: Goal Oriented Thought Disorder: Being Controlled Hallucinations: Denies Suicidal Ideation: Denies Homicidal Ideation: Denies Insight/Judgement: Fair Sleep: Difficulty falling asleep Appetite: Fair Muscle strength/Tone: Normal Gait/Station: Normal Additional Comments: Seroquel 200mg po qhs. Zoloft 100mg poqd Psychiatric Findings - Problem List ([place] 1, 2,3) (1) Alcohol dependence Current Visit: No Status: Acute (2) Alcohol dependence with uncomplicated intoxication Current Visit: No Status: Acute (3) Alcohol dependence with withdrawal, uncomplicated Current Visit: No Status: Acute (4) Drug-induced mood disorder Current Visit: No Status: Acute (5) History of syphilis Current Visit: No Status: Acute (6) Insomnia secondary to depression with anxiety Current Visit: No Status: Acute (7) Old cerebrovascular accident (CVA) without late effect Current Visit: No Status: Acute (8) Positive PPD, treated Current Visit: No Status: Acute (9) Shoulder abrasion Current Visit: No Status: Acute Qualifiers: Encounter type: initial encounter Laterality: left Qualified Code(s): S40.212A - Abrasion of left shoulder, initial encounter (10) Sprain of right shoulder Current Visit: No Status: Acute (11) Substance induced mood disorder Current Visit: No Status: Acute (12) Substance-induced sleep disorder Current Visit: No Status: Acute (13) Syncope Current Visit: No Status: Acute Qualifiers: Syncope type: unspecified Qualified Code(s): R55 - Syncope and collapse (14) Alcohol dependence in controlled environment Current Visit: No Status: Chronic (15) Arthritis Current Visit: No Status: Chronic Comment: BOTH KNEES AND LEFT WRIST (16) Bipolar 1 disorder Current Visit: No Status: Chronic Comment: History. (17) Chronic back pain Current Visit: No Status: Chronic (18) Hyperlipidemia Current Visit: No Status: Chronic Qualifiers: Hyperlipidemia type: pure hypercholesterolemia Qualified Code(s): E78.00 - Pure hypercholesterolemia, unspecified; E78.0 - Pure hypercholesterolemia Comment: NO CURRENT MED (19) Nicotine dependence Current Visit: No Status: Chronic Qualifiers: Nicotine product type: cigarettes Substance use status: uncomplicated Qualified Code(s): F17.210 - Nicotine dependence, cigarettes, uncomplicated - Initial Treatment Plan Initial Treatment Plan: Seroquel 200mg po qhs. Zoloft 100mg poqd
[2018-02-14] MEDS: SERTRALINE HCL 50 MG TABLET (FP) PO SCH (15:36)
[2018-02-14] MEDS: THIAMINE HCL 100 MG TABLET (FP) PO SCH (22:26)
[2018-02-14] MEDS: QUEtiapine FUMARATE 200 MG TABLET PO SCH (22:26)
[2018-02-14] MEDS: MELATONIN 5 MG TABLETS PO PRN (22:27)
[2018-02-15] MEDS: hydrOXYzine PAMOATE 50 MG CAPSULE (FP) PO PRN (00:17)
[2018-02-15] MEDS: chlordiazePOXIDE HCL 25 MG CAPSULE PO SCH ×4 (06:05→22:00)
[2018-02-15] MEDS: PRENATAL VITAMINS W/ FOLIC ACID TABLET (FP) PO SCH (10:03)
[2018-02-15] MEDS: SERTRALINE HCL 50 MG TABLET (FP) PO SCH (10:03)
[2018-02-15 10:51] LABS: HEMATOCRIT 38.5 % (35.4-49); HEMOGLOBIN 12.7 GM/dL (11.7-16.9); MCH 34.1 pg (25.7-33.7); MCHC 33.1 g/dl (32.0-35.9); MEAN CELL VOLUME 103.2 fl (80-96); MEAN PLT VOLUME 9.4 fl (7.5-11.1); PLATELET COUNT 40 K/MM3 (134-434); RBC 3.73 M/mm3 (4.00-5.60); WHITE BLOOD COUNT 3.9 K/mm3 (4.0-10.0)
[2018-02-15 11:17] LABS: ALBUMIN 3.7 g/dl (3.4-5.0); ALK PHOS 72 U/L (45-117); ANION GAP 10 MMOL/L (8-16); BILIRUBIN,TOTAL 1.2 mg/dL (0.2-1); BLOOD UREA NITROGEN 10 mg/dL (7-18); CHLORIDE 102 mmol/L (98-107); CO2 29 mmol/L (21-32); CREATININE 0.8 mg/dL (0.55-1.3); GLUCOSE,RANDOM 108 mg/dL (74-106); SGOT/AST 57 U/L (15-37); SGPT/ALT 53 U/L (13-61); SODIUM 141 mmol/L (136-145); TOT PROT 6.7 g/dl (6.4-8.2)
[2018-02-15] MEDS ORDERED: FLU VACCINE QUAD 60 MCG/0.5 ML (MDV 18-19) IM ONE (12:00)
--- NOTE | 2018-02-15 12:20 | PN ---
[facility] CIWA - CIWA Score Nausea/Vomitin-No Nausea/No Vomiting Muscle Tremors: 3 Anxiety: 3 Agitation: 3 Paroxysmal Sweats: 3 Orientation: 0-Oriented Tacttile Disturbances: 0-None Auditory Disturbances: 0-None Visual Disturbances: 0-None Headache: 0-None Present CIWA-Ar Total Score: 12 S Progress Note (SOAP) Subjective: sweats chills body aches dizzy interrupted sleep stomach ache Objective: 02/15/18 12:19 Vital Signs Temperature 97.8 F 02/15/18 09:50 Pulse Rate 66 02/15/18 09:50 Respiratory Rate 18 02/15/18 09:50 Blood Pressure 128/60 02/15/18 09:50 O2 Sat by Pulse Oximetry (%) Laboratory Tests 02/15/18 02/15/18 07:00 07:00 WBC 3.9 L RBC 3.73 L Hgb 12.7 Hct 38.5 MCV 103.2 H MCH 34.1 H MCHC 33.1 RDW 16.0 H Sodium 141 Potassium 3.0 L Chloride 102 Carbon Dioxide 29 Anion Gap 10 BUN 10 Creatinine 0.8 Creat Clearance w eGFR > 60 Random Glucose 108 H Calcium 9.0 Total Bilirubin 1.2 H AST 57 H ALT 53 Alkaline Phosphatase 72 Total Protein 6.7 Albumin 3.7 labs noted potassium 3.0; will order k-dur to replenish aaox3 lying in bed no acute distress Assessment: 02/15/18 12:19 withdrawal sx Plan: continue detox increase fluids kdur ordered
[2018-02-15] MEDS: POTASSIUM CHLORIDE TABS 20 MEQ TABLET.ER (FP) PO SCH (13:42)
[2018-02-15] MEDS: chlordiazePOXIDE HCL 25 MG CAPSULE PO PRN (13:50)
[2018-02-15] MEDS: ACETAMINOPHEN 325 MG TABLET (FP) PO PRN (21:36)
[2018-02-15] MEDS: QUEtiapine FUMARATE 200 MG TABLET PO SCH (21:36)
[2018-02-15] MEDS: THIAMINE HCL 100 MG TABLET (FP) PO SCH (21:57)
[2018-02-15] MEDS: MELATONIN 5 MG TABLETS PO PRN (23:20)
[2018-02-16] MEDS: chlordiazePOXIDE HCL 25 MG CAPSULE PO SCH (05:11)
--- NOTE | 2018-02-16 09:34 | EKG ---
Test Reason : Blood Pressure : / mmHG Vent. Rate : 102 BPM Atrial Rate : 102 BPM P-R Int : 156 ms QRS Dur : 088 ms QT Int : 340 ms P-R-T Axes : 029 028 044 degrees QTc Int : 443 ms SINUS TACHYCARDIA NONSPECIFIC T WAVE ABNORMALITY ABNORMAL ECG WHEN COMPARED WITH ECG OF 06-JAN-2018 10:58, NO SIGNIFICANT CHANGE WAS FOUND Confirmed by RICHARD MCCLOUD MD ([id number]) on 02/16/2018 9:34:21 AM Referred By: Confirmed By:RICHARD MCCLOUD MD
[2018-02-16] MEDS: SERTRALINE HCL 50 MG TABLET (FP) PO SCH (10:17)
[2018-02-16] MEDS: chlordiazePOXIDE 5 MG CAPSULE PO SCH ×3 (10:17→22:03)
[2018-02-16] MEDS: PRENATAL VITAMINS W/ FOLIC ACID TABLET (FP) PO SCH (10:17)
[2018-02-16] MEDS: POTASSIUM CHLORIDE TABS 20 MEQ TABLET.ER (FP) PO SCH (10:17)
--- NOTE | 2018-02-16 12:18 | PN ---
[facility] CIWA - CIWA Score Nausea/Vomitin-No Nausea/No Vomiting Muscle Tremors: 3 Anxiety: 3 Agitation: 3 Paroxysmal Sweats: 3 Orientation: 0-Oriented Tacttile Disturbances: 0-None Auditory Disturbances: 0-None Visual Disturbances: 0-None Headache: 0-None Present CIWA-Ar Total Score: 12 S Progress Note (SOAP) Subjective: stomach ache acid reflux body aches Objective: 02/16/18 12:17 Vital Signs Temperature 98.6 F 02/16/18 09:37 Pulse Rate 97 H 02/16/18 09:37 Respiratory Rate 18 02/16/18 09:37 Blood Pressure 102/75 02/16/18 09:37 O2 Sat by Pulse Oximetry (%) Laboratory Tests 02/15/18 02/15/18 02/15/18 07:00 07:00 07:00 WBC 3.9 L RBC 3.73 L Hgb 12.7 Hct 38.5 MCV 103.2 H MCH 34.1 H MCHC 33.1 RDW 16.0 H Plt Count 40 L D MPV 9.4 D Platelet Comment No clumping noted Sodium 141 Potassium 3.0 L Chloride 102 Carbon Dioxide 29 Anion Gap 10 BUN 10 Creatinine 0.8 Creat Clearance w eGFR > 60 Random Glucose 108 H Calcium 9.0 Total Bilirubin 1.2 H AST 57 H ALT 53 Alkaline Phosphatase 72 Total Protein 6.7 Albumin 3.7 RPR Titer Nonreactive aaox3 ambulating no acute distress Assessment: 02/16/18 12:18 withdrawal sx Plan: continue detox increase fluids zantac 150mg bid
[2018-02-16] MEDS: RANITIDINE HCL 150 MG TABLET (FP) PO SCH ×2 (12:43→22:03)
[2018-02-16] MEDS: hydrOXYzine PAMOATE 50 MG CAPSULE (FP) PO PRN (17:19)
[2018-02-16] MEDS: THIAMINE HCL 100 MG TABLET (FP) PO SCH (22:02)
[2018-02-16] MEDS: ACETAMINOPHEN 325 MG TABLET (FP) PO PRN (22:03)
[2018-02-16] MEDS: QUEtiapine FUMARATE 200 MG TABLET PO SCH (22:03)
[2018-02-17] MEDS: chlordiazePOXIDE HCL 25 MG CAPSULE PO PRN (00:45)
[2018-02-17] MEDS: MELATONIN 5 MG TABLETS PO PRN ×2 (00:46→22:19)
[2018-02-17] MEDS: chlordiazePOXIDE 5 MG CAPSULE PO SCH (06:37)
[2018-02-17] MEDS: chlordiazePOXIDE HCL 10 MG CAPSULE PO SCH ×3 (10:42→22:19)
[2018-02-17] MEDS: RANITIDINE HCL 150 MG TABLET (FP) PO SCH ×2 (10:42→22:19)
[2018-02-17] MEDS: SERTRALINE HCL 50 MG TABLET (FP) PO SCH (10:42)
[2018-02-17] MEDS: POTASSIUM CHLORIDE TABS 20 MEQ TABLET.ER (FP) PO SCH (10:42)
[2018-02-17] MEDS: PRENATAL VITAMINS W/ FOLIC ACID TABLET (FP) PO SCH (10:43)
--- NOTE | 2018-02-17 12:22 | PN ---
[facility] Progress Note (SOAP) Subjective: feeling better stomach ache Objective: 02/17/18 12:21 Vital Signs Temperature 97.7 F 02/17/18 09:13 Pulse Rate 58 L 02/17/18 09:13 Respiratory Rate 18 02/17/18 09:13 Blood Pressure 110/63 02/17/18 09:13 O2 Sat by Pulse Oximetry (%) aaox3 ambulating no acute distress Assessment: 02/17/18 12:21 withdrawal sx Plan: continue detox increase fluids MOM d/c in am
[2018-02-17] MEDS: QUEtiapine FUMARATE 200 MG TABLET PO SCH (22:19)
[2018-02-17] MEDS: THIAMINE HCL 100 MG TABLET (FP) PO SCH (22:19)
[2018-02-18] MEDS: chlordiazePOXIDE HCL 10 MG CAPSULE PO SCH (05:41)
--- NOTE | 2018-02-18 08:59 | DS ---
[facility] Detox Discharge Summary Admission Date: 02/14/18 Discharge Date: 02/18/18 - History Present History: Alcohol Dependence - Physical Exam Results Vital Signs: Vital Signs Temperature 97.7 F 02/18/18 06:37 Pulse Rate 69 02/18/18 06:37 Respiratory Rate 18 02/18/18 06:37 Blood Pressure 105/72 02/18/18 06:37 O2 Sat by Pulse Oximetry (%) - Treatment Hospital Course: Detox Protocol Followed, Detoxed Safely, Responded well, Discharged Condition Good, Rehab Referral Accepted - Medication Discharge Medications: Ambulatory Orders Quetiapine Fumarate [Seroquel -] 200 mg PO HS 04/28/17 Sertraline HCl [Zoloft -] 100 mg PO DAILY 04/28/17 - Diagnosis (1) Alcohol dependence with uncomplicated intoxication Current Visit: Yes Status: Chronic (2) Old cerebrovascular accident (CVA) without late effect Current Visit: Yes Status: Chronic (3) Drug-induced mood disorder Current Visit: No Status: Acute (4) History of syphilis Current Visit: No Status: Chronic (5) Insomnia secondary to depression with anxiety Current Visit: No Status: Acute (6) Positive PPD, treated Current Visit: No Status: Acute (7) Sprain of right shoulder Current Visit: No Status: Acute (8) Substance induced mood disorder Current Visit: No Status: Acute (9) Substance-induced sleep disorder Current Visit: No Status: Acute (10) Syncope Current Visit: No Status: Acute Qualifiers: Syncope type: unspecified Qualified Code(s): R55 - Syncope and collapse (11) Arthritis Current Visit: No Status: Chronic (12) Bipolar 1 disorder Current Visit: No Status: Chronic (13) Bipolar disorder Current Visit: No Status: Chronic (14) Chronic back pain Current Visit: Yes Status: Chronic Qualifiers: Back pain location: low back pain Back pain laterality: unspecified (15) Depression Current Visit: No Status: Chronic (16) Hyperlipidemia Current Visit: Yes Status: Chronic Qualifiers: Hyperlipidemia type: pure hypercholesterolemia Qualified Code(s): E78.00 - Pure hypercholesterolemia, unspecified; E78.0 - Pure hypercholesterolemia (17) Nicotine dependence Current Visit: Yes Status: Chronic Qualifiers: Nicotine product type: cigarettes Substance use status: uncomplicated Qualified Code(s): F17.210 - Nicotine dependence, cigarettes, uncomplicated (18) Alcohol related seizure Current Visit: Yes Status: Suspected (19) Bipolar II disorder Current Visit: No Status: Suspected - AMA Did Patient Leave Against Medical Advice: No (referred to [facility] rehab)
[2018-02-18] MEDS: POTASSIUM CHLORIDE TABS 20 MEQ TABLET.ER (FP) PO SCH (10:26)
[2018-02-18] MEDS: PRENATAL VITAMINS W/ FOLIC ACID TABLET (FP) PO SCH (10:26)
[2018-02-18] MEDS: RANITIDINE HCL 150 MG TABLET (FP) PO SCH (10:26)
[2018-02-18] MEDS: SERTRALINE HCL 50 MG TABLET (FP) PO SCH (10:26)
[2018-02-18 14:38] VITALS: BP 133/74; PULSE 68; TEMP 98.2
== END 2018-02-18 14:10 | disposition home or self-care (01) | DRG 775 ==
LOC: YASAS 08:09 → Y6N 09:14
PROC: HZ2ZZZZ Detoxification Services for Substance Abuse Treatment (ICD-10-PCS; principal; 2018-02-14)
DX: F10.230 Alcohol dependence with withdrawal, uncomplicated (principal); F17.210 Nicotine dependence, cigarettes, uncomplicated; F31.81 Bipolar II disorder; F31.9 Bipolar disorder, unspecified; F19.24 Other psychoactive substance dependence with psychoactive substance-induced mood disorder; F19.282 Other psychoactive substance dependence with psychoactive substance-induced sleep disorder; F41.8 Other specified anxiety disorders; R55 Syncope and collapse; I10 Essential (primary) hypertension; E87.6 Hypokalemia; E78.00 Pure hypercholesterolemia, unspecified; M12.9 Arthropathy, unspecified; M54.5 Low back pain; G89.29 Other chronic pain; S43.401A Unspecified sprain of right shoulder joint, initial encounter; R56.9 Unspecified convulsions; R76.11 Nonspecific reaction to tuberculin skin test without active tuberculosis; Z86.19 Personal history of other infectious and parasitic diseases; Z86.73 Personal history of transient ischemic attack (TIA), and cerebral infarction without residual deficits
CPT/HCPCS: 36415; 71045-TC-FY; 80053; 85027; 86593; 90688; 93005; 93010; G0008

== ENCOUNTER 2018-10-19 08:16 | Inpatient (IN) | payer OTHER ==
[2018-10-19 08:51] VITALS: BMI 30.7
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
[2018-10-19] MEDS ORDERED: MENTHOL/PHENOL 1 EACH UD MM PRN (09:37)
[2018-10-19] MEDS ORDERED: ACETAMINOPHEN 325 MG TABLET (FP) PO PRN (09:37)
[2018-10-19] MEDS ORDERED: MAGNESIUM HYDROX 2400MG/30ML ORAL SUSPENSION 30 ML CUP PO PRN (09:37)
[2018-10-19] MEDS ORDERED: MAGNESIUM CITRATE 300 ML BOTTLE PO PRN (09:37)
[2018-10-19] MEDS ORDERED: MAG HYDROX/AL HYDROX/SIMETH 30 ML UNIT-DOSE CUP PO PRN (09:37)
[2018-10-19] MEDS ORDERED: BISMUTH SUBSALICYLATE 262 MG/15 ML BTL PO PRN (09:37)
[2018-10-19] MEDS: chlordiazePOXIDE HCL 25 MG CAPSULE PO SCH ×3 (10:36→22:08)
[2018-10-19] MEDS: PRENATAL VITAMINS W/ FOLIC ACID TABLET (FP) PO SCH (10:39)
--- NOTE | 2018-10-19 14:17 | CONSULT ---
[facility] Psychiatric Consult - Data Date of interview: 10/19/18 Admission source: [facility] Identifying data: This is one of multiple admissions to [facility] for this 48 y/ o male self-referred for detoxification (alcohol). Examined at [address] [place] [address]. Patient is single,a father of four, homeless, unemployed and supported on SSI benefits. Substance Abuse History: Confirmed by patient in this session. Details in current [facility] report as follows : Smoking history: Current some day smoker. Have you smoked in the past 12 months: Yes. Aproximately how many cigarettes per day : 4. Cigars Per Day: 0. Hx Chewing Tobacco Use: No. Initiated information on smoking cessation: Yes. 'Breaking Loose' booklet given: 10/19/18. - Substance & Tx. History. Hx Alcohol Use: Yes (see history). Hx Substance Use: No. Substance Use Type: Alcohol. Hx Substance Use Treatment: Yes (multiple detoxes and hospitalizations). - Substances abused. Alcohol. Substance route: Oral. Frequency: Daily. Amount used: 15 24oz cans of beer, 1 bottles of $5 vodka. Age of first use: 11. Date of last use: 10/19/18 Medical History: Medical profile is remarkable for positive PPD (treated), antecedent of CVA (no residual effects), hypercholesterolemia, past treatment for syphilis, arthritis and a distant history of withdrawal-related seizures. Psychiatric History: Patient endorses a history of multiple psychiatric hospitalizations. Diagnosed with Bipolar Disorder. Known to [facility], [facility], [facility]). Onset of psychiatric disturbances in 2006. Mr Stokes admits to chronic non-adherence to [facility] care. He is currently prescribed seroquel 200 mg/hs. No reported history of suicide attempts. Physical/Sexual Abuse/Trauma History: Patient denies history of abuse. Additional Comment: Urine drug screen results: BZO-Benzodiazepines. Noted. Mental Status Exam - Mental Status Exam Alert and Oriented to: Time, Place, Person Cognitive Function: Good Patient Appearance: Well Groomed Mood: Nervous, Withdrawn Affect: Mood Congruent, Constricted Patient Behavior: Fatigued, Cooperative Speech Pattern: Clear, Appropriate Voice Loudness: Normal Thought Process: Intact, Goal Oriented Thought Disorder: Not Present Hallucinations: Denies Suicidal Ideation: Denies Homicidal Ideation: Denies Insight/Judgement: Poor Sleep: Poorly, Difficulty falling asleep Appetite: Good Muscle strength/Tone: Normal Gait/Station: Normal Psychiatric Findings - Problem List ([place] 1, 2,3) (1) Alcohol dependence with uncomplicated withdrawal Current Visit: Yes Status: Acute (2) Nicotine dependence Current Visit: Yes Status: Chronic Qualifiers: Nicotine product type: cigarettes Substance use status: uncomplicated Qualified Code(s): F17.210 - Nicotine dependence, cigarettes, uncomplicated (3) Substance induced mood disorder Current Visit: Yes Status: Chronic (4) Bipolar disorder Current Visit: Yes Status: Chronic Comment: By history. (5) Insomnia Current Visit: Yes Status: Chronic - Initial Treatment Plan Initial Treatment Plan: Psychoeducation. Detoxification. Sleep hygiene. Support. Relapse prevention (MAT) suggested to patient. Expresses interest in rehabilitation (social work team will follow). AA meetings. Groups. Resumed : seroquel 200 mg po hs + zoloft 100 mg po daily. Side effects/benefits discussed with patient. Mr Stokes is in agreement with this plan of care. Gave his consent (verbally) to MD. Huang.
[2018-10-19 15:13] LABS: ALBUMIN 3.4 g/dl (3.4-5.0); BILIRUBIN,TOTAL 0.7 mg/dL (0.2-1); BLOOD UREA NITROGEN 10.5 mg/dL (7-18); CALCIUM 8.4 mg/dL (8.5-10.1); CREATININE 0.8 mg/dL (0.55-1.3); POTASSIUM 3.8 mmol/L (3.5-5.1); TOT PROT 7.2 g/dl (6.4-8.2)
[2018-10-19 15:25] LABS: HEMATOCRIT 36.9 % (35.4-49); HEMOGLOBIN 12.5 GM/dL (11.7-16.9); MCH 33.2 pg (25.7-33.7); MEAN CELL VOLUME 97.8 fl (80-96); MEAN PLT VOLUME 7.6 fl (7.5-11.1); PLATELET COUNT 210 K/MM3 (134-434); RBC 3.77 M/mm3 (4.00-5.60); RDW 13.5 % (11.9-15.9); WHITE BLOOD COUNT 7.4 K/mm3 (4.0-10.0)
[2018-10-19] MEDS: hydrOXYzine HCL 25 MG TABLET (FP) PO PRN (15:41)
[2018-10-19] MEDS: chlordiazePOXIDE HCL 25 MG CAPSULE PO PRN (19:59)
[2018-10-19] MEDS: QUEtiapine FUMARATE 200 MG TABLET PO SCH (22:08)
[2018-10-19] MEDS: MELATONIN 5 MG TABLETS PO PRN (22:08)
[2018-10-19] MEDS: THIAMINE HCL 100 MG TABLET (FP) PO SCH (22:08)
[2018-10-20] MEDS: chlordiazePOXIDE HCL 25 MG CAPSULE PO SCH ×4 (06:04→22:17)
[2018-10-20] MEDS: PRENATAL VITAMINS W/ FOLIC ACID TABLET (FP) PO SCH (10:13)
[2018-10-20] MEDS: SERTRALINE HCL 50 MG TABLET (FP) PO SCH (10:13)
[2018-10-20] MEDS: chlordiazePOXIDE HCL 25 MG CAPSULE PO PRN (14:44)
--- NOTE | 2018-10-20 15:50 | PN ---
[facility] CIWA - CIWA Score Nausea/Vomitin-Mild Nausea/No Vomiting Muscle Tremors: 4-Moderate,w/Arms Extend Anxiety: 3 Agitation: 3 Paroxysmal Sweats: 2 Orientation: 0-Oriented Tacttile Disturbances: 1-Very Mild Itch/Numbness Auditory Disturbances: 0-None Visual Disturbances: 0-None Headache: 1-Very Mild CIWA-Ar Total Score: 15 S Progress Note (SOAP) Subjective: 48 years old male admitted on 10/19/18 for acute alcohol withdrawal sx management feeling tired today resting on bed limited conversation with staff tremor sweat Objective: 10/20/18 15:49 Vital Signs Temperature 98.2 F 10/20/18 13:43 Pulse Rate 56 L 10/20/18 13:43 Respiratory Rate 19 10/20/18 13:43 Blood Pressure 111/77 10/20/18 13:43 O2 Sat by Pulse Oximetry (%) Laboratory Last Values WBC 7.4 K/mm3 (4.0-10.0) 10/19/18 09:30 RBC 3.77 M/mm3 (4.00-5.60) L 10/19/18 09:30 Hgb 12.5 GM/dL (11.7-16.9) 10/19/18 09:30 Hct 36.9 % (35.4-49) 10/19/18 09:30 MCV 97.8 fl (80-96) H 10/19/18 09:30 MCH 33.2 pg (25.7-33.7) 10/19/18 09:30 MCHC 34.0 g/dl (32.0-35.9) 10/19/18 09:30 RDW 13.5 % (11.9-15.9) D 10/19/18 09:30 Plt Count 210 K/MM3 (134-434) D 10/19/18 09:30 MPV 7.6 fl (7.5-11.1) D 10/19/18 09:30 Sodium 137 mmol/L (136-145) 10/19/18 09:30 Potassium 3.8 mmol/L (3.5-5.1) 10/19/18 09:30 Chloride 102 mmol/L (98-107) 10/19/18 09:30 Carbon Dioxide 24 mmol/L (21-32) 10/19/18 09:30 Anion Gap 11 MMOL/L (8-16) 10/19/18 09:30 BUN 10.5 mg/dL (7-18) 10/19/18 09:30 Creatinine 0.8 mg/dL (0.55-1.3) 10/19/18 09:30 Est GFR (CKD-EPI)AfAm 120.72 10/19/18 09:30 Est GFR (CKD-EPI)NonAf 104.16 10/19/18 09:30 Random Glucose 171 mg/dL (74-106) H 10/19/18 09:30 d Calcium 8.4 mg/dL (8.5-10.1) L 10/19/18 09:30 Total Bilirubin 0.7 mg/dL (0.2-1) 10/19/18 09:30 AST 27 U/L (15-37) 10/19/18 09:30 ALT 22 U/L (13-61) 10/19/18 09:30 Alkaline Phosphatase 83 U/L (45-117) 10/19/18 09:30 Total Protein 7.2 g/dl (6.4-8.2) 10/19/18 09:30 Albumin 3.4 g/dl (3.4-5.0) 10/19/18 09:30 RPR Titer Nonreactive (NONREACTIVE) 10/19/18 09:30 lab note Assessment: 10/20/18 15:50 alcohol withdrawal sx alert oriented x 3 speech clearly tolerate food and fluid well Plan: continue librium detox regimen
[2018-10-20] MEDS: THIAMINE HCL 100 MG TABLET (FP) PO SCH (22:17)
[2018-10-20] MEDS: QUEtiapine FUMARATE 200 MG TABLET PO SCH (22:17)
[2018-10-20] MEDS: MELATONIN 5 MG TABLETS PO PRN (22:18)
[2018-10-20] MEDS: METHOCARBAMOL 500 MG TABLET PO PRN (22:18)
[2018-10-21] MEDS: chlordiazePOXIDE HCL 25 MG CAPSULE PO SCH ×4 (05:02→22:06)
[2018-10-21] MEDS: SERTRALINE HCL 50 MG TABLET (FP) PO SCH (10:13)
[2018-10-21] MEDS: PRENATAL VITAMINS W/ FOLIC ACID TABLET (FP) PO SCH (10:15)
[2018-10-21] MEDS: chlordiazePOXIDE HCL 25 MG CAPSULE PO PRN ×2 (12:27→19:02)
--- NOTE | 2018-10-21 15:06 | PN ---
S CIWA - CIWA Score Nausea/Vomitin-No Nausea/No Vomiting Muscle Tremors: 2 Anxiety: 4-Mod. Anxious/Guarded Agitation: 0-Normal Activity Paroxysmal Sweats: 2 Orientation: 0-Oriented Tacttile Disturbances: 1-Very Mild Itch/Numbness Auditory Disturbances: 0-None Visual Disturbances: 1-Very Mild Sensitivity Headache: 0-None Present CIWA-Ar Total Score: 10 BHS Progress Note (SOAP) Subjective: Tremors, Anxious, Sweating. Objective: PATIENT A & O X 3. IN NO ACUTE DISTRESS. 10/21/18 15:07 Vital Signs Temperature 98.2 F 10/21/18 13:18 Pulse Rate 87 10/21/18 13:18 Respiratory Rate 18 10/21/18 13:18 Blood Pressure 119/80 10/21/18 13:18 O2 Sat by Pulse Oximetry (%) Laboratory Tests 10/19/18 10/19/18 10/19/18 09:30 09:30 09:30 WBC 7.4 RBC 3.77 L Hgb 12.5 Hct 36.9 MCV 97.8 H MCH 33.2 MCHC 34.0 RDW 13.5 D Plt Count 210 D MPV 7.6 D Sodium 137 Potassium 3.8 Chloride 102 Carbon Dioxide 24 Anion Gap 11 BUN 10.5 Creatinine 0.8 Est GFR (CKD-EPI)AfAm 120.72 Est GFR (CKD-EPI)NonAf 104.16 Random Glucose 171 H Calcium 8.4 L Total Bilirubin 0.7 AST 27 ALT 22 Alkaline Phosphatase 83 Total Protein 7.2 Albumin 3.4 RPR Titer Nonreactive LABS NOTED. Assessment: 10/21/18 15:07 WITHDRAWAL SYMPTOMS. HYPERGLYCEMIA. 10/21/18 15:08 Plan: CONTINUE DETOX. INCREASE DAILY PO WATER INTAKE. FASTING GLUCOSE LEVEL ORDERED FOR TOMORROW AM FOR ELEVATED RANDOM GLUCOSE LEVEL NOTED ON DETOX ADMISSION LABORATORY ASSESSMENT (PATIENT DENIED KNOWN HISTORY OF DIABETES MELLITUS ON DETOX ADMISSION LABORATORY ASSESSMENT).
[2018-10-21] MEDS: IBUPROFEN 400 MG TABLET (FP) PO PRN (17:36)
[2018-10-21] MEDS: QUEtiapine FUMARATE 200 MG TABLET PO SCH (22:06)
[2018-10-21] MEDS: MELATONIN 5 MG TABLETS PO PRN (22:06)
[2018-10-21] MEDS: THIAMINE HCL 100 MG TABLET (FP) PO SCH (22:06)
[2018-10-22] MEDS ORDERED: chlordiazePOXIDE HCL 10 MG CAPSULE PO PRN
[2018-10-22] MEDS: chlordiazePOXIDE HCL 10 MG CAPSULE PO SCH ×4 (05:49→22:08)
[2018-10-22] MEDS: METHOCARBAMOL 500 MG TABLET PO PRN ×2 (05:51→13:16)
[2018-10-22] MEDS: SERTRALINE HCL 50 MG TABLET (FP) PO SCH (10:08)
[2018-10-22] MEDS: PRENATAL VITAMINS W/ FOLIC ACID TABLET (FP) PO SCH (10:09)
[2018-10-22] MEDS: IBUPROFEN 400 MG TABLET (FP) PO PRN (10:10)
--- NOTE | 2018-10-22 14:26 | PN ---
S CIWA - CIWA Score Nausea/Vomitin-No Nausea/No Vomiting Muscle Tremors: 1-None Visible, but [place] Anxiety: 3 Agitation: 1-Slight > Activity Paroxysmal Sweats: 3 Orientation: 0-Oriented Tacttile Disturbances: 0-None Auditory Disturbances: 0-None Visual Disturbances: 2-Mild Sensitivity Headache: 0-None Present CIWA-Ar Total Score: 10 BHS Progress Note (SOAP) Subjective: Anxious, Sweating, Body Aches. Objective: PATIENT A & O X 3, OBSERVED AMBULATING ON UNIT UNASSISTED. IN NO ACUTE DISTRESS. 10/22/18 14:26 Vital Signs Temperature 98 F 10/22/18 09:43 Pulse Rate 52 L 10/22/18 09:43 Respiratory Rate 18 10/22/18 09:43 Blood Pressure 127/60 10/22/18 09:43 O2 Sat by Pulse Oximetry (%) Laboratory Tests 10/19/18 10/19/18 10/19/18 09:30 09:30 09:30 WBC 7.4 RBC 3.77 L Hgb 12.5 Hct 36.9 MCV 97.8 H MCH 33.2 MCHC 34.0 RDW 13.5 D Plt Count 210 D MPV 7.6 D Sodium 137 Potassium 3.8 Chloride 102 Carbon Dioxide 24 Anion Gap 11 BUN 10.5 Creatinine 0.8 Est GFR (CKD-EPI)AfAm 120.72 Est GFR (CKD-EPI)NonAf 104.16 Random Glucose 171 H Fasting Glucose Calcium 8.4 L Total Bilirubin 0.7 AST 27 ALT 22 Alkaline Phosphatase 83 Total Protein 7.2 Albumin 3.4 RPR Titer Nonreactive 10/22/18 07:30 WBC RBC Hgb Hct MCV MCH MCHC RDW Plt Count MPV Sodium Potassium Chloride Carbon Dioxide Anion Gap BUN Creatinine Est GFR (CKD-EPI)AfAm Est GFR (CKD-EPI)NonAf Random Glucose Fasting Glucose 86 Calcium Total Bilirubin AST ALT Alkaline Phosphatase Total Protein Albumin RPR Titer LABS NOTED. RESULT OF FASTING GLUCOSE LEVEL DRAWN EARLIER THIS NOTED (86) - WITHIN NORMAL RANGE. 10/22/18 14:28 Assessment: 10/22/18 14:27 WITHDRAWAL SYMPTOMS. Plan: CONTINUE DETOX. INCREASE DAILY PO WATER INTAKE.
[2018-10-22] MEDS: QUEtiapine FUMARATE 200 MG TABLET PO SCH (22:08)
[2018-10-22] MEDS: THIAMINE HCL 100 MG TABLET (FP) PO SCH (22:08)
[2018-10-22] MEDS: MELATONIN 5 MG TABLETS PO PRN (22:08)
[2018-10-23] MEDS: chlordiazePOXIDE HCL 10 MG CAPSULE PO SCH ×2 (05:40→17:01)
--- NOTE | 2018-10-23 10:04 | PN ---
[facility] CIWA - CIWA Score Nausea/Vomitin-No Nausea/No Vomiting Muscle Tremors: 2 Anxiety: 1-Mildly Anxious Agitation: 2 Paroxysmal Sweats: 1-Minimal Palms Moist Orientation: 0-Oriented Tacttile Disturbances: 0-None Auditory Disturbances: 0-None Visual Disturbances: 0-None Headache: 0-None Present CIWA-Ar Total Score: 6 S Progress Note (SOAP) Subjective: 48 years old male admitted on 10/19/18 for acute alcohol withdrawal sx management doing well with valium detox regimen discuss aftercare with staff prefers [facility] less tremor mild restlessness Objective: 10/23/18 10:04 Vital Signs Temperature 97.1 F L 10/23/18 09:31 Pulse Rate 62 10/23/18 09:31 Respiratory Rate 20 10/23/18 09:31 Blood Pressure 102/60 10/23/18 09:31 O2 Sat by Pulse Oximetry (%) Laboratory Last Values WBC 7.4 K/mm3 (4.0-10.0) 10/19/18 09:30 RBC 3.77 M/mm3 (4.00-5.60) L 10/19/18 09:30 Hgb 12.5 GM/dL (11.7-16.9) 10/19/18 09:30 Hct 36.9 % (35.4-49) 10/19/18 09:30 MCV 97.8 fl (80-96) H 10/19/18 09:30 MCH 33.2 pg (25.7-33.7) 10/19/18 09:30 MCHC 34.0 g/dl (32.0-35.9) 10/19/18 09:30 RDW 13.5 % (11.9-15.9) D 10/19/18 09:30 Plt Count 210 K/MM3 (134-434) D 10/19/18 09:30 MPV 7.6 fl (7.5-11.1) D 10/19/18 09:30 Sodium 137 mmol/L (136-145) 10/19/18 09:30 Potassium 3.8 mmol/L (3.5-5.1) 10/19/18 09:30 Chloride 102 mmol/L (98-107) 10/19/18 09:30 Carbon Dioxide 24 mmol/L (21-32) 10/19/18 09:30 Anion Gap 11 MMOL/L (8-16) 10/19/18 09:30 BUN 10.5 mg/dL (7-18) 10/19/18 09:30 Creatinine 0.8 mg/dL (0.55-1.3) 10/19/18 09:30 Est GFR (CKD-EPI)AfAm 120.72 10/19/18 09:30 Est GFR (CKD-EPI)NonAf 104.16 10/19/18 09:30 Random Glucose 171 mg/dL (74-106) H 10/19/18 09:30 Fasting Glucose 86 mg/dL (74-106) 10/22/18 07:30 Calcium 8.4 mg/dL (8.5-10.1) L 10/19/18 09:30 Total Bilirubin 0.7 mg/dL (0.2-1) 10/19/18 09:30 AST 27 U/L (15-37) 10/19/18 09:30 ALT 22 U/L (13-61) 10/19/18 09:30 Alkaline Phosphatase 83 U/L (45-117) 10/19/18 09:30 Total Protein 7.2 g/dl (6.4-8.2) 10/19/18 09:30 Albumin 3.4 g/dl (3.4-5.0) 10/19/18 09:30 RPR Titer Nonreactive (NONREACTIVE) 10/19/18 09:30 lab noted Assessment: 10/23/18 10:05 alcohol withdrawal sx alert oriented x 3 resting on bed sleep better at might
[2018-10-23] MEDS: SERTRALINE HCL 50 MG TABLET (FP) PO SCH (10:41)
[2018-10-23] MEDS: PRENATAL VITAMINS W/ FOLIC ACID TABLET (FP) PO SCH (10:41)
[2018-10-23] MEDS: METHOCARBAMOL 500 MG TABLET PO PRN (15:03)
[2018-10-23] MEDS: ACETAMINOPHEN 325 MG TABLET (FP) PO PRN ×2 (15:03→21:33)
[2018-10-23] MEDS: QUEtiapine FUMARATE 200 MG TABLET PO SCH (21:33)
[2018-10-23] MEDS: THIAMINE HCL 100 MG TABLET (FP) PO SCH (21:33)
[2018-10-23] MEDS: MELATONIN 5 MG TABLETS PO PRN (21:34)
[2018-10-24] MEDS ORDERED: chlordiazePOXIDE HCL 10 MG CAPSULE PO ONE (05:00)
[2018-10-24] MEDS: PRENATAL VITAMINS W/ FOLIC ACID TABLET (FP) PO SCH (10:30)
[2018-10-24] MEDS: SERTRALINE HCL 50 MG TABLET (FP) PO SCH (10:30)
[2018-10-24 13:23] VITALS: TEMP 97.8
--- NOTE | 2018-10-24 14:53 | DS ---
[facility] Detox Discharge Summary Admission Date: 10/19/18 Discharge Date: 10/24/18 - History Present History: Alcohol Dependence Additional Comments: 48 years old male admitted on 10/19/18 for acute alcohol withdrawal sx management doing well with valium detox regimen no complication through out the detox stay seem by psychiatrist begin seroquel and zoloft - Physical Exam Results Vital Signs: Vital Signs Temperature 97.8 F 10/24/18 13:22 Pulse Rate 60 10/24/18 13:22 Respiratory Rate 18 10/24/18 13:22 Blood Pressure 113/71 10/24/18 13:22 O2 Sat by Pulse Oximetry (%) Pertinent Admission Physical Exam Findings: alcohol withdrawal sx Laboratory Last Values WBC 7.4 K/mm3 (4.0-10.0) 10/19/18 09:30 RBC 3.77 M/mm3 (4.00-5.60) L 10/19/18 09:30 Hgb 12.5 GM/dL (11.7-16.9) 10/19/18 09:30 Hct 36.9 % (35.4-49) 10/19/18 09:30 MCV 97.8 fl (80-96) H 10/19/18 09:30 MCH 33.2 pg (25.7-33.7) 10/19/18 09:30 MCHC 34.0 g/dl (32.0-35.9) 10/19/18 09:30 RDW 13.5 % (11.9-15.9) D 10/19/18 09:30 Plt Count 210 K/MM3 (134-434) D 10/19/18 09:30 MPV 7.6 fl (7.5-11.1) D 10/19/18 09:30 Sodium 137 mmol/L (136-145) 10/19/18 09:30 Potassium 3.8 mmol/L (3.5-5.1) 10/19/18 09:30 Chloride 102 mmol/L (98-107) 10/19/18 09:30 Carbon Dioxide 24 mmol/L (21-32) 10/19/18 09:30 Anion Gap 11 MMOL/L (8-16) 10/19/18 09:30 BUN 10.5 mg/dL (7-18) 10/19/18 09:30 Creatinine 0.8 mg/dL (0.55-1.3) 10/19/18 09:30 Est GFR (CKD-EPI)AfAm 120.72 10/19/18 09:30 Est GFR (CKD-EPI)NonAf 104.16 10/19/18 09:30 Random Glucose 171 mg/dL (74-106) H 10/19/18 09:30 Fasting Glucose 86 mg/dL (74-106) 10/22/18 07:30 Calcium 8.4 mg/dL (8.5-10.1) L 10/19/18 09:30 Total Bilirubin 0.7 mg/dL (0.2-1) 10/19/18 09:30 AST 27 U/L (15-37) 10/19/18 09:30 ALT 22 U/L (13-61) 10/19/18 09:30 Alkaline Phosphatase 83 U/L (45-117) 10/19/18 09:30 Total Protein 7.2 g/dl (6.4-8.2) 10/19/18 09:30 Albumin 3.4 g/dl (3.4-5.0) 10/19/18 09:30 RPR Titer Nonreactive (NONREACTIVE) 10/19/18 09:30 lab noted alert oriented x 3 S1S2 Regular clear lung bilaterally alert oriented x 3 steady speech clearlt - Treatment Hospital Course: Detox Protocol Followed, Detoxed Safely, Responded well (rev), Discharged Condition Good, Rehab Referral Accepted Patient has Accepted a Rehab Referral to: [facility] - Medication Discharge Medications: Ambulatory Orders Quetiapine Fumarate [Seroquel -] 200 mg PO HS 04/28/17 Sertraline HCl [Zoloft -] 100 mg PO DAILY 04/28/17 - Diagnosis (1) Alcohol dependence with uncomplicated withdrawal Current Visit: Yes Status: Acute (2) Hyperlipidemia Current Visit: Yes Status: Chronic Qualifiers: Hyperlipidemia type: pure hypercholesterolemia Qualified Code(s): E78.00 - Pure hypercholesterolemia, unspecified; E78.0 - Pure hypercholesterolemia (3) Nicotine dependence Current Visit: Yes Status: Acute Qualifiers: Nicotine product type: cigarettes Substance use status: in withdrawal Qualified Code(s): F17.213 - Nicotine dependence, cigarettes, with withdrawal (4) Substance induced mood disorder Current Visit: Yes Status: Suspected (5) Positive PPD, treated Current Visit: Yes Status: Suspected - AMA Did Patient Leave Against Medical Advice: No
[2018-10-24] MEDS: METHOCARBAMOL 500 MG TABLET PO PRN (15:10)
[2018-10-24] MEDS: hydrOXYzine HCL 25 MG TABLET (FP) PO PRN (16:41)
[2018-10-24 17:01] VITALS: BP 119/67; PULSE 58
== END 2018-10-24 19:29 | disposition other institution (70) | DRG 775 ==
LOC: YASAS 08:16 → Y3N 09:57
PROVIDERS: ADMIT Surgery; ATTEND Surgery
PROC: HZ2ZZZZ Detoxification Services for Substance Abuse Treatment (ICD-10-PCS; principal; 2018-10-19)
DX: F10.230 Alcohol dependence with withdrawal, uncomplicated (principal); F17.213 Nicotine dependence, cigarettes, with withdrawal; F19.24 Other psychoactive substance dependence with psychoactive substance-induced mood disorder; F31.9 Bipolar disorder, unspecified; R73.9 Hyperglycemia, unspecified; E78.5 Hyperlipidemia, unspecified; G47.00 Insomnia, unspecified; R76.11 Nonspecific reaction to tuberculin skin test without active tuberculosis; R00.0 Tachycardia, unspecified; Z86.73 Personal history of transient ischemic attack (TIA), and cerebral infarction without residual deficits; Z87.438 Personal history of other diseases of male genital organs; Z86.69 Personal history of other diseases of the nervous system and sense organs
CPT/HCPCS: 36415; 80053; 82947; 85027; 86593

== ENCOUNTER 2018-10-24 19:33 | Inpatient (IN) | payer OTHER ==
--- NOTE | 2018-10-24 15:03 | HP ---
[facility] Rehab Assess/Revision - Admission History Admitted to Rehab from: [facility] Date of Admission to Rehab: 10/24/18 - Findings Detox History & Physical reviewed: Yes Concur with findings: Yes Comments/Additional Findings: transferred from detox to rehab admission as per protocol Inpatient Rehab Admission - Rehab Decision to Admit Inpatient rehab admission?: Yes - Initial Determination Are CD services needed?: Yes Free of communicable disease: Yes Not in need of hospitalization: Yes - Rehab Admission Criteria Previous failed treatment: Yes Poor recovery environment: Yes Comorbidities: Yes Lacks judgement: No Patient is meeting Inpatient Rehab admission criteria:: Yes
[~2018-10-24 19:33] MED LIST changes: +ACETAMINOPHEN 325 MG TABLET (FP) PO PRN; -ALBUTEROL SO4 0.083% IH SOL 2.5 MG/3 ML VIAL.NEB. NEB ONE; +LOPERAMIDE HCL 2 MG CAPSULE PO PRN; +MAG HYDROX/AL HYDROX/SIMETH 30 ML UNIT-DOSE CUP PO PRN; +MAGNESIUM CITRATE 300 ML BOTTLE PO PRN; +MAGNESIUM HYDROX 2400MG/30ML ORAL SUSPENSION 30 ML CUP PO PRN; +MENTHOL/PHENOL 1 EACH UD MM PRN; +P-EPHED 60MG/TRIPROLIDI 2.5MG TABLET PO PRN; +guaiFENesin 200 MG/10 ML 10 ML UNIT-DOSE CUPS PO PRN
[2018-10-24] MEDS: THIAMINE HCL 100 MG TABLET (FP) PO SCH (21:15)
[2018-10-24] MEDS: MELATONIN 5 MG TABLETS PO PRN (21:15)
[2018-10-24] MEDS: QUEtiapine FUMARATE 200 MG TABLET PO SCH (21:15)
[2018-10-25] MEDS: PRENATAL VITAMINS W/ FOLIC ACID TABLET (FP) PO SCH (10:11)
[2018-10-25] MEDS: SERTRALINE HCL 50 MG TABLET (FP) PO SCH (10:12)
--- NOTE | 2018-10-25 15:59 | PN ---
S Progress Note Note: pT IS A NEW ADMIT TO REHAB FROM [address] [place] [address] ON 10/24/18. PT IS C/O RIGHT SHOULDER AND HIP/SIDE PAIN X 2 MONTHS. PT AMBULATES WITH NO DIFFICULTY. Vital Signs - 24 hr 10/24/18 10/25/18 10/25/18 20:53 01:58 03:30 Temperature 98.3 F Pulse Rate 68 Respiratory 20 18 18 Rate Blood Pressure 128/80 10/25/18 06:32 Temperature 98 F Pulse Rate 70 Respiratory 18 Rate Blood Pressure 95/60 LIMITED P/E: EXTREMITIES:ACTIVE ROM ALL JOINTS. NO DEFICIT NOTED. A/P: SHOULDER/BACK PAIN MOTRIN PRN ROBAXIN 500 MG PO TID PRN INCREASE PO FLUIDS.
[2018-10-25] MEDS: METHOCARBAMOL 500 MG TABLET PO PRN (17:43)
[2018-10-25] MEDS: IBUPROFEN 400 MG TABLET (FP) PO PRN (17:43)
[2018-10-25] MEDS: QUEtiapine FUMARATE 200 MG TABLET PO SCH (21:10)
[2018-10-25] MEDS: THIAMINE HCL 100 MG TABLET (FP) PO SCH (21:10)
[2018-10-25] MEDS: MELATONIN 5 MG TABLETS PO PRN (21:10)
[2018-10-25] MEDS ORDERED: METHOCARBAMOL 500 MG TABLET PO SCH (22:00)
[2018-10-26] MEDS: IBUPROFEN 400 MG TABLET (FP) PO PRN (09:55)
[2018-10-26] MEDS: PRENATAL VITAMINS W/ FOLIC ACID TABLET (FP) PO SCH (09:56)
[2018-10-26] MEDS: SERTRALINE HCL 50 MG TABLET (FP) PO SCH (09:56)
[2018-10-26] MEDS: METHOCARBAMOL 500 MG TABLET PO PRN (09:56)
[2018-10-26] MEDS: THIAMINE HCL 100 MG TABLET (FP) PO SCH (21:08)
[2018-10-26] MEDS: QUEtiapine FUMARATE 200 MG TABLET PO SCH (21:08)
[2018-10-26] MEDS: MELATONIN 5 MG TABLETS PO PRN (21:08)
[2018-10-27] MEDS: SERTRALINE HCL 50 MG TABLET (FP) PO SCH (10:02)
[2018-10-27] MEDS: PRENATAL VITAMINS W/ FOLIC ACID TABLET (FP) PO SCH (10:02)
[2018-10-27] MEDS: IBUPROFEN 400 MG TABLET (FP) PO PRN (18:56)
[2018-10-27] MEDS: METHOCARBAMOL 500 MG TABLET PO PRN (18:57)
[2018-10-27] MEDS: QUEtiapine FUMARATE 200 MG TABLET PO SCH (21:14)
[2018-10-27] MEDS: MELATONIN 5 MG TABLETS PO PRN (21:14)
[2018-10-27] MEDS: THIAMINE HCL 100 MG TABLET (FP) PO SCH (21:14)
[2018-10-28] MEDS: PRENATAL VITAMINS W/ FOLIC ACID TABLET (FP) PO SCH (10:05)
[2018-10-28] MEDS: SERTRALINE HCL 50 MG TABLET (FP) PO SCH (10:05)
[2018-10-28] MEDS: THIAMINE HCL 100 MG TABLET (FP) PO SCH (21:12)
[2018-10-28] MEDS: QUEtiapine FUMARATE 200 MG TABLET PO SCH (21:12)
[2018-10-28] MEDS: MELATONIN 5 MG TABLETS PO PRN (21:14)
[2018-10-29] MEDS: PRENATAL VITAMINS W/ FOLIC ACID TABLET (FP) PO SCH (09:50)
[2018-10-29] MEDS: SERTRALINE HCL 50 MG TABLET (FP) PO SCH (09:50)
[2018-10-29] MEDS: METHOCARBAMOL 500 MG TABLET PO PRN (17:32)
[2018-10-29] MEDS: IBUPROFEN 400 MG TABLET (FP) PO PRN (17:32)
[2018-10-29] MEDS: MELATONIN 5 MG TABLETS PO PRN (21:45)
[2018-10-29] MEDS: QUEtiapine FUMARATE 200 MG TABLET PO SCH (21:45)
[2018-10-29] MEDS: THIAMINE HCL 100 MG TABLET (FP) PO SCH (21:45)
[2018-10-30] MEDS: PRENATAL VITAMINS W/ FOLIC ACID TABLET (FP) PO SCH (09:43)
[2018-10-30] MEDS: SERTRALINE HCL 50 MG TABLET (FP) PO SCH (09:43)
[2018-10-30] MEDS: METHOCARBAMOL 500 MG TABLET PO PRN (13:32)
[2018-10-30] MEDS: IBUPROFEN 400 MG TABLET (FP) PO PRN (13:32)
[2018-10-30] MEDS: QUEtiapine FUMARATE 200 MG TABLET PO SCH (21:07)
[2018-10-30] MEDS: THIAMINE HCL 100 MG TABLET (FP) PO SCH (21:07)
[2018-10-30] MEDS: MELATONIN 5 MG TABLETS PO PRN (21:08)
[2018-10-31] MEDS: PRENATAL VITAMINS W/ FOLIC ACID TABLET (FP) PO SCH (09:44)
[2018-10-31] MEDS: SERTRALINE HCL 50 MG TABLET (FP) PO SCH (09:44)
[2018-10-31] MEDS: IBUPROFEN 400 MG TABLET (FP) PO PRN (11:47)
[2018-10-31] MEDS: METHOCARBAMOL 500 MG TABLET PO PRN (12:45)
[2018-10-31] MEDS: THIAMINE HCL 100 MG TABLET (FP) PO SCH (21:00)
[2018-10-31] MEDS: QUEtiapine FUMARATE 200 MG TABLET PO SCH (21:00)
[2018-10-31] MEDS: MELATONIN 5 MG TABLETS PO PRN (21:00)
[2018-11-01] MEDS: IBUPROFEN 400 MG TABLET (FP) PO PRN ×2 (09:57→19:09)
[2018-11-01] MEDS: PRENATAL VITAMINS W/ FOLIC ACID TABLET (FP) PO SCH (09:57)
[2018-11-01] MEDS: SERTRALINE HCL 50 MG TABLET (FP) PO SCH (09:58)
[2018-11-01] MEDS: METHOCARBAMOL 500 MG TABLET PO PRN ×2 (09:58→19:09)
[2018-11-01] MEDS: MELATONIN 5 MG TABLETS PO PRN (21:01)
[2018-11-01] MEDS: THIAMINE HCL 100 MG TABLET (FP) PO SCH (21:01)
[2018-11-01] MEDS: QUEtiapine FUMARATE 200 MG TABLET PO SCH (21:01)
[2018-11-02] MEDS: SERTRALINE HCL 50 MG TABLET (FP) PO SCH (09:45)
[2018-11-02] MEDS: METHOCARBAMOL 500 MG TABLET PO PRN ×2 (09:45→18:09)
[2018-11-02] MEDS: PRENATAL VITAMINS W/ FOLIC ACID TABLET (FP) PO SCH (09:45)
[2018-11-02] MEDS: IBUPROFEN 400 MG TABLET (FP) PO PRN ×2 (09:59→18:09)
[2018-11-02] MEDS: MELATONIN 5 MG TABLETS PO PRN (21:12)
[2018-11-02] MEDS: THIAMINE HCL 100 MG TABLET (FP) PO SCH (21:12)
[2018-11-02] MEDS: QUEtiapine FUMARATE 200 MG TABLET PO SCH (21:12)
[2018-11-03] MEDS: METHOCARBAMOL 500 MG TABLET PO PRN (07:16)
[2018-11-03] MEDS: IBUPROFEN 400 MG TABLET (FP) PO PRN (07:17)
[2018-11-03] MEDS: PRENATAL VITAMINS W/ FOLIC ACID TABLET (FP) PO SCH (09:55)
[2018-11-03] MEDS: SERTRALINE HCL 50 MG TABLET (FP) PO SCH (09:55)
[2018-11-03] MEDS: QUEtiapine FUMARATE 200 MG TABLET PO SCH (21:08)
[2018-11-03] MEDS: THIAMINE HCL 100 MG TABLET (FP) PO SCH (21:08)
[2018-11-03] MEDS: MELATONIN 5 MG TABLETS PO PRN (21:08)
[2018-11-04] MEDS: IBUPROFEN 400 MG TABLET (FP) PO PRN ×2 (08:33→18:05)
[2018-11-04] MEDS: METHOCARBAMOL 500 MG TABLET PO PRN ×2 (08:34→18:07)
[2018-11-04] MEDS: SERTRALINE HCL 50 MG TABLET (FP) PO SCH (10:02)
[2018-11-04] MEDS: PRENATAL VITAMINS W/ FOLIC ACID TABLET (FP) PO SCH (10:02)
--- NOTE | 2018-11-04 14:34 | PN ---
[facility] Progress Note Note: Patient is discharged today. Scripts for30 days of medications(Zoloft 100 mg/day , Seroquel 200 mg/hs) are electronically transmitted to [facility] at [phone] [place] [address]
[2018-11-04] MEDS: THIAMINE HCL 100 MG TABLET (FP) PO SCH (21:06)
[2018-11-04] MEDS: MELATONIN 5 MG TABLETS PO PRN (21:06)
[2018-11-04] MEDS: QUEtiapine FUMARATE 200 MG TABLET PO SCH (21:06)
[2018-11-05] MEDS: PRENATAL VITAMINS W/ FOLIC ACID TABLET (FP) PO SCH (09:41)
[2018-11-05] MEDS: SERTRALINE HCL 50 MG TABLET (FP) PO SCH (09:41)
[2018-11-05] MEDS: METHOCARBAMOL 500 MG TABLET PO PRN (09:41)
[2018-11-05] MEDS: IBUPROFEN 400 MG TABLET (FP) PO PRN (13:01)
[2018-11-05] MEDS: THIAMINE HCL 100 MG TABLET (FP) PO SCH (21:09)
[2018-11-05] MEDS: MELATONIN 5 MG TABLETS PO PRN (21:09)
[2018-11-05] MEDS: QUEtiapine FUMARATE 200 MG TABLET PO SCH (21:09)
[2018-11-06] MEDS: IBUPROFEN 400 MG TABLET (FP) PO PRN ×2 (08:09→20:10)
[2018-11-06] MEDS: METHOCARBAMOL 500 MG TABLET PO PRN ×2 (08:10→20:10)
[2018-11-06] MEDS: SERTRALINE HCL 50 MG TABLET (FP) PO SCH (10:01)
[2018-11-06] MEDS: PRENATAL VITAMINS W/ FOLIC ACID TABLET (FP) PO SCH (10:01)
[2018-11-06] MEDS: MELATONIN 5 MG TABLETS PO PRN (21:12)
[2018-11-06] MEDS: QUEtiapine FUMARATE 200 MG TABLET PO SCH (21:12)
[2018-11-06] MEDS: THIAMINE HCL 100 MG TABLET (FP) PO SCH (21:12)
[2018-11-07] MEDS: PRENATAL VITAMINS W/ FOLIC ACID TABLET (FP) PO SCH (10:06)
[2018-11-07] MEDS: IBUPROFEN 400 MG TABLET (FP) PO PRN (10:06)
[2018-11-07] MEDS: SERTRALINE HCL 50 MG TABLET (FP) PO SCH (10:06)
[2018-11-07] MEDS: METHOCARBAMOL 500 MG TABLET PO PRN (10:06)
--- NOTE | 2018-11-07 15:14 | DS ---
[facility] Rehab Discharge Summary - [facility] Rehab Discharge Summary Admission Date: 10/24/18 Discharge Date: 11/08/18 - History Present History: Alcohol dependence Additional Comments: Pt is a 48 y/o male with a hx of alcohol dependence admitted to rehab. Pt completed program, scheduled for discharge on 11/08/18 and participated actively in treatment. Pt agreed to follow up with his primary care provider, Dr. Vikas Franco and [facility] for Mental health mangement. Pertinent Past History: Arthritis Depression - Discharge Physical Exam Vital Signs: General:Alert o x 3. Heent:Normocephalic,cherie,eomi,hearing grossly normal Cardiac:s1 s2, rrr Lungs:cta,lata. Abdomen:soft,nt,nd,+bs Extremities:no edema,cyanosis, Full ROM all limbs. Vital Signs Temperature 98.0 F 11/07/18 07:06 Pulse Rate 73 11/07/18 07:06 Respiratory Rate 18 11/07/18 07:06 Blood Pressure 113/70 11/07/18 07:06 O2 Sat by Pulse Oximetry (%) Pertinent Admission Physical Exam Findings: unremakable - Treatment Discharge Condition: Discharge condition good Hospital Course: Rehabilitated safely, tolerated treatment well and accepted aftercare referral - Medication Discharge Medications: Ambulatory Orders Quetiapine Fumarate [Seroquel -] 200 mg PO HS #30 tablet 11/04/18 Sertraline HCl [Zoloft] 100 mg PO DAILY #30 tablet 11/04/18 - Medication-Assisted Treatment (MAT) Medication-Assisted Treatment (MAT): No - Discharge Instructions Diet, activity, other medical instructions: Diet:Regular Activity: OOB,Ad Mariela Other medical instructions:Follow up with primary care with Dr. Vikas Franco at [address] [place] [address] within 1 week after discharge. Follow up with Dr. Zamora for Mental health at [facility] on [place], [place] Referred to [facility] on [address] [place], [place] for CD aftercare. - Diagnosis (1) Alcohol dependence Status: Chronic Qualifiers: Substance use status: uncomplicated Qualified Code(s): F10.20 - Alcohol dependence, uncomplicated (2) Nicotine dependence Status: Chronic Qualifiers: Nicotine product type: cigarettes Substance use status: uncomplicated Qualified Code(s): F17.210 - Nicotine dependence, cigarettes, uncomplicated (3) Arthritis Status: Chronic (4) Chronic back pain Status: Chronic Qualifiers: Back pain location: low back pain Back pain laterality: unspecified (5) Hyperlipidemia Status: Chronic Qualifiers: Hyperlipidemia type: pure hypercholesterolemia Qualified Code(s): E78.00 - Pure hypercholesterolemia, unspecified; E78.0 - Pure hypercholesterolemia (6) Old cerebrovascular accident (CVA) without late effect Status: Chronic (7) Alcohol related seizure Status: Suspected (8) History of syphilis Status: Resolved - Follow-up Referral Minutes to complete discharge: 25 - AMA Did Patient Leave Against Medical Advice: No
[2018-11-07] MEDS: QUEtiapine FUMARATE 200 MG TABLET PO SCH (21:14)
[2018-11-07] MEDS: MELATONIN 5 MG TABLETS PO PRN (21:15)
[2018-11-07] MEDS: THIAMINE HCL 100 MG TABLET (FP) PO SCH (21:15)
[2018-11-08 06:55] VITALS: BP 125/78; PULSE 66; TEMP 97.7
[2018-11-08] MEDS: PRENATAL VITAMINS W/ FOLIC ACID TABLET (FP) PO SCH (09:17)
[2018-11-08] MEDS: SERTRALINE HCL 50 MG TABLET (FP) PO SCH (09:17)
[2018-11-08] MEDS: IBUPROFEN 400 MG TABLET (FP) PO PRN (09:18)
[2018-11-08] MEDS: METHOCARBAMOL 500 MG TABLET PO PRN (09:18)
== END 2018-11-08 10:30 | disposition home or self-care (01) | DRG 772 ==
LOC: YASAS 19:33 → Y5N 19:34
PROVIDERS: ADMIT Neuromusculoskeletal Medicine & OMM; ATTEND Neuromusculoskeletal Medicine & OMM
PROC: HZ42ZZZ Group Counseling for Substance Abuse Treatment, Cognitive-Behavioral (ICD-10-PCS; principal; 2018-10-24)
DX: F10.20 Alcohol dependence, uncomplicated (principal); F17.210 Nicotine dependence, cigarettes, uncomplicated; E78.5 Hyperlipidemia, unspecified; M54.5 Low back pain; G89.29 Other chronic pain; M19.90 Unspecified osteoarthritis, unspecified site; Z86.73 Personal history of transient ischemic attack (TIA), and cerebral infarction without residual deficits; Z86.69 Personal history of other diseases of the nervous system and sense organs; Z87.438 Personal history of other diseases of male genital organs

== ENCOUNTER 2020-02-24 11:06 | Inpatient (IN) | payer OTHER ==
[2020-02-24] MEDS ORDERED: MENTHOL/PHENOL 1 EACH UD MM PRN (13:09)
[2020-02-24] MEDS ORDERED: MAGNESIUM CITRATE 300 ML BOTTLE PO PRN (13:09)
[2020-02-24] MEDS ORDERED: MAGNESIUM HYDROX 2400MG/30ML ORAL SUSPENSION 30 ML CUP PO PRN (13:09)
[2020-02-24] MEDS ORDERED: MAG HYDROX/AL HYDROX/SIMETH 30 ML UNIT-DOSE CUP PO PRN (13:09)
[2020-02-24] MEDS ORDERED: BISMUTH SUBSALICYLATE 524 MG/30 ML UD PO PRN (13:09)
[2020-02-24] MEDS ORDERED: ONDANSETRON *ODT* 4 MG TABLET SL PRN (13:09)
[2020-02-24] MEDS ORDERED: NICOTINE POLACRILEX 2 MG GUM BUC PRN (13:09)
[2020-02-24 13:29] VITALS: BMI 26.2
[2020-02-24] MEDS: IBUPROFEN 400 MG TABLET (FP) PO PRN (14:22)
[2020-02-24] MEDS: METHOCARBAMOL 500 MG TABLET PO PRN (14:23)
[2020-02-24] MEDS: chlordiazePOXIDE HCL 25 MG CAPSULE PO PRN ×2 (14:23→20:13)
[2020-02-24] MEDS: hydrOXYzine PAMOATE 25 MG CAPSULE (FP) PO SCH ×3 (14:26→22:03)
[2020-02-24] MEDS: chlordiazePOXIDE HCL 25 MG CAPSULE PO SCH ×2 (17:02→22:03)
[2020-02-24] MEDS: THIAMINE HCL 100 MG TABLET (FP) PO SCH (22:03)
[2020-02-24] MEDS: MELATONIN 5 MG TABLETS PO SCH (22:03)
[2020-02-25] MEDS: chlordiazePOXIDE HCL 25 MG CAPSULE PO PRN ×2 (00:17→19:22)
[2020-02-25] MEDS: chlordiazePOXIDE HCL 25 MG CAPSULE PO SCH ×4 (05:13→22:03)
[2020-02-25] MEDS: hydrOXYzine PAMOATE 25 MG CAPSULE (FP) PO SCH ×5 (05:13→22:04)
[2020-02-25] MEDS: ACETAMINOPHEN 325 MG TABLET (FP) PO PRN (08:39)
[2020-02-25 09:29] LABS: HEMATOCRIT 36.3 % (35.4-49); HEMOGLOBIN 12.1 GM/dL (11.7-16.9); MCH 32.2 pg (25.7-33.7); MCHC 33.3 g/dl (32.0-35.9); MEAN CELL VOLUME 96.6 fl (80-96); MEAN PLT VOLUME 8.3 fl (7.5-11.1); PLATELET COUNT 104 K/MM3 (134-434); POTASSIUM 3.3 mmol/L (3.5-5.1); RBC 3.76 M/mm3 (4.00-5.60); RDW 16.3 % (11.9-15.9); WHITE BLOOD COUNT 7.4 K/mm3 (4.0-10.0)
[2020-02-25 10:00] LABS: ALBUMIN 2.9 g/dl (3.4-5.0); BLOOD UREA NITROGEN 11.4 mg/dL (7-18)
[2020-02-25 10:04] LABS: CREATININE 0.8 mg/dL (0.55-1.3)
[2020-02-25] MEDS: NICOTINE 21 MG/24 HOURS TOPICAL PATCH TD SCH (10:04)
[2020-02-25] MEDS: PRENATAL VITAMINS W/ FOLIC ACID TABLET (FP) PO SCH (10:04)
[2020-02-25 10:05] LABS: BILIRUBIN,TOTAL 1.1 mg/dL (0.2-1); TOT PROT 6.4 g/dl (6.4-8.2)
[2020-02-25] MEDS: METHOCARBAMOL 500 MG TABLET PO PRN (13:45)
[2020-02-25] MEDS ORDERED: POTASSIUM CHLORIDE TABS 20 MEQ TABLET.ER (FP) PO ONE ×2 (14:00→20:00)
[2020-02-25] MEDS: IBUPROFEN 400 MG TABLET (FP) PO PRN (19:24)
[2020-02-25] MEDS: MELATONIN 5 MG TABLETS PO SCH (22:03)
[2020-02-25] MEDS: QUEtiapine FUMARATE 100 MG TABLET (FP) PO SCH (22:03)
[2020-02-25] MEDS: THIAMINE HCL 100 MG TABLET (FP) PO SCH (22:03)
[2020-02-25] MEDS: CALCIUM CARBONATE 650 MG TABLET PO SCH (23:55)
[2020-02-26] MEDS: chlordiazePOXIDE HCL 25 MG CAPSULE PO SCH ×4 (04:46→22:27)
[2020-02-26] MEDS: METHOCARBAMOL 500 MG TABLET PO PRN (04:49)
[2020-02-26] MEDS: hydrOXYzine PAMOATE 25 MG CAPSULE (FP) PO SCH ×5 (06:32→22:28)
[2020-02-26] MEDS: ACETAMINOPHEN 325 MG TABLET (FP) PO PRN ×2 (09:43→22:26)
[2020-02-26] MEDS: SERTRALINE HCL 50 MG TABLET (FP) PO SCH (09:43)
[2020-02-26] MEDS: NICOTINE 21 MG/24 HOURS TOPICAL PATCH TD SCH (09:44)
[2020-02-26] MEDS: PRENATAL VITAMINS W/ FOLIC ACID TABLET (FP) PO SCH (09:46)
[2020-02-26] MEDS: CALCIUM CARBONATE 650 MG TABLET PO SCH ×2 (09:46→22:27)
[2020-02-26] MEDS ORDERED: PATIENT'S OWN MEDICATION (NON-FORMULARY) (Sertraline Hcl [Zoloft] 100 MG Tablet) PO SCH (10:00)
[2020-02-26 11:24] LABS: HEMATOCRIT 34.6 % (35.4-49); HEMOGLOBIN 11.5 GM/dL (11.7-16.9); MCH 32.2 pg (25.7-33.7); MCHC 33.1 g/dl (32.0-35.9); MEAN CELL VOLUME 97.3 fl (80-96); MEAN PLT VOLUME 8.8 fl (7.5-11.1); PLATELET COUNT 83 K/MM3 (134-434); RBC 3.56 M/mm3 (4.00-5.60); RDW 16.3 % (11.9-15.9); WHITE BLOOD COUNT 8.3 K/mm3 (4.0-10.0)
[2020-02-26 11:32] LABS: POTASSIUM 3.9 mmol/L (3.5-5.1)
[2020-02-26] MEDS: FLUTICASONE PROP 0.05% 16 GM NASAL SPRAY NS SCH ×2 (12:43→22:27)
[2020-02-26] MEDS: AMOXICILLIN 500 MG CAPSULE (FP) PO SCH ×2 (13:57→22:27)
[2020-02-26] MEDS: THIAMINE HCL 100 MG TABLET (FP) PO SCH (22:27)
[2020-02-26] MEDS: MELATONIN 5 MG TABLETS PO SCH (22:27)
[2020-02-26] MEDS: QUEtiapine FUMARATE 100 MG TABLET (FP) PO SCH (22:27)
[2020-02-27] MEDS ORDERED: chlordiazePOXIDE HCL 10 MG CAPSULE PO PRN
[2020-02-27] MEDS: chlordiazePOXIDE HCL 10 MG CAPSULE PO SCH ×4 (05:14→23:40)
[2020-02-27] MEDS: hydrOXYzine PAMOATE 25 MG CAPSULE (FP) PO SCH ×5 (05:14→22:12)
[2020-02-27] MEDS: AMOXICILLIN 500 MG CAPSULE (FP) PO SCH ×3 (05:14→22:13)
[2020-02-27] MEDS: PRENATAL VITAMINS W/ FOLIC ACID TABLET (FP) PO SCH (11:03)
[2020-02-27] MEDS: SERTRALINE HCL 50 MG TABLET (FP) PO SCH (11:04)
[2020-02-27] MEDS: FLUTICASONE PROP 0.05% 16 GM NASAL SPRAY NS SCH ×2 (11:04→22:13)
[2020-02-27] MEDS: NICOTINE 21 MG/24 HOURS TOPICAL PATCH TD SCH (11:04)
[2020-02-27] MEDS: CALCIUM CARBONATE 650 MG TABLET PO SCH ×2 (11:05→22:13)
[2020-02-27] MEDS: QUEtiapine FUMARATE 100 MG TABLET (FP) PO SCH (22:11)
[2020-02-27] MEDS: THIAMINE HCL 100 MG TABLET (FP) PO SCH (22:12)
[2020-02-27] MEDS: MELATONIN 5 MG TABLETS PO SCH (22:13)
[2020-02-28] MEDS: AMOXICILLIN 500 MG CAPSULE (FP) PO SCH ×3 (05:12→22:02)
[2020-02-28] MEDS: chlordiazePOXIDE HCL 10 MG CAPSULE PO SCH ×2 (05:13→17:52)
[2020-02-28] MEDS: hydrOXYzine PAMOATE 25 MG CAPSULE (FP) PO SCH ×5 (05:13→22:02)
[2020-02-28] MEDS: SERTRALINE HCL 50 MG TABLET (FP) PO SCH (10:24)
[2020-02-28] MEDS: CALCIUM CARBONATE 650 MG TABLET PO SCH ×2 (10:24→22:02)
[2020-02-28] MEDS: FLUTICASONE PROP 0.05% 16 GM NASAL SPRAY NS SCH ×2 (10:24→21:32)
[2020-02-28] MEDS: NICOTINE 21 MG/24 HOURS TOPICAL PATCH TD SCH (10:27)
[2020-02-28] MEDS: PRENATAL VITAMINS W/ FOLIC ACID TABLET (FP) PO SCH (10:27)
[2020-02-28] MEDS: ACETAMINOPHEN 325 MG TABLET (FP) PO PRN (12:27)
[2020-02-28 14:52] LABS: EPI CELLS 7 /uL (0-25.1); HYALINE CASTS 1 /uL (0-3.1); URINE APPEARANCE CLEAR; URINE BACTERIA 160 /uL (0-1359); URINE BILIRUBIN NEGATIVE (NEGATIVE); URINE COLOR YELLOW; URINE GLUCOSE (UA) NEGATIVE (NEGATIVE); URINE KETONE NEGATIVE (NEGATIVE); URINE LEUK ESTERASE 3+ (NEGATIVE); URINE NITRITE NEGATIVE (NEGATIVE); URINE PROTEIN NEGATIVE (NEGATIVE); URINE RBC 20 /uL (0-23.9); URINE WBC 201 /uL (0-25.8)
[2020-02-28] MEDS: IBUPROFEN 400 MG TABLET (FP) PO PRN (17:51)
[2020-02-28] MEDS: MELATONIN 5 MG TABLETS PO SCH (22:01)
[2020-02-28] MEDS: THIAMINE HCL 100 MG TABLET (FP) PO SCH (22:02)
[2020-02-28] MEDS: QUEtiapine FUMARATE 100 MG TABLET (FP) PO SCH (22:02)
[2020-02-29] MEDS ORDERED: chlordiazePOXIDE HCL 10 MG CAPSULE PO ONE (05:00)
[2020-02-29] MEDS: AMOXICILLIN 500 MG CAPSULE (FP) PO SCH (06:08)
[2020-02-29] MEDS: hydrOXYzine PAMOATE 25 MG CAPSULE (FP) PO SCH ×2 (06:08→09:28)
[2020-02-29] MEDS: NICOTINE 21 MG/24 HOURS TOPICAL PATCH TD SCH (09:28)
[2020-02-29] MEDS: CALCIUM CARBONATE 650 MG TABLET PO SCH (09:28)
[2020-02-29] MEDS: SERTRALINE HCL 50 MG TABLET (FP) PO SCH (09:28)
[2020-02-29] MEDS: PRENATAL VITAMINS W/ FOLIC ACID TABLET (FP) PO SCH (09:29)
[2020-02-29] MEDS: FLUTICASONE PROP 0.05% 16 GM NASAL SPRAY NS SCH (09:29)
[2020-02-29] MEDS: IBUPROFEN 400 MG TABLET (FP) PO PRN (09:29)
[2020-02-29 10:43] VITALS: BP 108/61; PULSE 80; TEMP 98.4
[2020-02-29] MEDS ORDERED: NITROFURANTOIN MACROCRYSTAL 50 MG CAPSULE (FP) PO SCH (12:00)
== END 2020-02-29 11:15 | disposition other institution (70) | DRG 775 ==
LOC: YASAS 11:06 → Y6N 13:26
PROVIDERS: ADMIT Allergy & Immunology; ATTEND Allergy & Immunology
PROC: HZ2ZZZZ Detoxification Services for Substance Abuse Treatment (ICD-10-PCS; principal; 2020-02-24)
DX: F10.230 Alcohol dependence with withdrawal, uncomplicated (principal); F10.220 Alcohol dependence with intoxication, uncomplicated; F17.210 Nicotine dependence, cigarettes, uncomplicated; F19.24 Other psychoactive substance dependence with psychoactive substance-induced mood disorder; F19.282 Other psychoactive substance dependence with psychoactive substance-induced sleep disorder; F31.9 Bipolar disorder, unspecified; F51.05 Insomnia due to other mental disorder; E88.09 Other disorders of plasma-protein metabolism, not elsewhere classified; E83.51 Hypocalcemia; E78.5 Hyperlipidemia, unspecified; R74.01 Elevation of levels of liver transaminase levels; R73.03 Prediabetes; M54.5 Low back pain; G89.29 Other chronic pain; G47.00 Insomnia, unspecified; N39.0 Urinary tract infection, site not specified; J31.0 Chronic rhinitis; M19.90 Unspecified osteoarthritis, unspecified site; D69.6 Thrombocytopenia, unspecified; Z86.11 Personal history of tuberculosis; Z86.73 Personal history of transient ischemic attack (TIA), and cerebral infarction without residual deficits; Z86.69 Personal history of other diseases of the nervous system and sense organs; Z87.438 Personal history of other diseases of male genital organs; Z56.0 Unemployment, unspecified
CPT/HCPCS: 36415; 71046-TC-FY; 80053; 81003; 82947; 83036; 84132; 85027; 86780; C9803; U0003

== ENCOUNTER 2020-02-29 11:26 | Inpatient (IN) | payer OTHER ==
[2020-02-29] MEDS ORDERED: NICOTINE POLACRILEX 2 MG GUM BUC PRN (14:14)
[2020-02-29] MEDS ORDERED: MAG HYDROX/AL HYDROX/SIMETH 30 ML UNIT-DOSE CUP PO PRN (14:14)
[2020-02-29] MEDS ORDERED: LOPERAMIDE HCL 2 MG CAPSULE PO PRN (14:14)
[2020-02-29] MEDS ORDERED: MENTHOL/PHENOL 1 EACH UD MM PRN (14:14)
[2020-02-29] MEDS ORDERED: P-EPHED 60MG/TRIPROLIDI 2.5MG TABLET PO PRN (14:14)
[2020-02-29] MEDS ORDERED: guaiFENesin 200 MG/10 ML 10 ML UNIT-DOSE CUPS PO PRN (14:14)
[2020-02-29] MEDS ORDERED: MAGNESIUM HYDROX 2400MG/30ML ORAL SUSPENSION 30 ML CUP PO PRN (14:14)
[2020-02-29] MEDS ORDERED: MAGNESIUM CITRATE 300 ML BOTTLE PO PRN (14:14)
[2020-02-29] MEDS: NITROFURANTOIN MACROCRYSTAL 50 MG CAPSULE (FP) PO SCH (18:45)
[2020-02-29] MEDS: THIAMINE HCL 100 MG TABLET (FP) PO SCH (21:07)
[2020-02-29] MEDS: MELATONIN 5 MG TABLETS PO SCH (21:07)
[2020-02-29] MEDS: QUEtiapine FUMARATE 100 MG TABLET (FP) PO SCH (21:08)
[2020-03-01] MEDS: NITROFURANTOIN MACROCRYSTAL 50 MG CAPSULE (FP) PO SCH ×4 (00:05→17:32)
[2020-03-01] MEDS: hydrOXYzine PAMOATE 25 MG CAPSULE (FP) PO PRN ×3 (07:08→21:46)
[2020-03-01] MEDS: NICOTINE 21 MG/24 HOURS TOPICAL PATCH TD SCH (09:47)
[2020-03-01] MEDS: PRENATAL VITAMINS W/ FOLIC ACID TABLET (FP) PO SCH (09:47)
[2020-03-01] MEDS: FLUTICASONE PROP 0.05% 16 GM NASAL SPRAY NS PRN ×2 (09:47→17:32)
[2020-03-01] MEDS: SERTRALINE HCL 50 MG TABLET (FP) PO SCH (09:47)
[2020-03-01] MEDS ORDERED: PNEUMOC 13-VAL CONJ-DIP CRM/PF 0.5 ML DISP.SYRIN IM ONE (12:00)
[2020-03-01] MEDS: THIAMINE HCL 100 MG TABLET (FP) PO SCH (21:46)
[2020-03-01] MEDS: MELATONIN 5 MG TABLETS PO SCH (21:46)
[2020-03-01] MEDS: QUEtiapine FUMARATE 100 MG TABLET (FP) PO SCH (21:46)
[2020-03-02] MEDS: NITROFURANTOIN MACROCRYSTAL 50 MG CAPSULE (FP) PO SCH ×5 (00:10→23:49)
[2020-03-02] MEDS: IBUPROFEN 400 MG TABLET (FP) PO PRN (09:47)
[2020-03-02] MEDS: hydrOXYzine PAMOATE 25 MG CAPSULE (FP) PO PRN (09:47)
[2020-03-02] MEDS: NICOTINE 21 MG/24 HOURS TOPICAL PATCH TD SCH (09:47)
[2020-03-02] MEDS: SERTRALINE HCL 50 MG TABLET (FP) PO SCH (09:47)
[2020-03-02] MEDS: PRENATAL VITAMINS W/ FOLIC ACID TABLET (FP) PO SCH (09:47)
[2020-03-02] MEDS: MELATONIN 5 MG TABLETS PO SCH (21:19)
[2020-03-02] MEDS: THIAMINE HCL 100 MG TABLET (FP) PO SCH (21:19)
[2020-03-02] MEDS: FLUTICASONE PROP 0.05% 16 GM NASAL SPRAY NS PRN (21:19)
[2020-03-02] MEDS: QUEtiapine FUMARATE 100 MG TABLET (FP) PO SCH (21:19)
[2020-03-03] MEDS: NITROFURANTOIN MACROCRYSTAL 50 MG CAPSULE (FP) PO SCH ×3 (06:18→17:43)
[2020-03-03] MEDS: PRENATAL VITAMINS W/ FOLIC ACID TABLET (FP) PO SCH (10:04)
[2020-03-03] MEDS: SERTRALINE HCL 50 MG TABLET (FP) PO SCH (10:04)
[2020-03-03] MEDS: NICOTINE 21 MG/24 HOURS TOPICAL PATCH TD SCH (10:04)
[2020-03-03] MEDS: hydrOXYzine PAMOATE 25 MG CAPSULE (FP) PO PRN (17:43)
[2020-03-03] MEDS: FLUTICASONE PROP 0.05% 16 GM NASAL SPRAY NS PRN ×2 (18:37→22:03)
[2020-03-03] MEDS: QUEtiapine FUMARATE 100 MG TABLET (FP) PO SCH (22:05)
[2020-03-03] MEDS: MELATONIN 5 MG TABLETS PO SCH (22:05)
[2020-03-03] MEDS: THIAMINE HCL 100 MG TABLET (FP) PO SCH (22:05)
[2020-03-04] MEDS: NITROFURANTOIN MACROCRYSTAL 50 MG CAPSULE (FP) PO SCH ×5 (01:08→23:28)
[2020-03-04] MEDS: SERTRALINE HCL 50 MG TABLET (FP) PO SCH (09:35)
[2020-03-04] MEDS: PRENATAL VITAMINS W/ FOLIC ACID TABLET (FP) PO SCH (09:35)
[2020-03-04] MEDS: NICOTINE 21 MG/24 HOURS TOPICAL PATCH TD SCH (09:35)
[2020-03-04] MEDS: hydrOXYzine PAMOATE 25 MG CAPSULE (FP) PO PRN (17:44)
[2020-03-04] MEDS: QUEtiapine FUMARATE 100 MG TABLET (FP) PO SCH (21:11)
[2020-03-04] MEDS: MELATONIN 5 MG TABLETS PO SCH (21:11)
[2020-03-04] MEDS: THIAMINE HCL 100 MG TABLET (FP) PO SCH (21:11)
[2020-03-05] MEDS: NITROFURANTOIN MACROCRYSTAL 50 MG CAPSULE (FP) PO SCH ×3 (07:17→17:28)
[2020-03-05] MEDS: PRENATAL VITAMINS W/ FOLIC ACID TABLET (FP) PO SCH (09:21)
[2020-03-05] MEDS: NICOTINE 21 MG/24 HOURS TOPICAL PATCH TD SCH (09:21)
[2020-03-05] MEDS: SERTRALINE HCL 50 MG TABLET (FP) PO SCH (09:21)
[2020-03-05] MEDS: ACETAMINOPHEN 325 MG TABLET (FP) PO PRN (11:37)
[2020-03-05] MEDS ORDERED: MASKS NR ONE (11:59)
[2020-03-05] MEDS: MELATONIN 5 MG TABLETS PO SCH (21:28)
[2020-03-05] MEDS: THIAMINE HCL 100 MG TABLET (FP) PO SCH (21:28)
[2020-03-05] MEDS: QUEtiapine FUMARATE 100 MG TABLET (FP) PO SCH (21:28)
[2020-03-06] MEDS: NITROFURANTOIN MACROCRYSTAL 50 MG CAPSULE (FP) PO SCH ×2 (00:15→06:05)
[2020-03-06] MEDS: NICOTINE 21 MG/24 HOURS TOPICAL PATCH TD SCH (09:28)
[2020-03-06] MEDS: SERTRALINE HCL 50 MG TABLET (FP) PO SCH (09:28)
[2020-03-06] MEDS: PRENATAL VITAMINS W/ FOLIC ACID TABLET (FP) PO SCH (09:28)
[2020-03-06] MEDS: ACETAMINOPHEN 325 MG TABLET (FP) PO PRN (16:22)
[2020-03-06] MEDS: MELATONIN 5 MG TABLETS PO SCH (21:11)
[2020-03-06] MEDS: THIAMINE HCL 100 MG TABLET (FP) PO SCH (21:11)
[2020-03-06] MEDS: QUEtiapine FUMARATE 100 MG TABLET (FP) PO SCH (21:11)
[2020-03-07] MEDS: PRENATAL VITAMINS W/ FOLIC ACID TABLET (FP) PO SCH (09:41)
[2020-03-07] MEDS: SERTRALINE HCL 50 MG TABLET (FP) PO SCH (09:42)
[2020-03-07] MEDS: hydrOXYzine PAMOATE 25 MG CAPSULE (FP) PO PRN (09:42)
[2020-03-07] MEDS: NICOTINE 21 MG/24 HOURS TOPICAL PATCH TD SCH (09:42)
[2020-03-07] MEDS ORDERED: MASKS NR ONE (10:21)
[2020-03-07] MEDS: ACETAMINOPHEN 325 MG TABLET (FP) PO PRN (14:34)
[2020-03-07] MEDS: QUEtiapine FUMARATE 100 MG TABLET (FP) PO SCH (21:31)
[2020-03-07] MEDS: MELATONIN 5 MG TABLETS PO SCH (21:31)
[2020-03-07] MEDS: THIAMINE HCL 100 MG TABLET (FP) PO SCH (21:32)
[2020-03-08] MEDS: SERTRALINE HCL 50 MG TABLET (FP) PO SCH (09:32)
[2020-03-08] MEDS: PRENATAL VITAMINS W/ FOLIC ACID TABLET (FP) PO SCH (09:32)
[2020-03-08] MEDS: NICOTINE 21 MG/24 HOURS TOPICAL PATCH TD SCH (09:32)
[2020-03-08] MEDS: MELATONIN 5 MG TABLETS PO SCH (21:09)
[2020-03-08] MEDS: THIAMINE HCL 100 MG TABLET (FP) PO SCH (21:10)
[2020-03-08] MEDS: QUEtiapine FUMARATE 100 MG TABLET (FP) PO SCH (21:10)
[2020-03-09] MEDS: SERTRALINE HCL 50 MG TABLET (FP) PO SCH (09:41)
[2020-03-09] MEDS: PRENATAL VITAMINS W/ FOLIC ACID TABLET (FP) PO SCH (09:41)
[2020-03-09] MEDS: NICOTINE 21 MG/24 HOURS TOPICAL PATCH TD SCH (09:42)
[2020-03-09] MEDS: IBUPROFEN 400 MG TABLET (FP) PO PRN (18:25)
[2020-03-09] MEDS: QUEtiapine FUMARATE 100 MG TABLET (FP) PO SCH (21:14)
[2020-03-09] MEDS: MELATONIN 5 MG TABLETS PO SCH (21:14)
[2020-03-09] MEDS: THIAMINE HCL 100 MG TABLET (FP) PO SCH (21:14)
[2020-03-10] MEDS: SERTRALINE HCL 50 MG TABLET (FP) PO SCH (09:21)
[2020-03-10] MEDS: PRENATAL VITAMINS W/ FOLIC ACID TABLET (FP) PO SCH (09:21)
[2020-03-10] MEDS: NICOTINE 21 MG/24 HOURS TOPICAL PATCH TD SCH (09:22)
[2020-03-10] MEDS: ACETAMINOPHEN 325 MG TABLET (FP) PO PRN (18:37)
[2020-03-10] MEDS: QUEtiapine FUMARATE 100 MG TABLET (FP) PO SCH (21:43)
[2020-03-10] MEDS: THIAMINE HCL 100 MG TABLET (FP) PO SCH (21:43)
[2020-03-10] MEDS: MELATONIN 5 MG TABLETS PO SCH (21:53)
[2020-03-11] MEDS: PRENATAL VITAMINS W/ FOLIC ACID TABLET (FP) PO SCH (09:34)
[2020-03-11] MEDS: NICOTINE 21 MG/24 HOURS TOPICAL PATCH TD SCH (09:34)
[2020-03-11] MEDS: SERTRALINE HCL 50 MG TABLET (FP) PO SCH (09:34)
[2020-03-11] MEDS: ACETAMINOPHEN 325 MG TABLET (FP) PO PRN (18:14)
[2020-03-11] MEDS: THIAMINE HCL 100 MG TABLET (FP) PO SCH (21:08)
[2020-03-11] MEDS: QUEtiapine FUMARATE 100 MG TABLET (FP) PO SCH (21:08)
[2020-03-11] MEDS: MELATONIN 5 MG TABLETS PO SCH (21:08)
[2020-03-12] MEDS: PRENATAL VITAMINS W/ FOLIC ACID TABLET (FP) PO SCH (09:23)
[2020-03-12] MEDS: SERTRALINE HCL 50 MG TABLET (FP) PO SCH (09:23)
[2020-03-12] MEDS: NICOTINE 21 MG/24 HOURS TOPICAL PATCH TD SCH (09:23)
[2020-03-12] MEDS: ACETAMINOPHEN 325 MG TABLET (FP) PO PRN (17:09)
[2020-03-12] MEDS: QUEtiapine FUMARATE 100 MG TABLET (FP) PO SCH (21:13)
[2020-03-12] MEDS: THIAMINE HCL 100 MG TABLET (FP) PO SCH (21:13)
[2020-03-12] MEDS: MELATONIN 5 MG TABLETS PO SCH (21:13)
[2020-03-13] MEDS: PRENATAL VITAMINS W/ FOLIC ACID TABLET (FP) PO SCH (09:22)
[2020-03-13] MEDS: NICOTINE 21 MG/24 HOURS TOPICAL PATCH TD SCH (09:22)
[2020-03-13] MEDS: SERTRALINE HCL 50 MG TABLET (FP) PO SCH (09:22)
[2020-03-13] MEDS: ACETAMINOPHEN 325 MG TABLET (FP) PO PRN (16:55)
[2020-03-13] MEDS: MELATONIN 5 MG TABLETS PO SCH (21:08)
[2020-03-13] MEDS: QUEtiapine FUMARATE 100 MG TABLET (FP) PO SCH (21:08)
[2020-03-13] MEDS: THIAMINE HCL 100 MG TABLET (FP) PO SCH (21:08)
[2020-03-14 06:54] VITALS: BP 107/71; PULSE 86; TEMP 97.3
[2020-03-14] MEDS: PRENATAL VITAMINS W/ FOLIC ACID TABLET (FP) PO SCH (09:10)
[2020-03-14] MEDS: NICOTINE 21 MG/24 HOURS TOPICAL PATCH TD SCH (09:10)
[2020-03-14] MEDS: SERTRALINE HCL 50 MG TABLET (FP) PO SCH (09:10)
== END 2020-03-14 09:30 | disposition home or self-care (01) | DRG 772 ==
LOC: YASAS 11:26 → Y5N 11:27
PROVIDERS: ADMIT Allergy & Immunology; ATTEND Allergy & Immunology
PROC: HZ42ZZZ Group Counseling for Substance Abuse Treatment, Cognitive-Behavioral (ICD-10-PCS; principal; 2020-02-29)
DX: F10.20 Alcohol dependence, uncomplicated (principal); E78.5 Hyperlipidemia, unspecified; M19.90 Unspecified osteoarthritis, unspecified site; M54.89 Other dorsalgia; G89.29 Other chronic pain; Z86.73 Personal history of transient ischemic attack (TIA), and cerebral infarction without residual deficits

== ENCOUNTER 2020-04-23 09:24 | Inpatient (IN) | payer OTHER ==
[2020-04-23 10:54] VITALS: BMI 28.9
[2020-04-23] MEDS ORDERED: IBUPROFEN 400 MG TABLET (FP) PO PRN (11:25)
[2020-04-23] MEDS ORDERED: MAG HYDROX/AL HYDROX/SIMETH 30 ML UNIT-DOSE CUP PO PRN (11:25)
[2020-04-23] MEDS ORDERED: ACETAMINOPHEN 325 MG TABLET (FP) PO PRN ×2 (11:25)
[2020-04-23] MEDS ORDERED: BISMUTH SUBSALICYLATE 262 MG/15 ML BTL PO PRN (11:25)
[2020-04-23] MEDS ORDERED: MAGNESIUM CITRATE 300 ML BOTTLE PO PRN (11:25)
[2020-04-23] MEDS ORDERED: MAGNESIUM HYDROX 2400MG/30ML ORAL SUSPENSION 30 ML CUP PO PRN (11:25)
[2020-04-23] MEDS ORDERED: ONDANSETRON *ODT* 4 MG TABLET SL PRN (11:25)
[2020-04-23] MEDS ORDERED: NICOTINE POLACRILEX 2 MG GUM BUC PRN (11:25)
[2020-04-23] MEDS ORDERED: chlordiazePOXIDE HCL 25 MG CAPSULE PO PRN (11:25)
[2020-04-23] MEDS ORDERED: MENTHOL/PHENOL 1 EACH UD MM PRN (11:25)
[2020-04-23] MEDS: METHOCARBAMOL 500 MG TABLET PO PRN (13:49)
[2020-04-23 13:50] LABS: HEMATOCRIT 39.4 % (35.4-49); HEMOGLOBIN 13.3 GM/dL (11.7-16.9); MCH 32.9 pg (25.7-33.7); MCHC 33.7 g/dl (32.0-35.9); MEAN CELL VOLUME 97.7 fl (80-96); MEAN PLT VOLUME 7.7 fl (7.5-11.1); PLATELET COUNT 148 K/MM3 (134-434); RBC 4.03 M/mm3 (4.00-5.60); RDW 17.9 % (11.9-15.9); WHITE BLOOD COUNT 5.5 K/mm3 (4.0-10.0)
[2020-04-23] MEDS: chlordiazePOXIDE HCL 25 MG CAPSULE PO SCH ×3 (13:50→22:20)
[2020-04-23] MEDS: PRENATAL VITAMINS W/ FOLIC ACID TABLET (FP) PO SCH (13:52)
[2020-04-23] MEDS: hydrOXYzine PAMOATE 25 MG CAPSULE (FP) PO SCH ×3 (13:52→22:19)
[2020-04-23] MEDS: NICOTINE 14 MG/24 HOURS TOPICAL PATCH TD SCH (13:53)
[2020-04-23 14:21] LABS: POTASSIUM 3.8 mmol/L (3.5-5.1)
[2020-04-23 14:27] LABS: BLOOD UREA NITROGEN 7.3 mg/dL (7-18)
[2020-04-23 14:28] LABS: CALCIUM 8.8 mg/dL (8.5-10.1)
[2020-04-23 14:32] LABS: CREATININE 0.8 mg/dL (0.55-1.3)
[2020-04-23 14:34] LABS: BILIRUBIN,TOTAL 0.6 mg/dL (0.2-1)
[2020-04-23 15:23] LABS: HIV INTERPRETATION NEGATIVE (NEGATIVE)
[2020-04-23] MEDS: SERTRALINE HCL 50 MG TABLET (FP) PO SCH (15:46)
[2020-04-23] MEDS: THIAMINE HCL 100 MG TABLET (FP) PO SCH (22:18)
[2020-04-23] MEDS: QUEtiapine FUMARATE 100 MG TABLET (FP) PO SCH (22:18)
[2020-04-23] MEDS: MELATONIN 5 MG TABLETS PO SCH (22:19)
[2020-04-24] MEDS: hydrOXYzine PAMOATE 25 MG CAPSULE (FP) PO SCH ×5 (05:36→22:08)
[2020-04-24] MEDS: chlordiazePOXIDE HCL 25 MG CAPSULE PO SCH ×4 (05:36→22:08)
[2020-04-24] MEDS: SERTRALINE HCL 50 MG TABLET (FP) PO SCH (10:51)
[2020-04-24] MEDS: NICOTINE 14 MG/24 HOURS TOPICAL PATCH TD SCH (10:51)
[2020-04-24] MEDS: PRENATAL VITAMINS W/ FOLIC ACID TABLET (FP) PO SCH (10:51)
[2020-04-24] MEDS ORDERED: FLU VACCINE (FLULAVAL) PF 60 MCG/0.5 ML SYRINGE 2020-2021 IM ONE (12:00)
[2020-04-24] MEDS: MELATONIN 5 MG TABLETS PO SCH (22:08)
[2020-04-24] MEDS: QUEtiapine FUMARATE 100 MG TABLET (FP) PO SCH (22:08)
[2020-04-24] MEDS: THIAMINE HCL 100 MG TABLET (FP) PO SCH (22:08)
[2020-04-25] MEDS: chlordiazePOXIDE HCL 25 MG CAPSULE PO SCH ×4 (05:41→22:11)
[2020-04-25] MEDS: hydrOXYzine PAMOATE 25 MG CAPSULE (FP) PO SCH ×5 (05:42→22:11)
[2020-04-25] MEDS: PRENATAL VITAMINS W/ FOLIC ACID TABLET (FP) PO SCH (10:28)
[2020-04-25] MEDS: NICOTINE 14 MG/24 HOURS TOPICAL PATCH TD SCH (10:28)
[2020-04-25] MEDS: SERTRALINE HCL 50 MG TABLET (FP) PO SCH (10:29)
[2020-04-25] MEDS: MELATONIN 5 MG TABLETS PO SCH (22:11)
[2020-04-25] MEDS: QUEtiapine FUMARATE 100 MG TABLET (FP) PO SCH (22:11)
[2020-04-25] MEDS: THIAMINE HCL 100 MG TABLET (FP) PO SCH (22:11)
[2020-04-26] MEDS ORDERED: chlordiazePOXIDE HCL 10 MG CAPSULE PO PRN
[2020-04-26] MEDS: hydrOXYzine PAMOATE 25 MG CAPSULE (FP) PO SCH ×5 (06:24→22:31)
[2020-04-26] MEDS: chlordiazePOXIDE HCL 10 MG CAPSULE PO SCH ×4 (06:24→22:31)
[2020-04-26] MEDS: NICOTINE 14 MG/24 HOURS TOPICAL PATCH TD SCH (10:13)
[2020-04-26] MEDS: PRENATAL VITAMINS W/ FOLIC ACID TABLET (FP) PO SCH (10:13)
[2020-04-26] MEDS: SERTRALINE HCL 50 MG TABLET (FP) PO SCH (10:14)
[2020-04-26] MEDS: THIAMINE HCL 100 MG TABLET (FP) PO SCH (22:31)
[2020-04-26] MEDS: QUEtiapine FUMARATE 100 MG TABLET (FP) PO SCH (22:31)
[2020-04-26] MEDS: MELATONIN 5 MG TABLETS PO SCH (22:31)
[2020-04-26] MEDS: METHOCARBAMOL 500 MG TABLET PO PRN (22:31)
[2020-04-27] MEDS: chlordiazePOXIDE HCL 10 MG CAPSULE PO SCH ×2 (06:01→17:52)
[2020-04-27] MEDS: hydrOXYzine PAMOATE 25 MG CAPSULE (FP) PO SCH ×5 (06:02→22:36)
[2020-04-27] MEDS: NICOTINE 14 MG/24 HOURS TOPICAL PATCH TD SCH (10:20)
[2020-04-27] MEDS: SERTRALINE HCL 50 MG TABLET (FP) PO SCH (10:20)
[2020-04-27] MEDS: PRENATAL VITAMINS W/ FOLIC ACID TABLET (FP) PO SCH (10:20)
[2020-04-27] MEDS: THIAMINE HCL 100 MG TABLET (FP) PO SCH (22:36)
[2020-04-27] MEDS: QUEtiapine FUMARATE 100 MG TABLET (FP) PO SCH (22:36)
[2020-04-27] MEDS: MELATONIN 5 MG TABLETS PO SCH (22:36)
[2020-04-27 23:33] VITALS: TEMP 97.5
[2020-04-28] MEDS ORDERED: chlordiazePOXIDE HCL 10 MG CAPSULE PO ONE (05:00)
[2020-04-28] MEDS: hydrOXYzine PAMOATE 25 MG CAPSULE (FP) PO SCH ×2 (06:10→10:33)
[2020-04-28 06:41] VITALS: BP 100/60; PULSE 58
[2020-04-28] MEDS: NICOTINE 14 MG/24 HOURS TOPICAL PATCH TD SCH (10:33)
[2020-04-28] MEDS: SERTRALINE HCL 50 MG TABLET (FP) PO SCH (10:33)
[2020-04-28] MEDS: PRENATAL VITAMINS W/ FOLIC ACID TABLET (FP) PO SCH (10:33)
== END 2020-04-28 12:53 | disposition home or self-care (01) | DRG 775 ==
LOC: YASAS 09:24 → Y6N 12:35
PROVIDERS: ADMIT Allergy & Immunology; ATTEND Allergy & Immunology
PROC: HZ2ZZZZ Detoxification Services for Substance Abuse Treatment (ICD-10-PCS; principal; 2020-04-23)
DX: F10.230 Alcohol dependence with withdrawal, uncomplicated (principal); F17.210 Nicotine dependence, cigarettes, uncomplicated; F10.24 Alcohol dependence with alcohol-induced mood disorder; F19.24 Other psychoactive substance dependence with psychoactive substance-induced mood disorder; F31.9 Bipolar disorder, unspecified; F10.282 Alcohol dependence with alcohol-induced sleep disorder; F34.1 Dysthymic disorder; F51.05 Insomnia due to other mental disorder; E78.5 Hyperlipidemia, unspecified; M17.0 Bilateral primary osteoarthritis of knee; M19.032 Primary osteoarthritis, left wrist; M54.89 Other dorsalgia; G89.29 Other chronic pain; R76.11 Nonspecific reaction to tuberculin skin test without active tuberculosis; Z86.73 Personal history of transient ischemic attack (TIA), and cerebral infarction without residual deficits; Z86.69 Personal history of other diseases of the nervous system and sense organs; Z86.19 Personal history of other infectious and parasitic diseases; Z59.0 Homelessness; Z56.0 Unemployment, unspecified
CPT/HCPCS: 36415; 80053; 85027; 86780; 87389; C9803; Q0162; U0003

== ENCOUNTER 2021-07-20 12:11 | Inpatient (IN) | payer OTHER ==
[2021-07-20 12:49] VITALS: BMI 28.3
[2021-07-20] MEDS ORDERED: cloNIDine HCL 0.1 MG TABLET PO ONE (13:25)
[2021-07-20] MEDS ORDERED: chlordiazePOXIDE HCL 25 MG CAPSULE PO ONE (13:26)
[2021-07-20] MEDS ORDERED: MAG HYDROX/AL HYDROX/SIMETH 30 ML UNIT-DOSE CUP PO PRN (13:45)
[2021-07-20] MEDS ORDERED: BISMUTH SUBSALICYLATE 524 MG/30 ML PO PRN (13:45)
[2021-07-20] MEDS ORDERED: ONDANSETRON *ODT* 4 MG TABLET SL PRN (13:45)
[2021-07-20] MEDS ORDERED: MAGNESIUM CITRATE 300 ML BOTTLE PO PRN (13:45)
[2021-07-20] MEDS ORDERED: MAGNESIUM HYDROX 2400MG/30ML ORAL SUSPENSION 30 ML CUP PO PRN (13:45)
[2021-07-20] MEDS ORDERED: DICYCLOMINE HCL 10 MG CAPSULE PO PRN (13:45)
[2021-07-20] MEDS ORDERED: ACETAMINOPHEN 325 MG TABLET (FP) PO PRN (13:45)
[2021-07-20] MEDS ORDERED: NICOTINE 10 MG CARTRIDGE (INHALER) IH PRN (13:45)
[2021-07-20] MEDS ORDERED: LOPERAMIDE HCL 2 MG CAPSULE PO PRN (13:45)
[2021-07-20] MEDS ORDERED: BENZOCAINE/MENTHOL (CHLORASEPTIC ) LOZENGE MM PRN (13:45)
[2021-07-20] MEDS ORDERED: cloNIDine HCL 0.1 MG TABLET ONE (13:48)
[2021-07-20] MEDS: chlordiazePOXIDE HCL 25 MG CAPSULE PO SCH ×2 (17:42→22:27)
[2021-07-20] MEDS: IBUPROFEN 400 MG TABLET (FP) PO PRN (17:45)
[2021-07-20] MEDS: hydrOXYzine PAMOATE 25 MG CAPSULE (FP) PO PRN (20:11)
[2021-07-20] MEDS: METHOCARBAMOL 500 MG TABLET PO PRN (20:11)
[2021-07-20] MEDS: THIAMINE HCL 100 MG TABLET (FP) PO SCH (22:27)
[2021-07-20] MEDS: MELATONIN 5 MG TABLETS PO SCH (22:27)
[2021-07-21] MEDS: chlordiazePOXIDE HCL 25 MG CAPSULE PO PRN (01:45)
[2021-07-21] MEDS: chlordiazePOXIDE HCL 25 MG CAPSULE PO SCH ×4 (05:18→22:06)
[2021-07-21] MEDS: METHOCARBAMOL 500 MG TABLET PO PRN (05:20)
[2021-07-21 09:56] LABS: BILIRUBIN,TOTAL 0.9 mg/dL (0.2-1); HEMATOCRIT 35.7 % (35.4-49); HEMOGLOBIN 12.2 GM/dL (11.7-16.9); MCH 33.8 pg (25.7-33.7); MCHC 34.1 g/dl (32.0-35.9); MEAN CELL VOLUME 99.1 fl (80-96); MEAN PLT VOLUME 8.7 fl (7.5-11.1); PLATELET COUNT 65 10^3/uL (134-434); RDW 14.6 % (11.9-15.9); TOT PROT 6.4 g/dl (6.4-8.2); WHITE BLOOD COUNT 4.4 K/mm3 (4.0-10.0)
[2021-07-21 09:58] LABS: ALBUMIN 3.3 g/dl (3.4-5.0); BLOOD UREA NITROGEN 10.2 mg/dL (7-18); CALCIUM 8.5 mg/dL (8.5-10.1); CREATININE 0.7 mg/dL (0.55-1.3)
[2021-07-21] MEDS: PRENATAL VITAMINS W/ FOLIC ACID TABLET (FP) PO SCH (10:31)
[2021-07-21] MEDS ORDERED: POTASSIUM CHLORIDE ORAL LIQUID 20 MEQ/15 ML PO ONE ×2 (12:00→16:00)
[2021-07-21] MEDS: THIAMINE HCL 100 MG TABLET (FP) PO SCH (22:06)
[2021-07-21] MEDS: QUEtiapine FUMARATE 100 MG TABLET (FP) PO SCH (22:06)
[2021-07-21] MEDS: MELATONIN 5 MG TABLETS PO SCH ×2 (23:44→23:59)
[2021-07-21] MEDS: hydrOXYzine PAMOATE 25 MG CAPSULE (FP) PO PRN (23:59)
[2021-07-22] MEDS: chlordiazePOXIDE HCL 25 MG CAPSULE PO SCH ×4 (06:12→22:03)
[2021-07-22] MEDS: IBUPROFEN 400 MG TABLET (FP) PO PRN (06:13)
[2021-07-22] MEDS: PRENATAL VITAMINS W/ FOLIC ACID TABLET (FP) PO SCH (10:25)
[2021-07-22] MEDS: hydrOXYzine PAMOATE 25 MG CAPSULE (FP) PO PRN ×2 (10:25→16:59)
[2021-07-22] MEDS: METHOCARBAMOL 500 MG TABLET PO PRN (10:25)
[2021-07-22] MEDS: chlordiazePOXIDE HCL 25 MG CAPSULE PO PRN ×2 (12:36→19:19)
[2021-07-22 14:09] LABS: SARS-CoV-2 NAA Not Detected (Not Detected)
[2021-07-22] MEDS: QUEtiapine FUMARATE 100 MG TABLET (FP) PO SCH (22:03)
[2021-07-22] MEDS: THIAMINE HCL 100 MG TABLET (FP) PO SCH (22:03)
[2021-07-22] MEDS: MELATONIN 5 MG TABLETS PO SCH (22:03)
[2021-07-23] MEDS ORDERED: chlordiazePOXIDE HCL 10 MG CAPSULE PO PRN
[2021-07-23] MEDS: hydrOXYzine PAMOATE 25 MG CAPSULE (FP) PO PRN ×2 (03:58→10:39)
[2021-07-23] MEDS: METHOCARBAMOL 500 MG TABLET PO PRN ×2 (05:08→10:39)
[2021-07-23] MEDS: chlordiazePOXIDE HCL 10 MG CAPSULE PO SCH ×4 (05:08→22:03)
[2021-07-23] MEDS: PRENATAL VITAMINS W/ FOLIC ACID TABLET (FP) PO SCH (10:40)
[2021-07-23] MEDS: ACETAMINOPHEN 325 MG TABLET (FP) PO PRN (14:40)
[2021-07-23] MEDS: THIAMINE HCL 100 MG TABLET (FP) PO SCH (22:03)
[2021-07-23] MEDS: QUEtiapine FUMARATE 100 MG TABLET (FP) PO SCH (22:03)
[2021-07-23] MEDS: MELATONIN 5 MG TABLETS PO SCH (22:03)
[2021-07-24] MEDS: chlordiazePOXIDE HCL 10 MG CAPSULE PO SCH ×2 (05:34→17:03)
[2021-07-24] MEDS: hydrOXYzine PAMOATE 25 MG CAPSULE (FP) PO PRN (10:27)
[2021-07-24] MEDS: PRENATAL VITAMINS W/ FOLIC ACID TABLET (FP) PO SCH (10:27)
[2021-07-24] MEDS: METHOCARBAMOL 500 MG TABLET PO PRN (10:27)
[2021-07-24] MEDS: ACETAMINOPHEN 325 MG TABLET (FP) PO PRN (17:04)
[2021-07-24] MEDS: THIAMINE HCL 100 MG TABLET (FP) PO SCH (22:31)
[2021-07-24] MEDS: QUEtiapine FUMARATE 100 MG TABLET (FP) PO SCH (22:31)
[2021-07-24] MEDS: MELATONIN 5 MG TABLETS PO SCH (22:31)
[2021-07-25] MEDS ORDERED: chlordiazePOXIDE HCL 10 MG CAPSULE PO ONE (05:00)
[2021-07-25 09:05] VITALS: BP 102/56; PULSE 66; TEMP 97.3
[2021-07-25] MEDS: hydrOXYzine PAMOATE 25 MG CAPSULE (FP) PO PRN (10:18)
[2021-07-25] MEDS: PRENATAL VITAMINS W/ FOLIC ACID TABLET (FP) PO SCH (10:18)
== END 2021-07-25 11:35 | disposition other institution (70) | DRG 775 ==
LOC: YASAS 12:11 → Y6N 14:16
PROVIDERS: ADMIT Allergy & Immunology; ATTEND Surgery
PROC: HZ2ZZZZ Detoxification Services for Substance Abuse Treatment (ICD-10-PCS; principal; 2021-07-20)
DX: F10.230 Alcohol dependence with withdrawal, uncomplicated (principal); F10.24 Alcohol dependence with alcohol-induced mood disorder; F31.9 Bipolar disorder, unspecified; E78.5 Hyperlipidemia, unspecified; I10 Essential (primary) hypertension; M54.89 Other dorsalgia; G89.29 Other chronic pain; R73.9 Hyperglycemia, unspecified; Z86.73 Personal history of transient ischemic attack (TIA), and cerebral infarction without residual deficits; Z86.19 Personal history of other infectious and parasitic diseases; Z86.11 Personal history of tuberculosis; Z28.310 Unvaccinated for COVID-19; Z56.0 Unemployment, unspecified; Z59.00 Homelessness unspecified
CPT/HCPCS: 36415; 71046-TC-FY; 80053; 85027; 86780; 93005; 93010; C9803-CS; J0735; Q0162; U0003; U0005

== ENCOUNTER 2021-07-25 11:33 | Inpatient (IN) | payer OTHER ==
[2021-07-25] MEDS ORDERED: BENZOCAINE/MENTHOL (CHLORASEPTIC ) LOZENGE MM PRN (13:27)
[2021-07-25] MEDS ORDERED: guaiFENesin 200 MG/10 ML 10 ML UNIT-DOSE CUPS PO PRN (13:27)
[2021-07-25] MEDS ORDERED: MAG HYDROX/AL HYDROX/SIMETH 30 ML UNIT-DOSE CUP PO PRN (13:27)
[2021-07-25] MEDS ORDERED: LOPERAMIDE HCL 2 MG CAPSULE PO PRN (13:27)
[2021-07-25] MEDS ORDERED: MAGNESIUM CITRATE 300 ML BOTTLE PO PRN (13:27)
[2021-07-25] MEDS ORDERED: P-EPHED 60MG/TRIPROLIDI 2.5MG TABLET PO PRN (13:27)
[2021-07-25] MEDS: ACETAMINOPHEN 325 MG TABLET (FP) PO PRN (19:50)
[2021-07-25] MEDS: MELATONIN 5 MG TABLETS PO SCH (21:19)
[2021-07-25] MEDS: THIAMINE HCL 100 MG TABLET (FP) PO SCH (21:19)
[2021-07-25] MEDS: QUEtiapine FUMARATE 100 MG TABLET (FP) PO SCH (21:19)
[2021-07-26] MEDS: PRENATAL VITAMINS W/ FOLIC ACID TABLET (FP) PO SCH (10:57)
[2021-07-26] MEDS: MAGNESIUM HYDROX 2400MG/30ML ORAL SUSPENSION 30 ML CUP PO PRN (17:12)
[2021-07-26] MEDS: THIAMINE HCL 100 MG TABLET (FP) PO SCH (21:08)
[2021-07-26] MEDS: MELATONIN 5 MG TABLETS PO SCH (21:08)
[2021-07-26] MEDS: QUEtiapine FUMARATE 100 MG TABLET (FP) PO SCH (21:08)
[2021-07-27] MEDS: MAGNESIUM HYDROX 2400MG/30ML ORAL SUSPENSION 30 ML CUP PO PRN (07:04)
[2021-07-27] MEDS: SERTRALINE HCL 50 MG TABLET (FP) PO SCH (10:36)
[2021-07-27] MEDS: hydrOXYzine PAMOATE 25 MG CAPSULE (FP) PO PRN (10:36)
[2021-07-27] MEDS: PRENATAL VITAMINS W/ FOLIC ACID TABLET (FP) PO SCH (10:36)
[2021-07-27] MEDS ORDERED: QUEtiapine FUMARATE 50 MG TABLET ONE (18:40)
[2021-07-27] MEDS: THIAMINE HCL 100 MG TABLET (FP) PO SCH (21:13)
[2021-07-27] MEDS: MELATONIN 5 MG TABLETS PO SCH (21:13)
[2021-07-27] MEDS: QUEtiapine FUMARATE 100 MG TABLET (FP) PO SCH (21:13)
[2021-07-28] MEDS: MAGNESIUM HYDROX 2400MG/30ML ORAL SUSPENSION 30 ML CUP PO PRN (09:01)
[2021-07-28] MEDS: hydrOXYzine PAMOATE 25 MG CAPSULE (FP) PO PRN (09:58)
[2021-07-28] MEDS: PRENATAL VITAMINS W/ FOLIC ACID TABLET (FP) PO SCH (09:58)
[2021-07-28] MEDS: SERTRALINE HCL 50 MG TABLET (FP) PO SCH (09:58)
[2021-07-28] MEDS: NICOTINE 10 MG CARTRIDGE (INHALER) IH PRN (16:50)
[2021-07-28] MEDS: MELATONIN 5 MG TABLETS PO SCH (21:06)
[2021-07-28] MEDS: QUEtiapine FUMARATE 100 MG TABLET (FP) PO SCH (21:07)
[2021-07-28] MEDS: THIAMINE HCL 100 MG TABLET (FP) PO SCH (21:07)
[2021-07-29] MEDS: SERTRALINE HCL 50 MG TABLET (FP) PO SCH (09:49)
[2021-07-29] MEDS: PRENATAL VITAMINS W/ FOLIC ACID TABLET (FP) PO SCH (09:49)
[2021-07-29] MEDS: IBUPROFEN 400 MG TABLET (FP) PO PRN (10:56)
[2021-07-29 14:12] LABS: SARS-CoV-2 NAA Not Detected (Not Detected)
[2021-07-29] MEDS: QUEtiapine FUMARATE 100 MG TABLET (FP) PO SCH (21:04)
[2021-07-29] MEDS: MELATONIN 5 MG TABLETS PO SCH (21:04)
[2021-07-29] MEDS: THIAMINE HCL 100 MG TABLET (FP) PO SCH (21:04)
[2021-07-30] MEDS: MAGNESIUM HYDROX 2400MG/30ML ORAL SUSPENSION 30 ML CUP PO PRN (07:12)
[2021-07-30] MEDS: SERTRALINE HCL 50 MG TABLET (FP) PO SCH (09:54)
[2021-07-30] MEDS: hydrOXYzine PAMOATE 25 MG CAPSULE (FP) PO PRN (09:54)
[2021-07-30] MEDS: PRENATAL VITAMINS W/ FOLIC ACID TABLET (FP) PO SCH (09:54)
[2021-07-30] MEDS: IBUPROFEN 400 MG TABLET (FP) PO PRN (14:09)
[2021-07-30] MEDS: ACETAMINOPHEN 325 MG TABLET (FP) PO PRN (16:53)
[2021-07-30] MEDS: MELATONIN 5 MG TABLETS PO SCH (21:06)
[2021-07-30] MEDS: QUEtiapine FUMARATE 100 MG TABLET (FP) PO SCH (21:06)
[2021-07-30] MEDS: THIAMINE HCL 100 MG TABLET (FP) PO SCH (21:07)
[2021-07-31] MEDS: PRENATAL VITAMINS W/ FOLIC ACID TABLET (FP) PO SCH (10:13)
[2021-07-31] MEDS: MAGNESIUM HYDROX 2400MG/30ML ORAL SUSPENSION 30 ML CUP PO PRN (10:13)
[2021-07-31] MEDS: SERTRALINE HCL 50 MG TABLET (FP) PO SCH (10:13)
[2021-07-31] MEDS: hydrOXYzine PAMOATE 25 MG CAPSULE (FP) PO PRN (10:13)
[2021-07-31] MEDS: ACETAMINOPHEN 325 MG TABLET (FP) PO PRN (14:26)
[2021-07-31] MEDS: MELATONIN 5 MG TABLETS PO SCH (21:10)
[2021-07-31] MEDS: QUEtiapine FUMARATE 100 MG TABLET (FP) PO SCH (21:10)
[2021-07-31] MEDS: THIAMINE HCL 100 MG TABLET (FP) PO SCH (21:10)
[2021-08-01] MEDS: SERTRALINE HCL 50 MG TABLET (FP) PO SCH (10:19)
[2021-08-01] MEDS: PRENATAL VITAMINS W/ FOLIC ACID TABLET (FP) PO SCH (10:19)
[2021-08-01] MEDS: hydrOXYzine PAMOATE 25 MG CAPSULE (FP) PO PRN (10:19)
[2021-08-01] MEDS: ACETAMINOPHEN 325 MG TABLET (FP) PO PRN (17:05)
[2021-08-01] MEDS: MELATONIN 5 MG TABLETS PO SCH (21:05)
[2021-08-01] MEDS: THIAMINE HCL 100 MG TABLET (FP) PO SCH (21:05)
[2021-08-01] MEDS: QUEtiapine FUMARATE 100 MG TABLET (FP) PO SCH (21:05)
[2021-08-02] MEDS: PRENATAL VITAMINS W/ FOLIC ACID TABLET (FP) PO SCH (09:39)
[2021-08-02] MEDS: SERTRALINE HCL 50 MG TABLET (FP) PO SCH (09:39)
[2021-08-02] MEDS: IBUPROFEN 400 MG TABLET (FP) PO PRN (09:39)
[2021-08-02] MEDS: QUEtiapine FUMARATE 100 MG TABLET (FP) PO SCH (21:04)
[2021-08-02] MEDS: MELATONIN 5 MG TABLETS PO SCH (21:04)
[2021-08-02] MEDS: THIAMINE HCL 100 MG TABLET (FP) PO SCH (21:04)
[2021-08-03] MEDS: SERTRALINE HCL 50 MG TABLET (FP) PO SCH (09:37)
[2021-08-03] MEDS: PRENATAL VITAMINS W/ FOLIC ACID TABLET (FP) PO SCH (09:37)
[2021-08-03] MEDS: QUEtiapine FUMARATE 100 MG TABLET (FP) PO SCH (22:20)
[2021-08-03] MEDS: MELATONIN 5 MG TABLETS PO SCH (22:20)
[2021-08-03] MEDS: THIAMINE HCL 100 MG TABLET (FP) PO SCH (22:20)
[2021-08-04] MEDS: PRENATAL VITAMINS W/ FOLIC ACID TABLET (FP) PO SCH (09:44)
[2021-08-04] MEDS: SERTRALINE HCL 50 MG TABLET (FP) PO SCH (09:44)
[2021-08-04] MEDS: IBUPROFEN 400 MG TABLET (FP) PO PRN (11:22)
[2021-08-04] MEDS: THIAMINE HCL 100 MG TABLET (FP) PO SCH (21:49)
[2021-08-04] MEDS: QUEtiapine FUMARATE 100 MG TABLET (FP) PO SCH (21:49)
[2021-08-04] MEDS: MELATONIN 5 MG TABLETS PO SCH (21:49)
[2021-08-05] MEDS: SERTRALINE HCL 50 MG TABLET (FP) PO SCH (09:49)
[2021-08-05] MEDS: PRENATAL VITAMINS W/ FOLIC ACID TABLET (FP) PO SCH (09:49)
[2021-08-05] MEDS: NICOTINE 10 MG CARTRIDGE (INHALER) IH PRN (15:23)
[2021-08-05] MEDS: THIAMINE HCL 100 MG TABLET (FP) PO SCH (21:05)
[2021-08-05] MEDS: QUEtiapine FUMARATE 100 MG TABLET (FP) PO SCH (21:05)
[2021-08-05] MEDS: MELATONIN 5 MG TABLETS PO SCH (21:05)
[2021-08-06] MEDS: SERTRALINE HCL 50 MG TABLET (FP) PO SCH (09:48)
[2021-08-06] MEDS: PRENATAL VITAMINS W/ FOLIC ACID TABLET (FP) PO SCH (09:48)
[2021-08-06] MEDS: IBUPROFEN 400 MG TABLET (FP) PO PRN (09:48)
[2021-08-06] MEDS: MELATONIN 5 MG TABLETS PO SCH (21:01)
[2021-08-06] MEDS: THIAMINE HCL 100 MG TABLET (FP) PO SCH (21:01)
[2021-08-06] MEDS: QUEtiapine FUMARATE 100 MG TABLET (FP) PO SCH (21:01)
[2021-08-07] MEDS: SERTRALINE HCL 50 MG TABLET (FP) PO SCH (10:17)
[2021-08-07] MEDS: PRENATAL VITAMINS W/ FOLIC ACID TABLET (FP) PO SCH (10:17)
[2021-08-07] MEDS: THIAMINE HCL 100 MG TABLET (FP) PO SCH (21:00)
[2021-08-07] MEDS: QUEtiapine FUMARATE 100 MG TABLET (FP) PO SCH (21:00)
[2021-08-07] MEDS: MELATONIN 5 MG TABLETS PO SCH (21:00)
[2021-08-08] MEDS: PRENATAL VITAMINS W/ FOLIC ACID TABLET (FP) PO SCH (09:51)
[2021-08-08] MEDS: SERTRALINE HCL 50 MG TABLET (FP) PO SCH (09:51)
[2021-08-08] MEDS: hydrOXYzine PAMOATE 25 MG CAPSULE (FP) PO PRN (10:16)
[2021-08-08] MEDS: THIAMINE HCL 100 MG TABLET (FP) PO SCH (21:03)
[2021-08-08] MEDS: QUEtiapine FUMARATE 100 MG TABLET (FP) PO SCH (21:03)
[2021-08-08] MEDS: MELATONIN 5 MG TABLETS PO SCH (21:03)
[2021-08-09] MEDS: PRENATAL VITAMINS W/ FOLIC ACID TABLET (FP) PO SCH (09:51)
[2021-08-09] MEDS: hydrOXYzine PAMOATE 25 MG CAPSULE (FP) PO PRN (09:51)
[2021-08-09] MEDS: SERTRALINE HCL 50 MG TABLET (FP) PO SCH (09:51)
[2021-08-09] MEDS: MELATONIN 5 MG TABLETS PO SCH (21:00)
[2021-08-09] MEDS: QUEtiapine FUMARATE 100 MG TABLET (FP) PO SCH (21:00)
[2021-08-09] MEDS: THIAMINE HCL 100 MG TABLET (FP) PO SCH (21:00)
[2021-08-10] MEDS: hydrOXYzine PAMOATE 25 MG CAPSULE (FP) PO PRN (10:00)
[2021-08-10] MEDS: SERTRALINE HCL 50 MG TABLET (FP) PO SCH (10:00)
[2021-08-10] MEDS: PRENATAL VITAMINS W/ FOLIC ACID TABLET (FP) PO SCH (10:01)
[2021-08-10] MEDS: MELATONIN 5 MG TABLETS PO SCH (21:34)
[2021-08-10] MEDS: QUEtiapine FUMARATE 100 MG TABLET (FP) PO SCH (21:34)
[2021-08-10] MEDS: THIAMINE HCL 100 MG TABLET (FP) PO SCH (21:35)
[2021-08-11] MEDS: SERTRALINE HCL 50 MG TABLET (FP) PO SCH (09:55)
[2021-08-11] MEDS: PRENATAL VITAMINS W/ FOLIC ACID TABLET (FP) PO SCH (09:55)
[2021-08-11] MEDS: hydrOXYzine PAMOATE 25 MG CAPSULE (FP) PO PRN (09:55)
[2021-08-11] MEDS: QUEtiapine FUMARATE 100 MG TABLET (FP) PO SCH (21:00)
[2021-08-11] MEDS: THIAMINE HCL 100 MG TABLET (FP) PO SCH (21:00)
[2021-08-11] MEDS: MELATONIN 5 MG TABLETS PO SCH (21:00)
[2021-08-12] MEDS: PRENATAL VITAMINS W/ FOLIC ACID TABLET (FP) PO SCH (09:45)
[2021-08-12] MEDS: SERTRALINE HCL 50 MG TABLET (FP) PO SCH (09:45)
[2021-08-12] MEDS: QUEtiapine FUMARATE 100 MG TABLET (FP) PO SCH (21:00)
[2021-08-12] MEDS: THIAMINE HCL 100 MG TABLET (FP) PO SCH (21:00)
[2021-08-12] MEDS: MELATONIN 5 MG TABLETS PO SCH (21:00)
[2021-08-13] MEDS: PRENATAL VITAMINS W/ FOLIC ACID TABLET (FP) PO SCH (09:58)
[2021-08-13] MEDS: SERTRALINE HCL 50 MG TABLET (FP) PO SCH (09:58)
[2021-08-13] MEDS: hydrOXYzine PAMOATE 25 MG CAPSULE (FP) PO PRN (09:58)
[2021-08-13] MEDS: QUEtiapine FUMARATE 100 MG TABLET (FP) PO SCH (21:00)
[2021-08-13] MEDS: THIAMINE HCL 100 MG TABLET (FP) PO SCH (21:01)
[2021-08-13] MEDS: MELATONIN 5 MG TABLETS PO SCH (21:01)
[2021-08-14] MEDS: PRENATAL VITAMINS W/ FOLIC ACID TABLET (FP) PO SCH (10:34)
[2021-08-14] MEDS: SERTRALINE HCL 50 MG TABLET (FP) PO SCH (10:34)
[2021-08-14] MEDS: ACETAMINOPHEN 325 MG TABLET (FP) PO PRN (13:38)
[2021-08-14] MEDS: QUEtiapine FUMARATE 100 MG TABLET (FP) PO SCH (21:00)
[2021-08-14] MEDS: THIAMINE HCL 100 MG TABLET (FP) PO SCH (21:00)
[2021-08-14] MEDS: MELATONIN 5 MG TABLETS PO SCH (21:00)
[2021-08-15] MEDS: PRENATAL VITAMINS W/ FOLIC ACID TABLET (FP) PO SCH (09:55)
[2021-08-15] MEDS: SERTRALINE HCL 50 MG TABLET (FP) PO SCH (09:55)
[2021-08-15] MEDS: QUEtiapine FUMARATE 100 MG TABLET (FP) PO SCH (21:08)
[2021-08-15] MEDS: THIAMINE HCL 100 MG TABLET (FP) PO SCH (21:08)
[2021-08-15] MEDS: MELATONIN 5 MG TABLETS PO SCH (21:08)
[2021-08-16] MEDS: PRENATAL VITAMINS W/ FOLIC ACID TABLET (FP) PO SCH (10:16)
[2021-08-16] MEDS: SERTRALINE HCL 50 MG TABLET (FP) PO SCH (10:16)
[2021-08-16] MEDS: THIAMINE HCL 100 MG TABLET (FP) PO SCH (21:00)
[2021-08-16] MEDS: MELATONIN 5 MG TABLETS PO SCH (21:00)
[2021-08-16] MEDS: QUEtiapine FUMARATE 100 MG TABLET (FP) PO SCH (21:00)
[2021-08-17] MEDS: PRENATAL VITAMINS W/ FOLIC ACID TABLET (FP) PO SCH (09:59)
[2021-08-17] MEDS: SERTRALINE HCL 50 MG TABLET (FP) PO SCH (09:59)
[2021-08-17] MEDS: QUEtiapine FUMARATE 100 MG TABLET (FP) PO SCH (21:03)
[2021-08-17] MEDS: MELATONIN 5 MG TABLETS PO SCH (21:03)
[2021-08-17] MEDS: THIAMINE HCL 100 MG TABLET (FP) PO SCH (21:03)
[2021-08-18] MEDS: PRENATAL VITAMINS W/ FOLIC ACID TABLET (FP) PO SCH (10:41)
[2021-08-18] MEDS: hydrOXYzine PAMOATE 25 MG CAPSULE (FP) PO PRN (10:41)
[2021-08-18] MEDS: SERTRALINE HCL 50 MG TABLET (FP) PO SCH (10:41)
[2021-08-18] MEDS: QUEtiapine FUMARATE 100 MG TABLET (FP) PO SCH (21:02)
[2021-08-18] MEDS: THIAMINE HCL 100 MG TABLET (FP) PO SCH (21:02)
[2021-08-18] MEDS: MELATONIN 5 MG TABLETS PO SCH (21:02)
[2021-08-19] MEDS: hydrOXYzine PAMOATE 25 MG CAPSULE (FP) PO PRN (10:38)
[2021-08-19] MEDS: PRENATAL VITAMINS W/ FOLIC ACID TABLET (FP) PO SCH (10:39)
[2021-08-19] MEDS: SERTRALINE HCL 50 MG TABLET (FP) PO SCH (10:39)
[2021-08-19] MEDS: QUEtiapine FUMARATE 100 MG TABLET (FP) PO SCH (21:00)
[2021-08-19] MEDS: MELATONIN 5 MG TABLETS PO SCH (21:00)
[2021-08-19] MEDS: THIAMINE HCL 100 MG TABLET (FP) PO SCH (21:00)
[2021-08-20] MEDS: PRENATAL VITAMINS W/ FOLIC ACID TABLET (FP) PO SCH (10:43)
[2021-08-20] MEDS: SERTRALINE HCL 50 MG TABLET (FP) PO SCH (10:43)
[2021-08-20] MEDS: hydrOXYzine PAMOATE 25 MG CAPSULE (FP) PO PRN (10:44)
[2021-08-20] MEDS: QUEtiapine FUMARATE 100 MG TABLET (FP) PO SCH (21:02)
[2021-08-20] MEDS: THIAMINE HCL 100 MG TABLET (FP) PO SCH (21:02)
[2021-08-20] MEDS: MELATONIN 5 MG TABLETS PO SCH (21:02)
[2021-08-21] MEDS: hydrOXYzine PAMOATE 25 MG CAPSULE (FP) PO PRN (10:45)
[2021-08-21] MEDS: SERTRALINE HCL 50 MG TABLET (FP) PO SCH (10:45)
[2021-08-21] MEDS: PRENATAL VITAMINS W/ FOLIC ACID TABLET (FP) PO SCH (10:45)
[2021-08-21] MEDS: QUEtiapine FUMARATE 100 MG TABLET (FP) PO SCH (21:01)
[2021-08-21] MEDS: MELATONIN 5 MG TABLETS PO SCH (21:01)
[2021-08-21] MEDS: THIAMINE HCL 100 MG TABLET (FP) PO SCH (21:01)
[2021-08-22 07:56] VITALS: BP 100/70; PULSE 84; TEMP 97.8
[2021-08-22] MEDS: SERTRALINE HCL 50 MG TABLET (FP) PO SCH (09:28)
[2021-08-22] MEDS: PRENATAL VITAMINS W/ FOLIC ACID TABLET (FP) PO SCH (09:28)
[2021-08-22] MEDS: hydrOXYzine PAMOATE 25 MG CAPSULE (FP) PO PRN (09:28)
== END 2021-08-22 09:53 | disposition home or self-care (01) | DRG 772 ==
LOC: YASAS 11:33 → Y3W 11:34
PROVIDERS: ADMIT Allergy & Immunology; ATTEND Psychiatry & Neurology Pain Medicine
PROC: HZ42ZZZ Group Counseling for Substance Abuse Treatment, Cognitive-Behavioral (ICD-10-PCS; principal; 2021-07-25)
DX: F10.20 Alcohol dependence, uncomplicated (principal); F10.24 Alcohol dependence with alcohol-induced mood disorder; F31.81 Bipolar II disorder; D69.6 Thrombocytopenia, unspecified; E78.5 Hyperlipidemia, unspecified; M54.50 Low back pain, unspecified; G89.29 Other chronic pain; Z86.73 Personal history of transient ischemic attack (TIA), and cerebral infarction without residual deficits; Z86.11 Personal history of tuberculosis; Z86.19 Personal history of other infectious and parasitic diseases; Z56.0 Unemployment, unspecified; Z59.00 Homelessness unspecified
CPT/HCPCS: 36415; 84132; C9803-CS; U0003; U0005